=== PATIENT | female | born 1970 | race Caucasian/White ===

== ENCOUNTER 2021-07-11 14:25 | Inpatient (IN) | payer MEDICAID, SELFPAY ==
[2021-07-11 14:36] VITALS: BP 157/72; PULSE 68; RESP 17; TEMP 37.1; O2SAT 98
[2021-07-11 14:42] VITALS: BMI 41.1
[2021-07-11] MEDS: pantoprazole DR 40 mg Tablet PO (18:18)
[2021-07-11] MEDS: pregabalin 75 mg Capsule PO (18:18)
[2021-07-11 20:06] VITALS: BP 142/90; PULSE 70; RESP 18; O2SAT 99
[2021-07-12 06:00] VITALS: BP 117/70; PULSE 67; RESP 18; TEMP 36.4; O2SAT 99
[2021-07-12] MEDS: loperamide 2 mg Capsule PO (07:26)
[2021-07-12] MEDS: pantoprazole DR 40 mg Tablet PO ×2 (08:56→17:20)
[2021-07-12] MEDS: sertraline 100 mg Tablet PO (08:56)
[2021-07-12] MEDS: lisinopril 20 mg Tablet PO (08:56)
[2021-07-12] MEDS: pregabalin 75 mg Capsule PO ×2 (08:56→17:20)
[2021-07-12] MEDS: thyroid 60 mg Tablet 30 MG PO (08:59)
[2021-07-12] MEDS: acetaminophen 325 mg Tablet 650 MG PO ×2 (12:17→17:20)
[2021-07-12 14:00] VITALS: BP 117/70; PULSE 67; RESP 18; TEMP 36.4; O2SAT 99
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
[2021-07-12 14:22] VITALS: BP 113/73; PULSE 66; RESP 16; TEMP 36.4; O2SAT 100
[2021-07-12 19:55] VITALS: BP 97/64; PULSE 60; RESP 15; O2SAT 99
[2021-07-12] MEDS: amitriptyline 25 mg Tablet PO (20:59)
[2021-07-13 06:00] VITALS: BP 104/60; PULSE 55; RESP 14; O2SAT 97
[2021-07-13] MEDS: lisinopril 20 mg Tablet PO (08:52)
[2021-07-13] MEDS: sertraline 100 mg Tablet PO (08:52)
[2021-07-13] MEDS: pantoprazole DR 40 mg Tablet PO ×2 (08:52→17:52)
[2021-07-13] MEDS: pregabalin 75 mg Capsule PO ×2 (08:52→17:52)
[2021-07-13] MEDS: thyroid 60 mg Tablet 30 MG PO (08:52)
--- NOTE | 2021-07-13 12:58 | NPU.GN ---
[facility] Group Topic: Coping Bingo General Mood of Group: Patient did come to group on time, appropriately dressed. Good Hygiene. The patient did participate in oping Bingo. The patient did communicated when needed. The patient was not disruptive in group.
[2021-07-13] MEDS: acetaminophen 325 mg Tablet 650 MG PO ×2 (13:24→20:38)
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
[2021-07-13 13:56] VITALS: BP 106/74; PULSE 61; RESP 16; TEMP 36.9; O2SAT 93
[2021-07-13] MEDS: amitriptyline 25 mg Tablet 50 MG PO (20:38)
[2021-07-13 21:29] VITALS: BP 113/64; PULSE 59; RESP 18; TEMP 36.7; O2SAT 97
[2021-07-14 06:00] VITALS: BP 113/69; PULSE 72; RESP 17; TEMP 36.4; O2SAT 98
[2021-07-14] MEDS: thyroid 60 mg Tablet 30 MG PO (09:43)
[2021-07-14] MEDS: sertraline 100 mg Tablet PO (09:44)
[2021-07-14] MEDS: lisinopril 20 mg Tablet PO (09:44)
[2021-07-14] MEDS: pantoprazole DR 40 mg Tablet PO ×2 (09:44→17:10)
[2021-07-14] MEDS: pregabalin 75 mg Capsule PO ×2 (09:44→17:10)
[2021-07-14 14:00] VITALS: BP 96/64; PULSE 68; RESP 15; TEMP 36.8; O2SAT 100
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
[2021-07-14] MEDS: acetaminophen 325 mg Tablet 650 MG PO (15:57)
[2021-07-14 20:39] VITALS: BP 103/62; PULSE 65; RESP 18; TEMP 36.8; O2SAT 97
[2021-07-14] MEDS: amitriptyline 25 mg Tablet 50 MG PO (21:00)
[2021-07-15 06:00] VITALS: RESP 17; BMI 41.1
[2021-07-15] MEDS: pantoprazole DR 40 mg Tablet PO ×2 (08:28→17:25)
[2021-07-15] MEDS: lisinopril 20 mg Tablet PO (08:28)
[2021-07-15] MEDS: pregabalin 75 mg Capsule PO ×2 (08:28→17:25)
[2021-07-15] MEDS: sertraline 100 mg Tablet PO (08:28)
[2021-07-15] MEDS: thyroid 60 mg Tablet 30 MG PO (08:29)
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
[2021-07-15 14:00] VITALS: BP 105/73; PULSE 66; RESP 18; TEMP 36.8; O2SAT 99
[2021-07-15] MEDS: acetaminophen 325 mg Tablet 650 MG PO (16:31)
[2021-07-15] MEDS: amitriptyline 25 mg Tablet 50 MG PO (20:29)
[2021-07-15 21:00] VITALS: BP 109/68; PULSE 65; RESP 17; O2SAT 99
[2021-07-16 06:00] VITALS: BP 141/97; PULSE 91; RESP 20; O2SAT 100
--- NOTE | 2021-07-16 06:23 | PC.NURSE ---
Pt up to nurses desk, c/o rt lower abdominal pain described as sharp and radiating to her back. Dr Andrews notified. Order for Hospitalist consult received. Consult order placed, Dr Rai notified. Vital signs obtained, t-07.5, p-91, r-20, bp-141/97, spo2 of 100% on room air. Order received for HCG level, order noted and placed. Dr will see pt KASSY.
--- NOTE | 2021-07-16 07:58 | CT_ITS ---
WS: [id number] CT ABDOMEN AND PELVIS WITH CONTRAST HISTORY: RLQ pain TECHNIQUE: Imaging performed of the abdomen and pelvis with IV contrast. Single phase imaging of the abdomen. Coronal and sagittal reformats are submitted. All CT scans at [facility] use at [address] one of these dose optimization techniques: automated exposure control; mA and/or kV adjustment per patient size (includes targeted exams where dose is matched to clinical indication); or iterative re construction. IV CONTRAST: Omnipaque 300; 95 mL IV. Oral contrast: No DLP: 2123.22 mGy.cm COMPARISON: None available. Lower thorax: Lung bases are clear. Heart is normal size. Small hiatal hernia. Liver/biliary system: Normal size with no intrahepatic dilatation. Gallbladder: Status post cholecystectomy. Pancreas: Normal size pancreas and pancreatic duct. No adjacent inflammation. Spleen: Top normal size at 13.2 cm. Adrenal glands: Normal. Right kidney: 4 mm calcification in the distal RIGHT ureter. There is very minimal dilatation of the RIGHT renal pelvis and ureter. No edema additional calcifications are identified. Left kidney: Low-attenuation 18 mm nodule upper pole no calcifications or obstruction. Aorta: Normal. Lymphadenopathy: None. Free fluid: None. GI tract: Normal appendix. There is mild diffuse constipation with no obstruction. No bowel wall thic kening. Abdominal wall: Fat containing umbilical hernia. Pelvis: No free fluid or adenopathy within the pelvis. Bones: Mild disc space narrowing at L4-5 and L5-S1. CT/CT abdomen pelvis w con* [id number] IMPRESSION: 1. 4 mm distal RIGHT ureteral calcification causing a very minimal hydroureter onephrosis. 2. Normal appendix. 3. No free air or adenopathy. 4. Prior cholecystectomy.
--- NOTE | 2021-07-16 08:00 | P.CONIM_ITS ---
Providers/Reason For Consult Consulting Physician/Specialty*: Israel Olivas MD, hospitalist Reason for Consult*: Abdominal pain Attending Physician: Jerson Dang MD History of Present Illness History of Present Illness Mee Wolfe is a 50 year old female who reports she has had acute onset of abdominal pain this morning, around 4 AM or so. She states it is in the right side, more on the lower side. She denies having discomfort like this in the past. She has had kidney stone issues but it is felt different. She reports some nausea but no vomiting. She has had no blood in her stools or black or tarry stools. Last bowel movement was yesterday, and was not loose or hard. Nursing has not recorded any fevers. She was hospitalized initially for suicide attempt on July 12. Previous to this hospital stay she has been in several facilities and had work-up of right upper quadrant abdominal pain. From previous work-up in outside hospital around 2 weeks ago she received an EGD which demonstrated gastritis. CT abdomen and pelvis with contrast demonstrated a 3 mm right kidney stone, with no evidence of obstruction or hydroureter. Laboratory at that time demonstrated some anemia, consistent with iron deficiency anemia. Patient reports she has not had a period and 5 to 6 years and is postmenopausal. Urine test both serum and urine done around July 05 and July 06 were both negative. Review of Systems General: Reports: 10 or more systems reviewed and unremarkable except in HPI and below Const: Denies: fever(s) or chills Eyes: Denies: change in vision ENMT: Denies: throat pain Card: Denies: chest pain Resp: Denies: dyspnea GI: Reports: abdominal pain and nausea; Denies: vomiting, diarrhea, constipation, hematochezia or melena : Denies: difficulty voiding, dysuria or urinary urgency Musc: Reports: back pain; Denies: neck pain Skin/Breast: Denies: rash Neuro: Denies: headache(s) Psych: Reports: depression Endo: Denies: polyuria Alberto/Lymph: Denies: easy bruising All/Imm: Denies: urticaria Meds/Allergies Home Medications and Allergies Home Medications Medication Instructions Recorded Confirmed Last Taken Type Damar Thyroid 30 mg PO DAILY 07/11/21 07/11/21 Unknown History hydroxyzine pamoate 25 mg PO QID PRN 07/11/21 07/11/21 Unknown History lisinopril 20 mg PO DAILY 07/11/21 07/11/21 Unknown History ondansetron 4 mg BUCCAL TID PRN 07/11/21 07/11/21 Unknown History pantoprazole 40 mg PO BID 07/11/21 07/11/21 Unknown History pregabalin 75 mg PO BID 07/11/21 07/11/21 Unknown History promethazine 25 mg PO QID PRN 07/11/21 07/11/21 Unknown History sertraline 100 mg PO DAILY 07/11/21 07/11/21 Unknown History Allergies Allergy/AdvReac Type Severity Reaction Status Date / Time cumin Allergy Mild ADR-Itching Verified 07/11/21 17:52 tomato Allergy ALGY-Rash Verified 07/11/21 17:52 Current Medications Current Medications Generic Name Dose Route Start Last Admin Trade Name Freq PRN Reason Stop Dose Admin Acetaminophen 650 mg 07/11/21 14:36 07/15/21 16:31 Acetaminophen 325 Mg Tablet PO 650 mg Q4H PRN Administration MILD PAIN Amitriptyline HCl 50 mg 07/13/21 21:00 07/15/21 20:29 Amitriptyline 25 Mg Tablet PO 50 mg BEDTIME ALESSANDRA Administration Lisinopril 20 mg 07/12/21 09:00 07/15/21 08:28 Lisinopril 20 Mg Tablet PO 20 mg DAILY ALESSANDRA Administration Loperamide HCl 2 mg 07/11/21 14:36 07/12/21 07:26 Loperamide 2 Mg Capsule PO 2 mg Q6H PRN Administration DIARRHEA Pantoprazole Sodium 40 mg 07/11/21 18:00 07/15/21 17:[address] 40 Mg Tablet PO 40 mg BID ALESSANDRA Administration Pregabalin 75 mg 07/11/21 18:00 07/15/21 17:25 Pregabalin 75 Mg Capsule PO 75 mg BID ALESSANDRA Administration Sertraline HCl 100 mg 07/12/21 09:00 07/15/21 08:28 Sertraline 100 Mg Tablet PO 100 mg DAILY ALESSANDRA Administration Thyroid 30 mg 07/12/21 09:00 07/15/21 08:29 Thyroid 60 Mg Tablet PO 30 mg DAILY ALESSANDRA Administration PFSH Acute PFSH: Medical History (Updated 07/16/21 @ 08:11 by Israel Olivas MD) Asthma Chronic back pain Depression, major, severe recurrence Fibromyalgia Gastritis GERD (gastroesophageal reflux disease) Hypertension Hypothyroidism Surgical History (Updated 07/16/21 @ 08:05 by Israel Olivas MD) History of History of cholecystectomy History of surgery on arm Family History (Updated 07/16/21 @ 08:06 by Israel Olivas MD) Other Cancer Social History (Updated 07/16/21 @ 08:06 by Israel Olivas MD) Smoking and tobacco status: former smoker Alcohol intake: never Vitals/I&O/Wt Last Vital Signs Temp 98.2 F 07/15/21 14:00 Pulse 91 07/16/21 06:00 Resp 20 H 07/16/21 06:00 BP 141/97 07/16/21 06:00 Pulse Ox 100 07/16/21 06:00 Weight last 48 hrs Weight 108.862 kg Physical Exam Narrative: EXAM NARRATIVE: General exam demonstrates a white female, co mplaining of right lower quadrant pain, holding pressure on the area HEENT: Pupils equally round. Oropharynx clear. Neck is supple no lymphadenopathy or thyromegaly Cardiovascular regular rate and rhythm, no murmur Lungs clear Abdomen is soft. Positive bowel sounds. Tenderness right lower quadrant. No obvious organomegaly. exam is deferred Extremities no cyanosis clubbing or edema, cap refill brisk. Skin no rash Neuro no obvious focal deficits Data Other Data: Other data: Laboratory from July 05 demonstrated a sodium 139, potassium 4.8, chloride 105, bicarb 26, BUN 25, creatinine 1.4, glucose 93 LFTs were normal. Lipase was normal. CT abdomen and pelvis with contrast demonstrated splenomegaly, 3 mm calculus right kidney Urine test on July 06 was negative. UA demonstrated trace protein and trace blood and was leukocyte Estrace negative. UDS was positive for opiates Covid PCR negative B12 level normal. Iron saturation low. TSH normal. Written historical report references an EGD done 2 to 4 weeks ago that showed gastritis, done for right-sided, upper quadrant pain. EKG demonstrated normal sinus rhythm, normal axis To my knowledge she has had no other imaging tests or lab work since around July 06. A&P Assessment and plan (1) Abdominal pain: Etiology unclear. She was complaining more of right upper quadrant discomfort during her last hospital stay at an outside hospital. As the location has changed we will have to reevaluate. Obtain serum test, CBC, CMP, lipase, urinalysis stat. CT abdomen and pelvis with contrast urgent. N.p.o. for now. Has medication for nausea. If work-up completely negative and pain persists consider pelvic ultrasound. Differential diagnosis could be ureterolithiasis, appendicitis, gynecologic in nature, functional. Status: Acute Additional A&P Information Suicide attempt, severe depression. Under care of psychiatry. Hypothyroidism, TSH recently normal Anemia, iron deficient. Recent diagnosis of gastritis on EGD several weeks ago. Consider oral iron as an outpatient, and reevaluation with a CBC as outpatient. Fibromyalgia Chronic back pain GERD/gastritis. 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
[2021-07-16] MEDS: sertraline 100 mg Tablet PO (08:30)
[2021-07-16] MEDS: lisinopril 20 mg Tablet PO (08:30)
[2021-07-16] MEDS: thyroid 60 mg Tablet 30 MG PO (08:30)
[2021-07-16] MEDS: pregabalin 75 mg Capsule PO ×2 (08:30→18:06)
[2021-07-16] MEDS: pantoprazole DR 40 mg Tablet PO ×2 (08:31→18:06)
[2021-07-16 11:36] LABS: Basophils % 0.8 %; Eosinophils # 0.1 10^3/uL (0.0-0.8); Hematocrit 33.5 % (37.0-47.0); Hemoglobin 10.5 g/dL (11.5-15.3); Lymphocytes # 1.3 10^3/uL (0.8-4.8); Lymphocytes % 26.4 %; Mean Corpuscular HGB Conc 31.3 g/dL (30.0-36.0); Mean Corpuscular Hemoglobin 27.3 pg (28.0-34.0); Mean Corpuscular Volume 87.2 fl (81-99); Mean Platelet Volume 10.4 fL (7.4-10.4); Monocytes # 0.2 10^3/uL (0.2-0.9); Neutrophils # 3.22 10^3/uL (1.8-7.7); Neutrophils % 67.6 %; Nucleated Red Blood Cells % 0 %; Platelet Count 228 10^3/cmm (130-400); Red Blood Count 3.84 10^6/uL (4.1-5.3); Red Cell Distribution Width 15.2 % (12.1-15.1); White Blood Count 4.8 10^3/uL (4.0-10.0)
[2021-07-16] MEDS: iohexol 300 mg/mL 100 mL Btl IV (12:05)
[2021-07-16 12:22] LABS: HCG, Serum Qual Negative (Negative)
[2021-07-16 12:28] LABS: Alanine Aminotransferase 11 U/L (0-33); Albumin Level 3.6 g/dL (3.5-5.2); Alkaline Phosphatase 74 IU/L (35-105); Chloride 106 mmol/L (98-107); Potassium 4.6 mmol/L (3.5-5.1); Sodium 140 mmol/L (136-145)
--- NOTE | 2021-07-16 12:37 | PC.NURSE ---
PT OFF UNIT TO CT VIA WHEELCHAIR WITH NURSING STAFF X1 FROM 1150 TO 1230.
[2021-07-16 13:10] LABS: Anion Gap 14.6 (5-19); Aspartate Amino Transferase 16 U/L (0-32); Blood Urea Nitrogen 19 mg/dL (6-20); Calcium 8.7 mg/dL (8.5-10.5); Carbon Dioxide 24 mmol/L (22-29); Globulin 2.3 g/dL (1.3-4.6); Glomerular Filtration Rate 43.2 mL/min (90-130); Glucose 75 mg/dL (65-115); Lipase 42 U/L (13-60); Osmolality Calculated 291 mOsm/kg (285-295); Total Bilirubin 0.3 mg/dL (0.15-1.2); Total Protein 5.9 g/dL (6.6-8.7)
--- NOTE | 2021-07-16 13:21 | NPU.GN ---
[facility] Topic:Psychiatric Education General Mood of Group: Mee did not attend or participate in group today.
[2021-07-16 13:56] VITALS: BP 125/69; PULSE 85; RESP 16; TEMP 36.3; O2SAT 98
[2021-07-16] MEDS: ondansetron 4 MG Tablet PO ×2 (14:23→21:35)
[2021-07-16] MEDS: HYDROcodone-acetaminophen 5-325 mg Tablet 1 TAB PO ×3 (14:23→22:33)
[2021-07-16] MEDS: amitriptyline 25 mg Tablet 50 MG PO (20:11)
[2021-07-16 22:00] VITALS: BP 104/56; PULSE 68; RESP 15; O2SAT 94
[2021-07-17] MEDS: HYDROcodone-acetaminophen 5-325 mg Tablet 1 TAB PO ×2 (02:14→07:28)
[2021-07-17 06:00] VITALS: BP 130/74; PULSE 70; RESP 16; O2SAT 98
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
[2021-07-17] MEDS: thyroid 60 mg Tablet 30 MG PO (09:57)
[2021-07-17] MEDS: sertraline 100 mg Tablet PO (09:57)
[2021-07-17] MEDS: pregabalin 75 mg Capsule PO (09:57)
[2021-07-17] MEDS: pantoprazole DR 40 mg Tablet PO (09:59)
[2021-07-17] MEDS: lisinopril 20 mg Tablet PO (09:59)
[2021-07-17] MEDS: hyDROXYzine 25 mg Capsule 50 MG PO (10:18)
--- NOTE | 2021-07-17 11:22 | PM.PN ---
Subjective Subjective: Interval history: Mee reports she feels quite a bit better. Much less pain. Has not yet gotten the urinalysis. Medications: Reviewed: Yes Vitals/I&O/Wt Last Vital Signs Temp 97.3 F L 07/16/21 13:56 Pulse 70 07/17/21 06:00 Resp 16 07/17/21 06:00 BP 130/74 07/17/21 06:00 Pulse Ox 98 07/17/21 06:00 Physical Exam Narrative: EXAM NARRATIVE: General exam no apparent distress Neck is supple no lymphadenopathy or thyromegaly Cardiovascular regular rate and rhythm, no murmur Lungs clear Abdomen is soft. Positive bowel sounds. No significant tenderness Extremities no cyanosis clubbing or edema, cap refill brisk. Data : 07/16/21 11:17 07/16/21 11:17 A&P Assessment and plan (1) Abdominal pain: Consistent with right distal ureteral stone. Awaiting urinalysis. She will need outpatient follow-up with urology. Her discomfort is greatly improved. Status: Acute Additional A&P Information Suicide attempt, severe depression. Under care of psychiatry. Hypothyroidism, TSH recently normal Anemia, iron deficient. Recent diagnosis of gastritis on EGD several weeks ago. Consider oral iron as an outpatient, and reevaluation with a CBC as outpatient. Fibromyalgia Chronic back pain GERD/gastritis. Currently on Protonix Multiple other medical problems as outlined in past medical history Attestations Medical Necessity Statement*: As per psychiatry Coding Level of Care Code Acute Resistor Inspector for [facility] Fwd Diagnoses Abdominal pain R10.9
[2021-07-17 11:59] LABS: Bilirubin Urine Neg (Negative); Blood Urine Neg (Negative); Glucose Urine UA Norm (Normal); Ketones Urine Negative (Negative); Leukocyte Esterase Urine Negative (Negative); Nitrate Urine Negative (Negative); Protein Urine Neg (Negative); Urine Appearance Clear (CLEAR); Urine Color Yellow (Yellow); Urobilinogen Urine Norm (Negative); pH Urine 5 (5-7)
[2021-07-17 12:00] LABS: Add Urine Culture? No; RBC Urine 0-4 /hpf (0-2); Squamous Epithelial Cell Urine 0-4 /hpf (0-5); WBC Urine 0-4 /hpf (0-5)
--- NOTE | 2021-07-17 12:28 | NPU.GN ---
[facility] Group Topic:roup Topic: What are we Thankful For General Mood of Group: Mee did not attend group today she wanted to sleep. and participated .
[2021-07-17 13:11] VITALS: BP 130/74; PULSE 70; RESP 16; O2SAT 98
== END 2021-07-17 13:35 | disposition home or self-care (01) | DRG 885 ==
PROVIDERS: Internal Medicine; Student in an Organized Health Care Education/Training Program; Admitting Provider Psychiatry & Neurology Psychiatry; Visit Provider Psychiatry & Neurology Psychiatry
DX: F33.2 Major depressive disorder, recurrent severe without psychotic features (principal); R45.851 Suicidal ideations; Z91.14 Patient's other noncompliance with medication regimen; Z59.02 Unsheltered homelessness; M79.7 Fibromyalgia; Z62.810 Personal history of physical and sexual abuse in childhood; Z91.410 Personal history of adult physical and sexual abuse; K29.70 Gastritis, unspecified, without bleeding; N20.0 Calculus of kidney; D50.9 Iron deficiency anemia, unspecified; Z78.0 Asymptomatic menopausal state; Z91.51 Personal history of suicidal behavior; Z87.891 Personal history of nicotine dependence; E03.9 Hypothyroidism, unspecified; I10 Essential (primary) hypertension; G89.29 Other chronic pain; M54.9 Dorsalgia, unspecified
CPT/HCPCS: 36415; 74177; 80053; 81001; 81025; 83690; 84703; 85025; 90935; 97150; 97165; Q0162; Q9967

== ENCOUNTER 2021-08-08 10:30 | Emergency (ER) | payer SELFPAY ==
[2021-08-08 10:41] VITALS: BP 148/104; PULSE 85; RESP 24; TEMP 37.1; O2SAT 98; BMI 41.1
== END 2021-08-08 12:33 | disposition left against medical advice (07) ==
PROVIDERS: Emergency Provider Family Medicine
DX: Z53.21 Procedure and treatment not carried out due to patient leaving prior to being seen by health care provider (principal)
CPT/HCPCS: 87635; 99282

== ENCOUNTER 2021-08-10 11:20 | Emergency (ER) | payer MEDICAID, SELFPAY ==
[2021-08-10 11:34] VITALS: BP 125/80; PULSE 102; RESP 20; TEMP 38.7; O2SAT 96
--- NOTE | 2021-08-10 11:58 | ECG_ITS ---
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 Measurements Intervals [place] Rate: 96 P: 39 PA: 153 QRS: -43 QRSD: 100 T: 35 QT: 326 QTc: 412 Interpretive Statements SINUS RHYTHM LEFT AXIS DEVIATION [QRS AXIS < -30] MINIMAL VOLTAGE CRITERIA FOR LVH, CONSIDER NORMAL VARIANT [MEETS CRITERIA IN ONE OF: R(aVL), S(V1), R(V5), R(V5/V6)+S(V1)] POSSIBLE ANTEROLATERAL MYOCARDIAL INFARCTION , OF INDETERMINATE AGE [30 ms Q WAVE IN I/aVL/V3-V6] No previous ECG available for comparison Electronically Signed On 08-11-2021 7:33:25 BOOM STICK WORKER by Mimi May M.D. [email or web address]
--- NOTE | 2021-08-10 11:58 | XR_ITS ---
WS: [id number] XR chest 1V portable [id number] REASON FOR EXAM: sob FINDINGS: Suboptimal inspiratory effort. Heart is at the upper limits of normal in size. No definite active pulmonary parenchymal or pleural disease. No significant abnormality of the bony thorax. XR/XR chest 1V portable [id number] IMPRESSION: No acute abnormality.
--- NOTE | 2021-08-10 12:18 | W.ED.COVID ---
Documented by User: BETO Humphreys 08/11/21 11:29 HPI - COVID General: Chief Complaint: COVID symptoms Stated Complaint: COVID +/SOB,FATIGUE Time Seen by Provider: 08/10/21 11:58 Triage information: Has fever, cough or shortness of breath. Exposure to COVID + person last 14 days History of Present Illness: HPI Narrative: Patient is a 50-year-old female that comes to the ED with shortness of breath and upper respiratory symptoms. Patient tested positive for COVID-19 a couple days ago on August 08. She says her symptoms started approximately 4 days ago and she has had a dry cough, fever, body aches, shortness of breath, nasal drainage and congestion and a sore throat. She says the shortness of breath seems to have progressed and she has an albuterol inhaler she uses at home and it has not helped. She is also developing a little bit of mild chest pain that centrally located that started within the last 24 hours. COVID 19 common symptoms: positive fever(s), non-productive cough, dyspnea, fatigue, body aches, throat pain, nasal congestion and diarrhea; negative chills, productive cough, headache(s), nausea or vomiting COVID 19 other sytmptoms: positive chest pain COVID Results: SARS-CoV-2 RNA (RT-PCR) Detected (NOT DETECTED) A 08/08/21 11:43 08/08/21 Review of Systems Const: Reports: fever(s), body aches and fatigue; Denies: chills Eyes: Denies: change in vision or eye discomfort ENMT: Reports: throat pain and nasal congestion; Denies: odynophagia or nasal discharge Card: Reports: chest pain; Denies: palpitations, edema, swelling of feet/ankles, dyspnea on exertion or orthopnea Resp: Reports: dyspnea and non-productive cough; Denies: productive cough GI: Reports: diarrhea; Denies: abdominal pain, nausea, vomiting, constipation or hematochezia : Denies: flank pain, dysuria or hematuria Musc: Denies: neck pain, back pain or extremity swelling Skin/Breast: Denies: rash or new lesions Neuro: Denies: headache(s), numbness in extremities or weakness in extremities PFS ED PFSH: Medical History Asthma Chronic back pain COVID-19 Positive COVID test 08/08/2021. Depression, major, severe recurrence Fibromyalgia Gastritis GERD (gastroesophageal reflux disease) Hypertension Hypothyroidism Surgical History History of History of cholecystectomy History of surgery on arm Family History Other Cancer Social History Smoking and tobacco status: former smoker Alcohol intake: never Physical Exam Const: COMMON NORMALS: no acute distress, patient oriented x3 and alert GENERAL APPEARANCE: cooperative and comfortable HENMT: COMMON NORMALS: normocephalic HEAD & SCALP: normocephalic MOUTH: Normal oral and palatal mucosa present THROAT: posterior oropharynx normal and uvula midline Neck/C-Spine: COMMON NORMALS: supple GENERAL: Yes normal visual inspection Resp: COMMON NORMALS: normal respiratory effort, No retractions, No use of accessory muscles and clear to auscultation bilaterally EFFORT & INSPECTION: Yes tachypneic (20 respirations per minute) AUSCULTATION: clear to auscultation bilaterally Cardio: COMMON NORMALS: regular rate, regular rhythm, S1 normal heart sound present, S2 normal heart sound present, No gallops present (Cardio), No clicks present (Cardio), No murmurs present (Cardio) and Peripheral pulses 2+ throughout RATE: regular rate RHYTHM: regular rhythm HEART SOUNDS: S1 normal heart sound present and S2 normal heart sound present PERIPHERAL PULSES: Peripheral pulses 2+ throughout GI: COMMON NORMALS: Normal to inspection, nondistended, normoactive bowel sounds present, Soft to palpation, non-tender and no masses PALPATION: Yes Soft to palpation : COMMON NORMALS: Yes no CVA tenderness BLADDER/KIDNEY EXAM: Yes no CVA tenderness Back/Pelvis: COMMON NORMALS: no CVA tenderness Extremity: COMMON NORMALS: normal to inspection Neuro: COMMON NORMALS: patient oriented x3 and moves all extremities SENSORIUM/ORIENTATION: Yes alert Skin: GENERAL SKIN EXAM: dry skin Course Vital Signs: Vital signs: Vital Signs Temperature 101.7 F H 08/10/21 11:34 Pulse Rate 80 08/10/21 16:36 Respiratory Rate 18 08/10/21 16:36 Blood Pressure 125/80 12/17/21 11:34 Pulse Oximetry 96 08/10/21 16:36 MDM - COVID MDM Narrative: Medical decision making narrative: Patient is a 50-year-old female comes to the ED with Covid symptoms. She has been having symptoms of fever, body aches, dry cough, shortness of breath, nasal drainage and congestion and sore throat. She tested positive for COVID-19 on August 08. Patient's temperature was 101.7 upon arrival in the ED and her respirations were slightly elevated at 20/min O2 98% on room air. Rest of her vitals were stable. CBC was unremarkable. Patient's sodium was 131 her rest of CMP was unremarkable. Troponin negative. Lactic was normal 0.7. EKG showed normal sinus rhythm with no ST segment elevation or depression noted. Blood cultures pending. D-dimer was elevated at 1.12. I went and talked with Dr. Mcdonald about patient case and my thoughts on patient should get a CTA of chest with the D-dimer level. Dr. Mcdonald did not think patient needs to have a CTA of chest with her D-dimer level. Chest x-ray showed no acute findings. Patient was given 1 L of IV fluids to help with the sodium level and some Tylenol, Decadron and a DuoNeb breathing treatment while here in the ED. I placed an order with case management for patient to be set up for monoclonal antibody infusions. Patient signed consent form for MCA infusion. Patient diagnosed with COVID-19 and discharged home with a prescription for Decadron and Z-Brandan. Return to ED precautions given. Patient stood agree with plan. Lab Data: Attestation: I reviewed the patient's lab results. Labs: Lab Results 08/10/21 08/10/21 08/10/21 04:25 12:25 12:25 WBC 4.8 10^3/uL 10^3/ uL (4.0-10.0) RBC 3.99 10^6/uL L 10 ^6/uL (4.1-5.3) Hgb 10.8 g/dL L g/dL (11.5-15.3) Hct 33.8 % L % (37.0-47.0) MCV 84.7 fl fl (81-99) MCH 27.1 pg L pg (28.0-34.0) MCHC 32.0 g/dL g/dL (30.0-36.0) RDW 15.6 % H % (12.1-15.1) Plt Count 165 10^3/cmm 10^3 /cmm (130-400) MPV 10.6 fL H fL (7.4-10.4) Neut % (Auto) 82.9 % % Lymph % (Auto) 8.4 % % [place] % (Auto) 6.7 % % Eos % (Auto) 0.8 % % Baso % (Auto) 0.8 % % Neut # (Auto) 3.96 10^3/uL 10^3 /uL (1.8-7.7) Lymph # (Auto) 0.4 10^3/uL L 10^ 3/uL (0.8-4.8) [place] # (Auto) 0.3 10^3/uL 10^3/ uL (0.2-0.9) Eos # (Auto) 0.0 10^3/uL 10^3/ uL (0.0-0.8) Baso # (Auto) 0.0 10^3/uL 10^3/ uL (0.0-0.1) Nucleated RBC % (a uto) 0 % % Nucleated RBCs # 0.0 /100WBC /100W BC D-Dimer 1.12 ug/mIFEU H u g/mIFEU (0-0.59) Sodium Potassium Chloride Carbon Dioxide Anion Gap BUN Creatinine GFR Calculation Glucose Calculated Osmolal ity Lactic Acid Calcium Total Bilirubin AST ALT Alkaline Phosphata se Troponin T Baselin e Troponin T 120 Min [place] 8.81 ng/L ng/L (0-10) Delta Troponin T -0.19 ABS# L ABS# (0-10) Total Protein Albumin Globulin 08/10/21 08/10/21 08/10/21 12:25 12:25 12:25 WBC RBC Hgb Hct MCV MCH MCHC RDW Plt Count MPV Neut % (Auto) Lymph % (Auto) [place] % (Auto) Eos % (Auto) Baso % (Auto) Neut # (Auto) Lymph # (Auto) [place] # (Auto) Eos # (Auto) Baso # (Auto) Nucleated RBC % (a uto) Nucleated RBCs # D-Dimer Sodium 131 mmol/L L mmol /L (136-145) Potassium 4.5 mmol/L mmol/L (3.5-5.1) Chloride 99 mmol/L mmol/L (98-107) Carbon Dioxide 17 mmol/L L mmol/ L (22-29) Anion Gap 19.5 H (5-19) BUN 11 mg/dL mg/dL (6-20) Creatinine 0.9 mg/dL mg/dL (0.5-0.9) GFR Calculation 66.0 mL/min L mL/ min (90-130) Glucose 84 mg/dL mg/dL (65-115) Calculated Osmolal ity 271 mOsm/kg L mOs m/kg (285-295) Lactic Acid 0.7 mmol/L mmol/L (0.5-2.2) Calcium 8.2 mg/dL L mg/dL (8.5-10.5) Total Bilirubin 0.3 mg/dL mg/dL (0.15-1.2) AST 17 U/L U/L (0-32) ALT 11 U/L U/L (0-33) Alkaline Phosphata se 102 IU/L IU/L (35-105) Troponin T Baselin e 9 ng/L ng/L (0-10) Troponin T 120 Min [place] Delta Troponin T Total Protein 6.5 g/dL L g/dL (6.6-8.7) Albumin 3.8 g/dL g/dL (3.5-5.2) Globulin 2.7 g/dL g/dL (1.3-4.6) Imaging Data: CXR: Attestation: I personally reviewed and interpreted this imaging study as follows: Radiologist's impression: [address] [address] XRay Report Signed Patient: Mee Wolfe Unit #: [id number] : 1970 Age/Sex: 50 / F ADM Date: 08/10/21 Loc: ER Room/Bed: Attending Dr: Ordering Provider/Ordering MD: Enrique Kimble Date of Service: 08/10/21 Procedure(s): XR chest 1V portable [id number] Accession Number(s): [id number] Report Number: [id number] WS: [id number] XR chest 1V portable [id number] REASON FOR EXAM: sob FINDINGS: Suboptimal inspiratory effort. Heart is at the upper limits of normal in size. No definite active pulmonary parenchymal or pleural disease. No significant abnormality of the bony thorax. XR/XR chest 1V portable [id number] IMPRESSION: No acute abnormality. Dictated By: Fahad Yañez Jr, MD Signed By: Fahad Yañez Jr, MD Signed Date/Time: 08/10/21 1214 DD/ 1208 EKG Data: EKG 1: Attestation: I personally reviewed and interpreted this EKG as follows: EKG interpretation date: 08/10/21 Interpretation: Sinus rhythm, 96 bpm, no ST segment elevation or depression seen. COVID Results: SARS-CoV-2 RNA (RT-PCR) Detected (NOT DETECTED) A 08/08/21 11:43 08/08/21 Discharge Plan Discharge Patient Disposition: Home Clinical Impression: COVID-19 Condition: Stable Prescriptions: New Decadron 6 mg tablet 6 mg PO DAILY 7 Days Qty: 7 RF: 0 azithromycin 250 mg tablet See Rx Instructions .ROUTE .COMPLEX Qty: 6 RF: 0 No Action albuterol sulfate [ProAir HFA] 90 mcg/actuation HFA aerosol inhaler 2 puff inhalation Q6H PRN (Reason: shortness of breath or wheezing) Qty: 8.5 RF: 3 ondansetron HCl [Zofran] 4 mg Tablet 4 mg PO Q8H PRN (Reason: Nausea) Qty: 0 RF: 0 hydroxyzine pamoate 25 mg 25 mg PO QID PRN (Reason: Anxiety) RF: 0 lisinopril 20 mg Tablet 20 mg PO DAILY 30 Days Qty: 30 RF: 0 sertraline 100 mg Tablet 100 mg PO DAILY 30 Days Qty: 30 RF: 1 amitriptyline 25 mg Tablet 50 mg PO BEDTIME 30 Days Qty: 30 RF: 1 pantoprazole 40 mg Tablet,Delayed Release (Dr/Ec) 40 mg PO BID MDD see pharmacy comment Qty: 0 RF: 0 promethazine 25 mg Tablet 25 mg PO QID PRN (Reason: nausea) Qty: 0 RF: 0 pregabalin 75 mg Capsule 75 mg PO BID 30 Days Qty: 60 RF: 0 [employer] Thyroid 30 mg 30 mg PO DAILY 30 Days Qty: 30 RF: 1 Discharge Orders: Discharge ED (Routine); Ordered 08/10/21 Ordered By: Enrique Kimble Discharge Diet: Regular Discharge Activity: Increase activity as tolerated Patient Instructions: Viral Syndrome (ED), COVID-19 (Coronavirus Disease 2019) (ED) Activity Restrictions/Additional Instructions: Follow-up with medical provider as directed. Case management should be contacting you in the next several days set up an appointment for monoclonal antibody infusions. You can also call the [facility] Covid hotline [phone] to schedule your infusions as well. Take medications as prescribed. Return to the ER or your medical provider if condition worsens. Please read and understand discharge instructions. Thank you for choosing [facility] for your healthcare needs today. Please realize this is an emergency room and that we are providing you with a medical screening exam and this may not be complete and all inclusive of all the testing and or work up that you may need to determine your ailment or severity of your illness. It is very important that you follow up as instructed or that you return to the Emergency Department should you have concerns or if your condition changes or worsens in any way. Coding Level of Care Code ED Visual Basic .Net Developer for Chg Fwd Exam Comprehensive Documented by User: Nasir Mcdonald DO 08/13/21 06:44 HPI - COVID General: Chief Complaint: COVID symptoms Stated Complaint: COVID +/SOB,FATIGUE Time Seen by Provider: 08/10/21 11:58 COVID Results: SARS-CoV-2 RNA (RT-PCR) Detected (NOT DETECTED) A 08/08/21 11:43 08/08/21 [facility] ED PFSH: Medical History Asthma Chronic back pain COVID-19 Positive COVID test 08/08/2021. Depression, major, severe recurrence Fibromyalgia Gastritis GERD (gastroesophageal reflux disease) Hypertension Hypothyroidism Surgical History History of History of cholecystectomy History of surgery on arm Family History Other Cancer Social History Smoking and tobacco status: former smoker Alcohol intake: never Course Vital Signs: Vital signs: Vital Signs Temperature 101.7 F H 08/10/21 11:34 Pulse Rate 80 08/10/21 16:36 Respiratory Rate 18 08/10/21 16:36 Blood Pressure 125/80 08/10/21 11:34 Pulse Oximetry 96 08/10/21 16:36 MDM - COVID MDM Narrative: Medical decision making narrative: Chart reviewed and patient discussed with midlevel. Agree with assessment and plan. Lab Data: Labs: Lab Results 08/10/21 08/10/21 08/10/21 04:25 12:25 12:25 WBC 4.8 10^3/uL 10^3/ uL (4.0-10.0) RBC 3.99 10^6/uL L 10 ^6/uL (4.1-5.3) Hgb 10.8 g/dL L g/dL (11.5-15.3) Hct 33.8 % L % (37.0-47.0) MCV 84.7 fl fl (81-99) MCH 27.1 pg L pg (28.0-34.0) MCHC 32.0 g/dL g/dL (30.0-36.0) RDW 15.6 % H % (12.1-15.1) Plt Count 165 10^3/cmm 10^3 /cmm (130-400) MPV 10.6 fL H fL (7.4-10.4) Neut % (Auto) 82.9 % % Lymph % (Auto) 8.4 % % [place] % (Auto) 6.7 % % Eos % (Auto) 0.8 % % Baso % (Auto) 0.8 % % Neut # (Auto) 3.96 10^3/uL 10^3 /uL (1.8-7.7) Lymph # (Auto) 0.4 10^3/uL L 10^ 3/uL (0.8-4.8) [place] # (Auto) 0.3 10^3/uL 10^3/ uL (0.2-0.9) Eos # (Auto) 0.0 10^3/uL 10^3/ uL (0.0-0.8) Baso # (Auto) 0.0 10^3/uL 10^3/ uL (0.0-0.1) Nucleated RBC % (a uto) 0 % % Nucleated RBCs # 0.0 /100WBC /100W BC D-Dimer 1.12 ug/mIFEU H u g/mIFEU (0-0.59) Sodium Potassium Chloride Carbon Dioxide Anion Gap BUN Creatinine GFR Calculation Glucose Calculated Osmolal ity Lactic Acid Calcium Total Bilirubin AST ALT Alkaline Phosphata se Troponin T Baselin e Troponin T 120 Min [place] 8.81 ng/L ng/L (0-10) Delta Troponin T -0.19 ABS# L ABS# (0-10) Total Protein Albumin Globulin 08/10/21 08/10/21 08/10/21 12:25 12:25 12:25 WBC RBC Hgb Hct MCV MCH MCHC RDW Plt Count MPV Neut % (Auto) Lymph % (Auto) [place] % (Auto) Eos % (Auto) Baso % (Auto) Neut # (Auto) Lymph # (Auto) [place] # (Auto) Eos # (Auto) Baso # (Auto) Nucleated RBC % (a uto) Nucleated RBCs # D-Dimer Sodium 131 mmol/L L mmol /L (136-145) Potassium 4.5 mmol/L mmol/L (3.5-5.1) Chloride 99 mmol/L mmol/L (98-107) Carbon Dioxide 17 mmol/L L mmol/ L (22-29) Anion Gap 19.5 H (5-19) BUN 11 mg/dL mg/dL (6-20) Creatinine 0.9 mg/dL mg/dL (0.5-0.9) GFR Calculation 66.0 mL/min L mL/ min (90-130) Glucose 84 mg/dL mg/dL (65-115) Calculated Osmolal ity 271 mOsm/kg L mOs m/kg (285-295) Lactic Acid 0.7 mmol/L mmol/L (0.5-2.2) Calcium 8.2 mg/dL L mg/dL (8.5-10.5) Total Bilirubin 0.3 mg/dL mg/dL (0.15-1.2) AST 17 U/L U/L (0-32) ALT 11 U/L U/L (0-33) Alkaline Phosphata se 102 IU/L IU/L (35-105) Troponin T Baselin e 9 ng/L ng/L (0-10) Troponin T 120 Min [place] Delta Troponin T Total Protein 6.5 g/dL L g/dL (6.6-8.7) Albumin 3.8 g/dL g/dL (3.5-5.2) Globulin 2.7 g/dL g/dL (1.3-4.6) COVID Results: SARS-CoV-2 RNA (RT-PCR) Detected (NOT DETECTED) A 08/08/21 11:43 08/08/21 Discharge Plan Discharge Patient Disposition: Home Clinical Impression: COVID-19 Condition: Stable Prescriptions: New Decadron 6 mg tablet 6 mg PO DAILY 7 Days Qty: 7 RF: 0 azithromycin 250 mg tablet See Rx Instructions .ROUTE .COMPLEX Qty: 6 RF: 0 No Action albuterol sulfate [ProAir HFA] 90 mcg/actuation HFA aerosol inhaler 2 puff inhalation Q6H PRN (Reason: shortness of breath or wheezing) Qty: 8.5 RF: 3 ondansetron HCl [Zofran] 4 mg Tablet 4 mg PO Q8H PRN (Reason: Nausea) Qty: 0 RF: 0 hydroxyzine pamoate 25 mg 25 mg PO QID PRN (Reason: Anxiety) RF: 0 lisinopril 20 mg Tablet 20 mg PO DAILY 30 Days Qty: 30 RF: 0 sertraline 100 mg Tablet 100 mg PO DAILY 30 Days Qty: 30 RF: 1 amitriptyline 25 mg Tablet 50 mg PO BEDTIME 30 Days Qty: 30 RF: 1 pantoprazole 40 mg Tablet,Delayed Release (Dr/Ec) 40 mg PO BID MDD see pharmacy comment Qty: 0 RF: 0 promethazine 25 mg Tablet 25 mg PO QID PRN (Reason: nausea) Qty: 0 RF: 0 pregabalin 75 mg Capsule 75 mg PO BID 30 Days Qty: 60 RF: 0 [employer] Thyroid 30 mg 30 mg PO DAILY 30 Days Qty: 30 RF: 1 Discharge Orders: Discharge ED (Routine); Ordered 08/10/21 Ordered By: Enrique Kimble Discharge Diet: Regular Discharge Activity: Increase activity as tolerated Patient Instructions: Viral Syndrome (ED), COVID-19 (Coronavirus Disease 2019) (ED) Activity Restrictions/Additional Instructions: Follow-up with medical provider as directed. Case management should be contacting you in the next several days set up an appointment for monoclonal antibody infusions. You can also call the [facility] Covid hotline [phone] to schedule your infusions as well. Take medications as prescribed. Return to the ER or your medical provider if condition worsens. Please read and understand discharge instructions. Thank you for choosing [facility] for your healthcare needs today. Please realize this is an emergency room and that we are providing you with a medical screening exam and this may not be complete and all inclusive of all the testing and or work up that you may need to determine your ailment or severity of your illness. It is very important that you follow up as instructed or that you return to the Emergency Department should you have concerns or if your condition changes or worsens in any way. Coding Level of Care Code ED Visual Basic .Net Developer for Urvashi Collins Exam Comprehensive
[2021-08-10 12:38] LABS: Basophils % 0.8 %; Eosinophils % 0.8 %; Hematocrit 33.8 % (37.0-47.0); Hemoglobin 10.8 g/dL (11.5-15.3); Lymphocytes # 0.4 10^3/uL (0.8-4.8); Lymphocytes % 8.4 %; Mean Corpuscular Hemoglobin 27.1 pg (28.0-34.0); Mean Corpuscular Volume 84.7 fl (81-99); Mean Platelet Volume 10.6 fL (7.4-10.4); Monocytes # 0.3 10^3/uL (0.2-0.9); Monocytes % 6.7 %; Neutrophils # 3.96 10^3/uL (1.8-7.7); Neutrophils % 82.9 %; Nucleated Red Blood Cells % 0 %; Platelet Count 165 10^3/cmm (130-400); Red Blood Count 3.99 10^6/uL (4.1-5.3); Red Cell Distribution Width 15.6 % (12.1-15.1); White Blood Count 4.8 10^3/uL (4.0-10.0)
[2021-08-10] MEDS: acetaminophen 500 mg Tablet 1000 MG PO (12:53)
[2021-08-10 12:57] LABS: D Dimer 1.12 ug/mIFEU (0-0.59)
[2021-08-10 13:01] LABS: Alanine Aminotransferase 11 U/L (0-33); Albumin Level 3.8 g/dL (3.5-5.2); Alkaline Phosphatase 102 IU/L (35-105); Anion Gap 19.5 (5-19); Aspartate Amino Transferase 17 U/L (0-32); Blood Urea Nitrogen 11 mg/dL (6-20); Calcium 8.2 mg/dL (8.5-10.5); Carbon Dioxide 17 mmol/L (22-29); Chloride 99 mmol/L (98-107); Globulin 2.7 g/dL (1.3-4.6); Glucose 84 mg/dL (65-115); Lactic Sepsis W/Reflex 0.7 mmol/L (0.5-2.2); Osmolality Calculated 271 mOsm/kg (285-295); Potassium 4.5 mmol/L (3.5-5.1); Sodium 131 mmol/L (136-145); Total Bilirubin 0.3 mg/dL (0.15-1.2); Total Protein 6.5 g/dL (6.6-8.7)
[2021-08-10 13:03] LABS: Troponin(5th) Baseline 9 ng/L (0-10)
[2021-08-10 14:16] VITALS: PULSE 79; RESP 14; O2SAT 97
[2021-08-10 14:24] VITALS: O2SAT 97
[2021-08-10] MEDS: dexamethasone 4 mg/mL INJ 8 MG IVP (14:48)
[2021-08-10] MEDS: sodium chloride 0.9% 1,000 ML 999 ML IV (14:49)
[2021-08-10 15:12] LABS: Troponin 5 2HR 8.81 ng/L (0-10)
[2021-08-10 15:14] LABS: Troponin 5 2HR Delta -0.19 ABS# (0-10)
[2021-08-10] MEDS: ipratropium-albuterol 3 mL Neb 6 ML INHALATION (16:01)
[2021-08-10 16:04] VITALS: PULSE 79; RESP 20; O2SAT 99
[2021-08-10 16:13] VITALS: PULSE 79; RESP 20; O2SAT 99
[2021-08-10 16:36] VITALS: PULSE 80; RESP 18; O2SAT 96
--- NOTE | 2021-08-11 13:14 | DCPLANNER ---
manager agricultural was asked to fax order for the MCA infusion to centralized scheduling. manager agricultural faxed order to scheduling, who will call patient with appointment information.
== END 2021-08-10 16:37 | disposition home or self-care (01) ==
PROVIDERS: Emergency Provider Physician Assistant
DX: U07.1 COVID-19 (principal); R79.1 Abnormal coagulation profile; Z87.891 Personal history of nicotine dependence; I10 Essential (primary) hypertension; K21.9 Gastro-esophageal reflux disease without esophagitis
CPT/HCPCS: 36415; 71045; 80053; 83605; 84484; 85025; 85378; 93005; 94640; 96361; 96374; 99284; J1100; J7030

== ENCOUNTER 2021-08-13 10:32 | Outpatient (CLI) | payer MEDICAID, SELFPAY ==
[2021-08-13 10:47] VITALS: BP 126/91; PULSE 76; RESP 19; TEMP 36.7; O2SAT 99; BMI 41.1
[2021-08-13 13:27] VITALS: BP 144/91; PULSE 59; RESP 19; TEMP 36.7; O2SAT 97
[2021-08-13 14:23] VITALS: BP 134/86; PULSE 63; RESP 19; TEMP 36.4; O2SAT 99
== END 2021-08-13 10:33 | disposition home or self-care (01) ==
LOC: OPS 10:33
PROVIDERS: Visit Provider Physician Assistant
DX: U07.1 COVID-19 (principal)
CPT/HCPCS: 96372

== ENCOUNTER 2021-10-31 08:47 | Emergency (ER) | payer MEDICAID, SELFPAY ==
[2021-10-31 08:57] VITALS: BP 110/68; PULSE 95; RESP 16; TEMP 36.3; O2SAT 98; BMI 43.4
--- NOTE | 2021-10-31 09:18 | W.ED.FALL ---
HPI - Fall General: Chief Complaint: Fall Stated Complaint: Fell, left side down to hip in alot of pain Time Seen by Provider: 10/31/21 08:49 Source: patient Mode of arrival: ambulatory Limitations: no limitations History of Present Illness: 51-year-old female who tripped and fell yesterday she was walking outside of her apartment building and stumbled in a hole. She fell on her left side, left hip pain left rib pain it progressively worsened throughout the day it is much worse this morning she has been weightbearing without difficulty she is able to breathe without difficulty but with deep inhalation has some discomfort she not strike her head there is no loss conscious no other injuries. MD complaint: fall Onset (ago): day(s) (1) Fall from: standing Fall witnessed: no Place fall occurred: home Loss of consciousness: None Prolonged down time: minute(s) (3) Symptoms prior to fall: none Context: tripped/slipped (Tripped in a hole outside at the apartment complex she is losing) Location of injury: chest Location of injury - extremities: Left: thigh (Hip) Severity: moderate Quality: sharp Associated symptoms-after fall: Reports difficulty walking (Able to bear weight); Denies abdominal pain, chest pain, confusion, headache(s), hematuria, lightheadedness, neck pain, numbness, short of breath, vertigo or weakness Review of Systems Const: Denies: fever(s), chills, body aches, change in appetite, fatigue or malaise ENMT: Denies: throat pain, ear or mastoid pain, nasal discharge or nasal congestion Card: Denies: chest pain or lightheadedness Resp: Denies: dyspnea, productive cough or non-productive cough GI: Denies: abdominal pain : Denies: hematuria Musc: Denies: neck pain Skin/Breast: Denies: rash or pruritus Neuro: Reports: difficulty walking (Able to bear weight); Denies: headache(s), vertigo or confusion PFSH ED PFSH: Medical History Asthma Chronic back pain COVID-19 Positive COVID test 08/08/2021. Depression, major, severe recurrence Fibromyalgia Gastritis GERD (gastroesophageal reflux disease) Hypertension Hypothyroidism Surgical History History of History of cholecystectomy History of surgery on arm Family History Other Cancer Social History Smoking and tobacco status: former smoker Alcohol intake: never Physical Exam Const: COMMON NORMALS: no acute distress GENERAL APPEARANCE: cooperative and comfortable ORIENTATION/CONSCIOUSNESS: Yes awake, Yes oriented to person, Yes oriented to place and Yes oriented to time HENMT: COMMON NORMALS: normocephalic, atraumatic and hearing grossly normal bilaterally HEAD & SCALP: normocephalic and atraumatic Eye: COMMON NORMALS: Equal, round and reactive pupils present, EOMs intact bilaterally, conjunctivae normal and no scleral icterus CONJUNCTIVA: Yes conjunctivae normal PUPIL: Yes Equal, round and reactive pupils present Neck/C-Spine: COMMON NORMALS: full ROM, no lymphadenopathy, supple and no JVD Resp: COMMON NORMALS: normal respiratory effort, No retractions, No use of accessory muscles and clear to auscultation bilaterally AUSCULTATION: clear to auscultation bilaterally Cardio: COMMON NORMALS: no JVD, regular rate, regular rhythm and No murmurs present (Cardio) RATE: regular rate RHYTHM: regular rhythm GI: COMMON NORMALS: Soft to palpation and No hepatosplenomegaly present AUSCULTATION: Yes normoactive bowel sounds PALPATION: Yes Soft to palpation, No Tenderness to palpation present (GI), No Guarding due to palpation present (GI) and Yes No hepatosplenomegaly present Extremity: COMMON NORMALS: normal to inspection, capillary refill normal, no clubbing, cyanosis or edema, no calf tenderness and no pedal edema Neuro: SENSORIUM/ORIENTATION: Yes oriented to person, Yes oriented to place and Yes oriented to time Skin: COMMON NORMALS: no rashes or lesions noted GENERAL SKIN EXAM: no rashes or lesions noted Course Vital Signs: Vital signs: Vital Signs Temperature 97.4 F L 10/31/21 08:57 Pulse Rate 90 10/31/21 09:19 Respiratory Rate 16 10/31/21 09:19 Blood Pressure 110/68 10/31/21 09:19 Pulse Oximetry 98 10/31/21 09:19 MDM - Fall Medical Decision Making Labs and imaging reviewed. Patient encouraged to drink more fluids no evidence of any fractures. Diclofenac as needed follow-up as needed Medical Records I reviewed the patient's medical records. Lab Data I reviewed the patient's lab results. : 10/31/21 10:07 10/31/21 10:07 Radiology Impressions Hip/Pelvis X-Ray 10/31/21 09:23 Impression: Negative left hip. Tonnis classification: grade 0: normal radiographs Ribs X-Ray 10/31/21 09:23 Impression: Negative chest with left rib detail. Laboratory Results WBC 5.2 10^3/uL (4.0-10.0) 10/31/21 10:07 RBC 4.37 10^6/uL (4.1-5.3) 10/31/21 10:07 Hgb 11.4 g/dL (11.5-15.3) L 10/31/21 10:07 Hct 37.3 % (37.0-47.0) 10/31/21 10:07 MCV 85.4 fl (81-99) 10/31/21 10:07 MCH 26.1 pg (28.0-34.0) L 10/31/21 10:07 MCHC 30.6 g/dL (30.0-36.0) 10/31/21 10:07 RDW 15.8 % (12.1-15.1) H 10/31/21 10:07 Plt Count 213 10^3/cmm (130-400) 10/31/21 10:07 MPV 10.0 fL (7.4-10.4) 10/31/21 10:07 Neut % (Auto) 74.3 % 10/31/21 10:07 Lymph % (Auto) 18.9 % 10/31/21 10:07 [place] % (Auto) 5.6 % 10/31/21 10:07 Eos % (Auto) 0.0 % 10/31/21 10:07 Baso % (Auto) 1.0 % 10/31/21 10:07 Neut # (Auto) 3.86 10^3/uL (1.8-7.7) 10/31/21 10:07 Lymph # (Auto) 1.0 10^3/uL (0.8-4.8) 10/31/21 10:07 [place] # (Auto) 0.3 10^3/uL (0.2-0.9) 10/31/21 10:07 Eos # (Auto) 0.0 10^3/uL (0.0-0.8) 10/31/21 10:07 Baso # (Auto) 0.1 10^3/uL (0.0-0.1) 10/31/21 10:07 Nucleated RBC % (auto) 0 % 10/31/21 10:07 Nucleated RBCs # 0.0 /100WBC 10/31/21 10:07 Sodium 137 mmol/L (136-145) 10/31/21 10:07 Potassium 3.6 mmol/L (3.5-5.1) 10/31/21 10:07 Chloride 107 mmol/L (98-107) 10/31/21 10:07 Carbon Dioxide 20 mmol/L (22-29) L 10/31/21 10:07 Anion Gap 13.6 (5-19) 10/31/21 10:07 BUN 28 mg/dL (6-20) H 10/31/21 10:07 Creatinine 1.4 mg/dL (0.5-0.9) H 10/31/21 10:07 GFR Calculation 39.5 mL/min (90-130) L 10/31/21 10:07 Glucose 88 mg/dL (65-115) 10/31/21 10:07 Calculated Osmolality 289 mOsm/kg (285-295) 10/31/21 10:07 Calcium 8.1 mg/dL (8.5-10.5) L 10/31/21 10:07 Total Bilirubin 0.2 mg/dL (0.15-1.2) 10/31/21 10:07 AST 8 U/L (0-32) 10/31/21 10:07 ALT < 5 U/L (0-33) 10/31/21 10:07 Alkaline Phosphatase 68 IU/L (35-105) 10/31/21 10:07 Total Protein 6.1 g/dL (6.6-8.7) L 10/31/21 10:07 Albumin 3.8 g/dL (3.5-5.2) 10/31/21 10:07 Globulin 2.3 g/dL (1.3-4.6) 10/31/21 10:07 Urine Color Yellow (Yellow) 10/31/21 09:40 Urine Appearance Clear (CLEAR) 10/31/21 09:40 Urine pH 5 (5-7) 10/31/21 09:40 Ur Specific [place] 1.025 (1.005-1.030) 10/31/21 09:40 Urine Protein 1+ (Negative) H 10/31/21 09:40 Urine Glucose (UA) Norm (Normal) 10/31/21 09:40 Urine Ketones Negative (Negative) 10/31/21 09:40 Urine Blood Neg (Negative) 10/31/21 09:40 Urine Nitrate Negative (Negative) 10/31/21 09:40 Urine Bilirubin 1+ (Negative) H 10/31/21 09:40 Urine Urobilinogen Norm mg/dL (Negative) 10/31/21 09:40 Ur Leukocyte Esterase Negative (Negative) 10/31/21 09:40 Urine RBC None /hpf (0-2) 10/31/21 09:40 Urine WBC 0-4 /hpf (0-5) H 10/31/21 09:40 Ur Squamous Epith Cells 25-40 /hpf (0-5) H 10/31/21 09:40 Amorphous Sediment Not Reportable 10/31/21 09:40 Urine Bacteria Trace /hpf (NONE) 10/31/21 09:40 Hyaline Casts 15-25 /lpf H 10/31/21 09:40 Urine Mucus Trace /hpf 10/31/21 09:40 Discharge Plan Discharge Patient Disposition: Home Clinical Impression: Fall Condition: Stable Prescriptions: New diclofenac sodium 75 mg tablet,delayed release (DR/EC) 75 mg PO Q12H PRN (Reason: pain) Qty: 20 0RF No Action albuterol sulfate [ProAir HFA] 90 mcg/actuation HFA aerosol inhaler 2 puff inhalation Q6H PRN (Reason: shortness of breath or wheezing) Qty: 8.5 3RF levofloxacin 750 mg tablet 750 mg PO Q24H 7 Days Qty: 7 0RF Flovent HFA 110 mcg/actuation HFA aerosol inhaler 1 puff inhalation Q12H 10 Days Qty: 12 0RF amoxicillin 875 mg tablet 875 mg PO BID 7 Days Qty: 14 0RF lisinopril 20 mg tablet 20 mg PO DAILY Qty: 30 0RF [place] Thyroid 30 mg 30 mg PO DAILY Qty: 30 1RF thyroid (pork) [[place] Thyroid] 30 mg tablet 30 mg PO DAILY Qty: 30 0RF ondansetron HCl [Zofran] 4 mg Tablet 4 mg PO Q8H PRN (Reason: Nausea) Qty: 0 0RF hydroxyzine pamoate 25 mg 25 mg PO QID PRN (Reason: Anxiety) 0RF sertraline 100 mg Tablet 100 mg PO DAILY 30 Days Qty: 30 1RF amitriptyline 25 mg Tablet 50 mg PO BEDTIME 30 Days Qty: 30 1RF pantoprazole 40 mg Tablet,Delayed Release (Dr/Ec) 40 mg PO BID MDD see pharmacy comment Qty: 0 0RF promethazine 25 mg Tablet 25 mg PO QID PRN (Reason: nausea) Qty: 0 0RF Discharge Orders: Discharge ED (Routine); Ordered 10/31/21 Ordered By: Nasir Mcdonald Discharge Diet: Usual diet Discharge Activity: Increase activity as tolerated Patient Instructions: Opioid Safety Coding Level of Care Code ED Retail Coordinator for Urvashi Fwd Exam Comprehensive
[2021-10-31 09:19] VITALS: BP 110/68; PULSE 90; RESP 16; O2SAT 98
--- NOTE | 2021-10-31 09:23 | XR_ITS ---
WS: [id number] Chest with left rib detail, 3 views, 10/31/2021 Clinical Data: pain Comparison: Portable chest, 08/10/2021. Findings: The lungs show no nodules, masses, or effusions. The heart is normal. No pneumonia or pneumothorax is seen. The ribs are intact. No rib fractures seen. No subcutaneous emphysema is present. There is an orthopedic plate in the left mid humerus. There are clips in the right upper quadrant fro m a cholecystectomy. XR/XR ribs LT mn 3V w CXR1V [id number] Impression: Negative chest with left rib detail.
--- NOTE | 2021-10-31 09:23 | XR_ITS ---
WS: [id number] Left hip, AP and frog-leg views, 10/31/2021 Clinical Data: pain Comparison: None. Findings: No fractures or dislocations are seen. The hip joint is intact. The soft tissues are not remarkable. The adjacent pelvis is normal. XR/XR hip LT 2-3V wo/w pel* [id number] Impression: Negative left hip. Tonnis classification: grade 0: normal radiographs
[2021-10-31 10:14] LABS: Basophils # 0.1 10^3/uL (0.0-0.1); Hematocrit 37.3 % (37.0-47.0); Hemoglobin 11.4 g/dL (11.5-15.3); Lymphocytes % 18.9 %; Mean Corpuscular HGB Conc 30.6 g/dL (30.0-36.0); Mean Corpuscular Hemoglobin 26.1 pg (28.0-34.0); Mean Corpuscular Volume 85.4 fl (81-99); Monocytes # 0.3 10^3/uL (0.2-0.9); Monocytes % 5.6 %; Neutrophils # 3.86 10^3/uL (1.8-7.7); Neutrophils % 74.3 %; Nucleated Red Blood Cells % 0 %; Platelet Count 213 10^3/cmm (130-400); Red Blood Count 4.37 10^6/uL (4.1-5.3); Red Cell Distribution Width 15.8 % (12.1-15.1); White Blood Count 5.2 10^3/uL (4.0-10.0)
[2021-10-31 10:18] LABS: Add Urine Microscopic? YES; Bilirubin Urine 1+ (Negative); Blood Urine Neg (Negative); Glucose Urine UA Norm (Normal); Ketones Urine Negative (Negative); Leukocyte Esterase Urine Negative (Negative); Nitrate Urine Negative (Negative); Protein Urine 1+ (Negative); Specific Gravity, Urine 1.025 (1.005-1.030); Urine Appearance Clear (CLEAR); Urine Color Yellow (Yellow); Urobilinogen Urine Norm (Negative); pH Urine 5 (5-7)
[2021-10-31 10:23] LABS: Add Urine Culture? No; Bacteria Urine TRACE /hpf; Hyaline Casts Urine 15-25 /lpf; Mucus Urine TRACE /hpf; Squamous Epithelial Cell Urine 25-40 /hpf (0-5); WBC Urine 0-4 /hpf (0-5)
[2021-10-31 10:39] LABS: Alanine Aminotransferase < 5 U/L (0-33); Albumin Level 3.8 g/dL (3.5-5.2); Alkaline Phosphatase 68 IU/L (35-105); Anion Gap 13.6 (5-19); Aspartate Amino Transferase 8 U/L (0-32); Blood Urea Nitrogen 28 mg/dL (6-20); Calcium 8.1 mg/dL (8.5-10.5); Carbon Dioxide 20 mmol/L (22-29); Chloride 107 mmol/L (98-107); Globulin 2.3 g/dL (1.3-4.6); Glomerular Filtration Rate 39.5 mL/min (90-130); Glucose 88 mg/dL (65-115); Osmolality Calculated 289 mOsm/kg (285-295); Potassium 3.6 mmol/L (3.5-5.1); Sodium 137 mmol/L (136-145); Total Bilirubin 0.2 mg/dL (0.15-1.2); Total Protein 6.1 g/dL (6.6-8.7)
[2021-10-31 10:48] VITALS: PULSE 88; RESP 16; O2SAT 98
== END 2021-10-31 10:40 | disposition home or self-care (01) ==
PROVIDERS: Emergency Provider Family Medicine
DX: M25.552 Pain in left hip (principal); R07.81 Pleurodynia; W01.0XXA Fall on same level from slipping, tripping and stumbling without subsequent striking against object, initial encounter; I10 Essential (primary) hypertension; Z87.891 Personal history of nicotine dependence
CPT/HCPCS: 71101; 73502; 80053; 81001; 85025; 99283

== ENCOUNTER 2021-11-30 14:08 | Emergency (ER) | payer MEDICAID, SELFPAY ==
[2021-11-30 14:33] VITALS: BP 154/99; PULSE 85; RESP 22; TEMP 36.9; O2SAT 98; BMI 39.4
--- NOTE | 2021-11-30 14:46 | XR_ITS ---
WS: [id number] XR lumbar spine 2-3V* [id number] REASON FOR EXAM: back pain with radiation FINDINGS: No significant compression deformity or focal lesion of the vertebral body. Mild narrowing of the L3-L4 disc space with moderate narrowing of the L4-L5 disc space. No spondylolysis or significant spondylolisthesis. Lumbar spine is unchanged compared to sagittal spinal reconstructions of the CT examination of the ab domen and pelvis 07/16/2021. XR/XR lumbar spine 2-3V* [id number] IMPRESSION: Stable lumbar spine with mild changes of degenerative spondylosis as above.
--- NOTE | 2021-11-30 15:16 | ED_ITS ---
HPI - Back Pain/Injury General: Chief Complaint: Back Pain/Injury Stated Complaint: BACK PAIN Time Seen by Provider: 11/30/21 15:02 Source: patient Mode of arrival: ambulatory Limitations: no limitations History of Present Illness: 51-year-old female presents to the ER today for worsening low back pain. Patient reports this has been going on for several days now however it is continuing to worsen. Patient reports last night she did something about 9 PM and since then the pain has been severe. Patient reports that is radiating down the left leg to the knee. Patient reports she was unable to sleep last night due to the pain and being unable to find a comfortable position. Patient is taking [id number] medications with no improvement. She has not had recent imaging done. She denies any loss of bowel or bladder control. Denies any numbness or tingling. Patient reports she has a history of sciatica but this does feel slightly different and worse. Patient has no known injury to cause this to worsen. Review of Systems General: Reports: 10 or more systems reviewed and unremarkable except in HPI and below PFSH ED PFSH: Medical History Asthma Chronic back pain COVID-19 Positive COVID test 08/08/2021. Depression, major, severe recurrence Fibromyalgia Gastritis GERD (gastroesophageal reflux disease) Hypertension Hypothyroidism Surgical History History of History of cholecystectomy History of surgery on arm Family History Other Cancer Social History Smoking and tobacco status: former smoker Alcohol intake: never Physical Exam Const: COMMON NORMALS: patient oriented x3, no limitations, healthy appearing and alert; apparent distress and negative for average body habitus (obese) Neck/C-Spine: COMMON NORMALS: full ROM Resp: COMMON NORMALS: normal respiratory effort and clear to auscultation bilaterally EFFORT & INSPECTION: Yes able to speak in complete sentences AUSCULTATION: clear to auscultation bilaterally Cardio: COMMON NORMALS: regular rate, regular rhythm and No murmurs present (Cardio) RATE: regular rate RHYTHM: regular rhythm GI: COMMON NORMALS: Normal to inspection, nondistended, normoactive bowel sounds present, Soft to palpation and non-tender PALPATION: Yes Soft to palpation Back/Pelvis: OTHER: Patient has tenderness over the lower L-spine and left SI joint. This does cause radiating pain down her left leg when palpated. No numbness or tingling noted. Extremity: COMMON NORMALS: normal to inspection and full ROM Neuro: COMMON NORMALS: patient oriented x3, moves all extremities and no senso ry deficits noted SENSORIUM/ORIENTATION: Yes alert Psych: COMMON NORMALS: mental status grossly normal, Normal thought process present, cooperative and normal affect THOUGHT PROCESS: Normal thought process present Skin: COMMON NORMALS: no rashes or lesions noted GENERAL SKIN EXAM: no rashes or lesions noted Course ED course: Patient presents to the ER today for acute low back pain. She has a history of chronic back pain however this is worsening over the last several days. Patient reports that it radiates on her left leg. Is mostly located on the left side. She denies any loss of bowel or bladder control. Denies any numbness or tingling. We will go ahead and get imaging as she has not had any recently. Vital Signs: Vital signs: Vital Signs Temperature 98.5 F 11/30/21 14:33 Pulse Rate 85 11/30/21 14:33 Respiratory Rate 22 H 11/30/21 14:33 Blood Pressure 154/99 11/30/21 14:33 Pulse Oximetry 98 11/30/21 14:33 MDM - Back Pain/Injury Medical Decision Making 51 yr old female patient presents to the ER today for acute low back pain. She has a history of chronic back pain however this is worsening over the last several days. Patient reports that it radiates on her left leg. Is mostly located on the left side. She denies any loss of bowel or bladder control. Denies any numbness or tingling. There is no known recent injury. X-ray was performed which shows some arthritic components however nothing acute noted. I discussed with patient these findings and that this is not the best exam for nerve impingements. We discussed that I can give her medication to help take the edge off the pain and hopefully lessen the sciatic flareup. If the pain continues beyond medication and that is not helping, she should follow-up with her PCP discuss MRI and further imaging. Patient has no neuro symptoms at this time so I do not feel an emergent MRI is necessary. We will treat with Medrol Dosepak, Robaxin, and ketorolac. Recommended warm moist heat pain with ice. Topical muscle rubs is recommended but do not use with heat or ice. Follow-up with PCP in 10 days if no improvement. Return to the ER if new or worsening symptoms. Patient verbalized understanding and is in agreement with treatment plan. Labs Radiology Impressions Lumbar Spine X-Ray 11/30/21 14:46 IMPRESSION: Stable lumbar spine with mild changes of degenerative spondylosis as above. Critical Care Time Critical Care Time: Critical Care Time: No Discharge Plan Discharge Patient Disposition: Home Clinical Impression: Acute left-sided low back pain with sciatica Qualifiers: Sciatica laterality: sciatica of left side Qualified Code(s): M54.42 - Lumbago with sciatica, left side Condition: Stable Prescriptions: New ketorolac 10 mg tablet 10 mg PO Q8H PRN (Reason: pain) 3 Days Qty: 12 0RF methocarbamol 750 mg tablet 750 mg PO Q8H Qty: 21 0RF Medrol ([place]) 4 mg tablets,dose pack See Rx Instructions .ROUTE .COMPLEX Qty: 21 0RF Rx Instructions: orally per package directions No Action albuterol sulfate [ProAir HFA] 90 mcg/actuation HFA aerosol inhaler 2 puff inhalation Q6H PRN (Reason: shortness of breath or wheezing) Qty: 8.5 3RF Flovent HFA 110 mcg/actuation HFA aerosol inhaler 1 puff inhalation Q12H 10 Days Qty: 12 0RF amitriptyline 50 mg tablet 50 mg PO DAILY Qty: 90 3RF lisinopril 20 mg tablet 20 mg PO DAILY Qty: 90 3RF pregabalin [Lyrica] 75 mg capsule 75 mg PO BID Qty: 60 5RF sertraline 100 mg tablet 100 mg PO DAILY 90 Days Qty: 90 3RF levothyroxine [Synthroid] 50 mcg tablet 50 mcg PO DAILY Qty: 90 3RF ondansetron HCl [Zofran] 4 mg Tablet 4 mg PO Q8H PRN (Reason: Nausea) Qty: 0 0RF hydroxyzine pamoate 25 mg 25 mg PO QID PRN (Reason: Anxiety) 0RF pantoprazole 40 mg Tablet,Delayed Release (Dr/Ec) 40 mg PO BID MDD see pharmacy comment Qty: 0 0RF promethazine 25 mg Tablet 25 mg PO QID PRN (Reason: nausea) Qty: 0 0RF diclofenac sodium 75 mg tablet,delayed release (DR/EC) 75 mg PO Q12H PRN (Reason: pain) Qty: 20 0RF Discharge Orders: Discharge ED (Routine); Ordered 11/30/21 Ordered By: Nicole Bird Referrals: Osvaldo Velasquez MD [Primary Care Provider] - Discharge Diet: Usual diet Discharge Activity: Increase activity as tolerated Patient Instructions: Sciatica (ED), Opioid Safety Activity Restrictions/Additional Instructions: Take Medrol Dosepak, Robaxin, and ketorolac as prescribed. Warm moist heat recommended. Topical muscle rub recommended but do not use with heat or ice. Stretching exercises recommended. Follow-up with PCP and in days if no improvement. Return to the ER with new or worsening symptoms. Coding Level of Care Code ED Collar Padder Blindstitch for Urvashi Collins
[2021-11-30] MEDS: ketorolac 60 mg/2 mL INJ IM (15:45)
[2021-11-30] MEDS: orphenadrine 30 mg/mL Inj 2 mL 60 MG IM (15:45)
[2021-11-30 16:16] VITALS: BP 141/84; PULSE 82; RESP 15; TEMP 37; O2SAT 98
== END 2021-11-30 16:10 | disposition home or self-care (01) ==
PROVIDERS: Emergency Provider Physician Assistant; PCP Internal Medicine
DX: M54.42 Lumbago with sciatica, left side (principal); I10 Essential (primary) hypertension; E03.9 Hypothyroidism, unspecified; Z87.891 Personal history of nicotine dependence
CPT/HCPCS: 72100; 96372; 99283; J1885; J2360

== ENCOUNTER 2021-12-10 15:26 | Emergency (ER) | payer MEDICAID, SELFPAY ==
[2021-12-10 15:28] VITALS: BP 89/62; PULSE 84; RESP 18; TEMP 36.3; O2SAT 99; BMI 42.9
--- NOTE | 2021-12-10 15:44 | ECG_ITS ---
[facility] Test Date: 2021-12-10 Pat Name: Mee Wolfe Department: Room: Gender: Female Flow Coordinator: : 1970 Requested By: Dylan Dunn Order Number: [id number] MD: Mimi May M.D. Measurements Intervals [place] Rate: 71 P: 58 [place]: 176 QRS: -53 QRSD: 115 T: 40 QT: 401 QTc: 437 Interpretive Statements SINUS RHYTHM LOW QRS VOLTAGE IN PRECORDIAL LEADS [QRS DEFLECTION < 1.0 mV IN CHEST LEADS] LEFT ANTERIOR FASCICULAR BLOCK [QRS AXIS <= -45, QR IN I, RS IN II] PROBABLE ANTEROLATERAL MYOCARDIAL INFARCTION , OF INDETERMINATE AGE [35 ms Q WAVE IN I/aVL/V3-V6] Compared to ECG 08/10/2021 12:26:07 Low QRS voltage now present Left anterior fascicular block now present Left-axis deviation no longer present Myocardial infarct finding still present Electronically Signed On 12-11-2021 7:26:24 CDT by Mimi May M.D. [email or web address]
[2021-12-10 15:54] LABS: Basophils # 0.1 10^3/uL (0.0-0.1); Hematocrit 38.1 % (37.0-47.0); Hemoglobin 11.5 g/dL (11.5-15.3); Lymphocytes # 2.1 10^3/uL (0.8-4.8); Lymphocytes % 25.6 %; Mean Corpuscular HGB Conc 30.2 g/dL (30.0-36.0); Mean Corpuscular Hemoglobin 25.7 pg (28.0-34.0); Mean Platelet Volume 9.6 fL (7.4-10.4); Monocytes # 0.4 10^3/uL (0.2-0.9); Monocytes % 5.1 %; Neutrophils # 5.49 10^3/uL (1.8-7.7); Neutrophils % 67.8 %; Nucleated Red Blood Cells % 0 %; Platelet Count 360 10^3/cmm (130-400); Red Blood Count 4.48 10^6/uL (4.1-5.3); Red Cell Distribution Width 16.1 % (12.1-15.1); White Blood Count 8.1 10^3/uL (4.0-10.0)
[2021-12-10 15:57] LABS: Glucose Point of Care 116 mg/dL (70-110)
[2021-12-10] MEDS: sodium chloride 0.9% 1,000 ML 999 ML IV ×2 (16:00→17:31)
--- NOTE | 2021-12-10 16:09 | ED_ITS ---
HPI - Dizziness General: Chief Complaint: Dizziness Stated Complaint: low BP Time Seen by Provider: 12/10/21 15:43 PFSH ED PFSH: Medical History Asthma Chronic back pain COVID-19 Positive COVID test 08/08/2021. Depression, major, severe recurrence Fibromyalgia Gastritis GERD (gastroesophageal reflux disease) Hypertension Hypothyroidism Surgical History History of History of cholecystectomy History of surgery on arm Family History Other Cancer Social History Smoking and tobacco status: former smoker Alcohol intake: never Course Vital Signs: Vital signs: Vital Signs Temperature 97.4 F L 12/10/21 15:28 Pulse Rate 84 12/10/21 15:28 Respiratory Rate 18 12/10/21 15:28 Blood Pressure 89/62 12/10/21 15:28 Pulse Oximetry 99 12/10/21 15:28 MDM - Dizziness Lab Data : 12/10/21 15:37 12/10/21 15:37 Laboratory Results WBC 8.1 10^3/uL (4.0-10.0) 12/10/21 15:37 RBC 4.48 10^6/uL (4.1-5.3) 12/10/21 15:37 Hgb 11.5 g/dL (11.5-15.3) 12/10/21 15:37 Hct 38.1 % (37.0-47.0) 12/10/21 15:37 MCV 85.0 fl (81-99) 12/10/21 15:37 MCH 25.7 pg (28.0-34.0) L 12/10/21 15:37 MCHC 30.2 g/dL (30.0-36.0) 12/10/21 15:37 RDW 16.1 % (12.1-15.1) H 12/10/21 15:37 Plt Count 360 10^3/cmm (130-400) 12/10/21 15:37 MPV 9.6 fL (7.4-10.4) 12/10/21 15:37 Neut % (Auto) 67.8 % 12/10/21 15:37 Lymph % (Auto) 25.6 % 12/10/21 15:37 [place] % (Auto) 5.1 % 12/10/21 15:37 Eos % (Auto) 0.0 % 12/10/21 15:37 Baso % (Auto) 1.0 % 12/10/21 15:37 Neut # (Auto) 5.49 10^3/uL (1.8-7.7) 12/10/21 15:37 Lymph # (Auto) 2.1 10^3/uL (0.8-4.8) 12/10/21 15:37 [place] # (Auto) 0.4 10^3/uL (0.2-0.9) 12/10/21 15:37 Eos # (Auto) 0.0 10^3/uL (0.0-0.8) 12/10/21 15:37 Baso # (Auto) 0.1 10^3/uL (0.0-0.1) 12/10/21 15:37 Nucleated RBC % (auto) 0 % 12/10/21 15:37 Nucleated RBCs # 0.0 /100WBC 12/10/21 15:37 POC Glucose 116 mg/dL (70-110) H 12/10/21 15:53 Discharge Plan Discharge Condition: Stable Prescriptions: No Action albuterol sulfate [ProAir HFA] 90 mcg/actuation HFA aerosol inhaler 2 puff inhalation Q6H PRN (Reason: shortness of breath or wheezing) Qty: 8.5 3RF Flovent HFA 110 mcg/actuation HFA aerosol inhaler 1 puff inhalation Q12H 10 Days Qty: 12 0RF methocarbamol 750 mg tablet 750 mg PO Q8H 0RF amitriptyline 50 mg tablet 50 mg PO DAILY Qty: 90 3RF lisinopril 20 mg tablet 20 mg PO DAILY Qty: 90 3RF pregabalin [Lyrica] 75 mg capsule 75 mg PO BID Qty: 60 5RF sertraline 100 mg tablet 100 mg PO DAILY 90 Days Qty: 90 3RF levothyroxine [Synthroid] 50 mcg tablet 50 mcg PO DAILY Qty: 90 3RF pantoprazole 40 mg tablet,delayed release (DR/EC) 40 mg PO BID MDD see pharmacy comment Qty: 90 3RF ondansetron HCl [Zofran] 4 mg Tablet 4 mg PO Q8H PRN (Reason: Nausea) Qty: 0 0RF hydroxyzine pamoate 25 mg 25 mg PO QID PRN (Reason: Anxiety) 0RF promethazine 25 mg Tablet 25 mg PO QID PRN (Reason: nausea) Qty: 0 0RF diclofenac sodium 75 mg tablet,delayed release (DR/EC) 75 mg PO Q12H PRN (Reason: pain) Qty: 20 0RF methocarbamol 750 mg tablet 750 mg PO Q8H Qty: 21 0RF Referrals: Osvaldo Velasquez MD [Primary Care Provider] - Coding Level of Care Code ED Mail Handlers Supervisor for Urvashi Collins
--- NOTE | 2021-12-10 16:10 | ED_ITS ---
HPI - General Adult General: Chief complaint: Dizziness Stated complaint: low BP Time Seen by Provider: 12/10/21 15:43 History of Present Illness: Patient is a 51-year-old female who presented to the emergency room for concerns of altered mental status and low blood pressure after receiving hip injection from Dr. Velasquez. Patient was seen earlier today in clinic underwent injection of steroid and bupivacaine into the left hip shortly after procedure, patient became altered and had low blood pressure. Patient was then brought to the emergency room for assessment. I discussed case with the clinically tells me the patient received 80 mg of bupivacaine and steroid injection into the left hip. Patient on arrival, is AAOx3, mildly sleeping but easily awakable to voice, blood pressure of 95/50 without any focal complaints at this time. Onset: 2:30pm Duration:ongoing Location:hospital Severity:moderate Associated symptoms: Reports malaise; Deny chest pain, dyspnea, nausea, rash, palpitations or vomiting Review of Systems Const: Reports: body aches, malaise and other (+generalized weakness); Denies: fever(s) or chills Eyes: Denies: change in vision ENMT: Denies: mouth pain Card: Denies: chest pain or palpitations Resp: Denies: dyspnea or non-productive cough GI: Denies: abdominal pain, nausea, vomiting or diarrhea : Denies: dysuria Musc: Denies: extremity pain Skin/Breast: Denies: rash or new lesions Neuro: Reports: other (+sleeping); Denies: weakness in extremities Psych: Reports: other (Normal mood) Alberto/Lymph: Denies: easy bruising PFSH ED PFSH: Medical History Asthma Chronic back pain COVID-19 Positive COVID test 08/08/2021. Depression, major, severe recurrence Fibromyalgia Gastritis GERD (gastroesophageal reflux disease) Hypertension Hypothyroidism Surgical History History of History of cholecystectomy History of surgery on arm Family History Other Cancer Social History Smoking and tobacco status: former smoker Alcohol intake: never Physical Exam Const: COMMON NORMALS: alert HENMT: COMMON NORMALS: atraumatic HEAD & SCALP: atraumatic MOUTH: moist mucous membranes not abnormal Eye: COMMON NORMALS: EOMs intact bilaterally and conjunctivae normal CONJUNCTIVA: Yes conjunctivae normal Neck/C-Spine: COMMON NORMALS: full ROM and supple Resp: COMMON NORMALS: normal respiratory effort and clear to auscultation bilaterally AUSCULTATION: clear to auscultation bilaterally Cardio: COMMON NORMALS: regular rate RATE: regular rate GI: COMMON NORMALS: Soft to palpation and non-tender PALPATION: Yes Soft to palpation Extremity: COMMON NORMALS: full ROM Neuro: SENSORIUM/ORIENTATION: Yes alert MOTOR EXAM: No Abnormal motor strength present and Other motor observations present (no focal motor deficits) OTHER: GCS 15, mildly somnolent at baseline, easily arousable to voice, no gross strength weakness, cranial nerves II through XII grossly intact Psych: COMMON NORMALS: speech normal SPEECH: Yes normal speech MOOD & AFFECT: Yes euthymic mood Course Vital Signs: Vital signs: Vital Signs Temperature 97.9 F 12/10/21 19:42 Pulse Rate 72 12/10/21 19:42 Respiratory Rate 16 12/10/21 19:42 Blood Pressure 156/93 12/10/21 19:42 Pulse Oximetry 99 12/10/21 19:42 MDM - General Adult Medical Decision Making 51-year-old female with history of asthma, chronic COVID, fibromyalgia hypothyroidism presenting to the emergency room for concerns of altered mental status and low blood pressure after receiving a hip injection from clinic. On arrival, patient noted to have blood pressure 95/50. Patient is mildly somnolent but easily wakeful to voice. GCS 15 currently. Creatinine 1.3 similar to baseline. Rest of lab within normal limit. Patient received 2L fluid is now AAOx3 awake and answering question. Patient able to tolerate p.o. and ambulate without difficulty. Patient reports earlier she has had some headache from with vertigo-like sensation shortly after getting the injection. CTA head and neck negative for any large vessel occlusion or basilar dissection or infarction. CT brain negative for any acute finding. At the present time, do not suspect any pathology. I believe the patient may have had vasovagal syncope earlier today shortly after the injection. Troponin x2 with delta less than 5. EKG is nonischemic. No suspicion for ACS currently. Patient had no shortness of breath, tachycardia, hypoxemia, pleuritic chest pain, leg swelling -I do not suspect the source of syncope is related to pulmonary embolism. Do not suspect aortic pathologies either including dissec tion and aortic aneurysm. Disposition: Discharge. Patient counseled regarding diagnostic impression, treatment plan. Patient given ED strict return precautions to return for continuation, worsening, or development of new symptoms. Instructed to f/u w/ PCP regarding symptoms today. Patient verbalized understanding. Lab Data : 12/10/21 15:37 12/10/21 15:[address] 12/10/21 17:55 IMPRESSION: No acute intracranial abnormality. Head/Neck CTA 12/10/21 17:55 IMPRESSION: 1. No large artery occlusion or stenosis. IMPRESSION: 1. No large artery occlusion, stenosis, or dissection. REFERENCES: NASCET CRITERIA. The degree of internal carotid artery stenosis is based on NASCET criteria. Normal is no stenosis. Mild is less than 50% stenosis. Moderate is 50-69% stenosis. Severe is 70% to 99% stenosis. Total occlusion is no detectable patent lumen. Laboratory Results WBC 8.1 10^3/uL (4.0-10.0) 12/10/21 15:37 RBC 4.48 10^6/uL (4.1-5.3) 12/10/21 15:37 Hgb 11.5 g/dL (11.5-15.3) 12/10/21 15:37 Hct 38.1 % (37.0-47.0) 12/10/21 15:37 MCV 85.0 fl (81-99) 12/10/21 15:37 MCH 25.7 pg (28.0-34.0) L 12/10/21 15:37 MCHC 30.2 g/dL (30.0-36.0) 12/10/21 15:37 RDW 16.1 % (12.1-15.1) H 12/10/21 15:37 Plt Count 360 10^3/cmm (130-400) 12/10/21 15:37 MPV 9.6 fL (7.4-10.4) 12/10/21 15:37 Neut % (Auto) 67.8 % 12/10/21 15:37 Lymph % (Auto) 25.6 % 12/10/21 15:37 Curry % (Auto) 5.1 % 12/10/21 15:37 Eos % (Auto) 0.0 % 12/10/21 15:37 Baso % (Auto) 1.0 % 12/10/21 15:37 Neut # (Auto) 5.49 10^3/uL (1.8-7.7) 12/10/21 15:37 Lymph # (Auto) 2.1 10^3/uL (0.8-4.8) 12/10/21 15:37 Curry # (Auto) 0.4 10^3/uL (0.2-0.9) 12/10/21 15:37 Eos # (Auto) 0.0 10^3/uL (0.0-0.8) 12/10/21 15:37 Baso # (Auto) 0.1 10^3/uL (0.0-0.1) 12/10/21 15:37 Nucleated RBC % (auto) 0 % 12/10/21 15:37 Nucleated RBCs # 0.0 /100WBC 12/10/21 15:37 Sodium 138 mmol/L (136-145) 12/10/21 15:37 Potassium 4.7 mmol/L (3.5-5.1) 12/10/21 15:37 Chloride 100 mmol/L (98-107) 12/10/21 15:37 Carbon Dioxide 25 mmol/L (22-29) 12/10/21 15:37 Anion Gap 17.7 (5-19) 12/10/21 15:37 BUN 23 mg/dL (6-20) H 12/10/21 15:37 Creatinine 1.3 mg/dL (0.5-0.9) H 12/10/21 15:37 GFR Calculation 43.0 mL/min (90-130) L 12/10/21 15:37 Glucose 86 mg/dL (65-115) 12/10/21 15:37 POC Glucose 116 mg/dL (70-110) H 12/10/21 15:53 Calculated Osmolality 289 mOsm/kg (285-295) 12/10/21 15:37 Calcium 8.6 mg/dL (8.5-10.5) 12/10/21 15:37 Total Bilirubin 0.2 mg/dL (0.15-1.2) 12/10/21 15:37 AST 22 U/L (0-32) 12/10/21 15:37 ALT 9 U/L (0-33) 12/10/21 15:37 Alkaline Phosphatase 126 IU/L (35-105) H 12/10/21 15:37 Troponin T Baseline 11 ng/L (0-10) H 12/10/21 15:37 Troponin T 120 Minute 6.34 ng/L (0-10) 12/10/21 18:30 Delta Troponin T -4.66 ABS# (0-10) L 12/10/21 18:30 Total Protein 7.0 g/dL (6.6-8.7) 12/10/21 15:37 Albumin 4.2 g/dL (3.5-5.2) 12/10/21 15:37 Globulin 2.8 g/dL (1.3-4.6) 12/10/21 15:37 Lipase 61 U/L (13-60) H 12/10/21 15:37 Imaging Data Other Imaging: Radiologist's impression: [address] [place] [address] CT Scan Report Signed Patient: Mee Wolfe Unit #: [id number] : 1970 Age/Sex: 51 / F ADM Date: 12/10/21 Loc: ER Room/Bed: Attending Dr: Ordering Provider/Ordering MD: Dylan Dunn MD Date of Service: 12/10/21 Procedure(s): CT angio headneck* [id number] Accession Number(s): [id number] Report Number: [id number] PROCEDURE INFORMATION: Exam: CT Angiography Head With Contrast, Arteriography Exam date and time: 12/10/2021 6:14 PM Age: 51 years old Clinical indication: Other: Hypotension; Additional info: Eval for dissection or basilar issues TECHNIQUE: Imaging protocol: Computed tomography angiography of the head with contrast. Exam focused on the arteries. 3D rendering (Not supervised by radiologist): MIP and/or 3D reconstructed images were created by the technologist. Radiation optimization: All CT scans at this facility use at least one of these dose optimization techniques: automated exposure control; mA and/or kV adjustment per patient size (includes targeted exams where dose is matched to clinical indication); or iterative reconstruction. Contrast material: VISI; Contrast volume: 75 ml; Contrast route: INTRAVENOUS (IV);? COMPARISON: 1. CT head wo con* [id number] 12/10/2021 6:11 PM 2. CR XR ribs LT mn 3V w CXR1V [id number] 10/31/2021 9:47 AM RADIATION DOSE METRICS: Total DLP (mGy-cm): 2363.99 FINDINGS: ANTERIOR CIRCULATION: Right internal carotid artery: Mild calcified plaque in the cavernous right internal carotid artery without stenosis. Right middle cerebral artery: Unremarkable. No occlusion or significant stenosis. No aneurysm.? Right anterior cerebral artery: Unremarkable. No occlusion or significant stenosis. No aneurysm.? Left internal carotid artery: Mild calcified plaque in the cavernous left internal carotid artery without stenosis. Left middle cerebral artery: Unremarkable. No occlusion or significant stenosis. No aneurysm.? Left anterior cerebral artery: Unremarkable. No occlusion or significant stenosis. No aneurysm.? POSTERIOR CIRCULATION: Right vertebral artery: Unremarkable. No occlusion or significant stenosis. No aneurysm.? Left vertebral artery: Unremarkable. No occlusion or significant stenosis. No aneurysm.? Basilar artery: Unremarkable. No occlusion or significant stenosis. No aneurysm. Right posterior cerebral artery: Unremarkable. No occlusion or significant stenosis. No aneurysm.? Left posterior cerebral artery: The left posterior cerebral artery is widely patent without stenosis. Small left posterior communicating artery branch. Brain: The anterior portion of the brain and calvarium is excluded from the images. The visualized portions of the brain are unremarkable. No abnormal attenuation or enhancement. Cerebral ventricles: No ventriculomegaly. Bones/joints: Unremarkable. No acute fracture. Soft tissues: Unremarkable. PROCEDURE INFORMATION: Exam: CT Angiography Neck With Contrast Exam date and time: 12/10/2021 6:14 PM Age: 51 years old Clinical indication: Other: Hypotension; Additional info: Eval for dissection or basilar issues TECHNIQUE: Imaging protocol: Computed tomography angiography of the neck with contrast. 3D rendering (Not supervised by radiologist): MIP and/or 3D reconstructed images were created by the technologist. Radiation optimization: All CT scans at this facility use at least one of these dose optimization techniques: automated exposure control; mA and/or kV adjustment per patient size (includes targeted exams where dose is matched to clinical indication); or iterative reconstruction. Contrast material: VISI; Contrast volume: 75 ml; Contrast route: INTRAVENOUS (IV);? COMPARISON: 1. CT head wo con* [id number] 12/10/2021 6:11 PM 2. CR XR ribs LT mn 3V w CXR1V [id number] 10/31/2021 9:47 AM RADIATION DOSE METRICS: Total DLP (mGy-cm): 2363.99 FINDINGS: Right common carotid artery: No stenosis. No dissection or occlusion. Right internal carotid artery: No stenosis of the extracranial segment. No dissection or occlusion. Right external carotid artery: No occlusion or stenosis of the origin.? Left common carotid artery: The left common carotid artery and innominate artery share a common trunk. No stenosis. Left internal carotid artery: No stenosis of the extracranial segment. No dissection or occlusion. Left external carotid artery: No occlusion or stenosis of the origin.? Right vertebral artery: No stenosis. No dissection or occlusion. Left vertebral artery: No stenosis. No dissection or occlusion. Soft tissues: Normal. No significant soft tissue swelling. Bones/joints: No acute fracture. CT/CT angio headneck* [id number] IMPRESSION: 1. No large artery occlusion or stenosis. ? IMPRESSION: 1. No large artery occlusion, stenosis, or dissection. ? REFERENCES: NASCET CRITERIA. The degree of internal carotid artery stenosis is based on NASCET criteria. Normal is no stenosis. Mild is less than 50% stenosis. Moderate is 50-69% stenosis. Severe is 70% to 99% stenosis. Total occlusion is no detectable patent lumen. ? Dictated By: Aftab Engel Signed By: Aftab Engel Signed Date/Time: 12/10/21 1850 DD/ [address] [address] [address] Scan Report Signed Patient: Mee Wolfe Unit #: [id number] : 1970 Age/Sex: 51 / F ADM Date: 12/10/21 Loc: ER Room/Bed: Attending Dr: Ordering Provider/Ordering MD: Dylan Dunn MD Date of Service: 12/10/21 Procedure(s): CT head wo con* [id number] Accession Number(s): [id number] Report Number: [id number] PROCEDURE INFORMATION: Exam: CT Head Without Contrast Exam date and time: 12/10/2021 6:11 PM Age: 51 years old Clinical indication: Altered mental status/memory loss; Additional info: AMS TECHNIQUE: Imaging protocol: Computed tomography of the head without contrast. Radiation optimization: All CT scans at this facility use at least one of these dose optimization techniques: automated exposure control; mA and/or kV adjustment per patient size (includes targeted exams where dose is matched to clinical indication); or iterative reconstruction. COMPARISON: No relevant prior studies available. RADIATION DOSE METRICS: Total DLP (mGy-cm): 870.62 FINDINGS: Brain: Normal. No hemorrhage. Unremarkable white matter. No mass effect. Cerebral ventricles: No ventriculomegaly. Paranasal sinuses: Visualized sinuses are unremarkable. No fluid levels. Mastoid air cells: Visualized mastoid air cells are well aerated. Bones/joints: Unremarkable. No acute fracture. Soft tissues: Unremarkable. CT/CT head wo con* [id number] IMPRESSION: No acute intracranial abnormality. ? Dictated By: Ambar Barrios Signed By: Ambar Barrios Signed Date/Time: 12/10/211842 DD/ 10 Discharge Plan Discharge Patient Disposition: Home Clinical Impression: Hypotension, Light headedness Condition: Stable Prescriptions: No Action albuterol sulfate [ProAir HFA] 90 mcg/actuation HFA aerosol inhaler 2 puff inhalation Q6H PRN (Reason: shortness of breath or wheezing) Qty: 8.5 3RF Flovent HFA 110 mcg/actuation HFA aerosol inhaler 1 puff inhalation Q12H 10 Days Qty: 12 0RF pregabalin [Lyrica] 75 mg capsule 75 mg PO BID Qty: 60 5RF pantoprazole 40 mg tablet,delayed release (DR/EC) 40 mg PO BID Qty: 90 3RF promethazine 25 mg Tablet 25 mg PO QID PRN (Reason: nausea) Qty: 0 0RF methocarbamol 750 mg tablet 750 mg PO Q8H Qty: 21 0RF ondansetron HCl 4 mg tablet 4 mg PO Q8H PRN (Reason: Nausea And Vomiting) 0RF Vitamin D3 25 mcg (1,000 unit) Capsule 25 mcg PO DAILY 0RF Abwfke-Qtply-EPB (with antiox) 500-500-66.7 mg Tablet 1 tab PO BID 0RF amitriptyline 50 mg tablet 50 mg PO BEDTIME 0RF Synthroid 50 mcg tablet 50 mcg PO QAM 0RF lisinopril 20 mg tablet 20 mg PO BEDTIME 0RF sertraline 100 mg tablet 100 mg PO BEDTIME 0RF Discharge Orders: Discharge ED (Routine); Ordered 12/10/21 Ordered By: Dylan Dunn Referrals: Osvaldo Velasquez MD [Primary Care Provider] - Discharge Diet: Advance as tolerated Discharge Activity: Increase activity as tolerated Patient Instructions: Hypotension (ED), Lightheadedness (ED) Activity Restrictions/Additional Instructions: Please come back to the emergency room for any more breakthrough episodes of p assing out or feeling light-headed. Come back if any weakness in her arms, drooling, difficulty speaking, any neurological symptoms, chest pain/shortness of breath/palpitation or any new or concerning issues. Please do not swim, bathe, operate heavy machinery or drive a vehicle unattended. 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
[2021-12-10 16:21] LABS: Alanine Aminotransferase 9 U/L (0-33); Albumin Level 4.2 g/dL (3.5-5.2); Alkaline Phosphatase 126 IU/L (35-105); Aspartate Amino Transferase 22 U/L (0-32); Carbon Dioxide 25 mmol/L (22-29); Chloride 100 mmol/L (98-107); Globulin 2.8 g/dL (1.3-4.6); Glucose 86 mg/dL (65-115); Lipase 61 U/L (13-60); Sodium 138 mmol/L (136-145); Total Bilirubin 0.2 mg/dL (0.15-1.2)
[2021-12-10 16:37] VITALS: BP 104/58; PULSE 69; RESP 13; O2SAT 100
[2021-12-10 16:41] LABS: Blood Urea Nitrogen 23 mg/dL (6-20); Calcium 8.6 mg/dL (8.5-10.5); Osmolality Calculated 289 mOsm/kg (285-295)
[2021-12-10 16:44] LABS: Anion Gap 17.7 (5-19); Potassium 4.7 mmol/L (3.5-5.1)
--- NOTE | 2021-12-10 16:50 | ECG_ITS ---
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 Measurements Intervals Salley Rate: 64 P: 65 VT: 194 QRS: -47 QRSD: 115 T: 44 QT: 419 QTc: 434 Interpretive Statements SINUS RHYTHM LOW QRS VOLTAGE IN PRECORDIAL LEADS [QRS DEFLECTION < 1.0 mV IN CHEST LEADS] LEFT ANTERIOR FASCICULAR BLOCK [QRS AXIS <= -45, QR IN I, RS IN II] PROBABLE ANTEROLATERAL MYOCARDIAL INFARCTION , OF INDETERMINATE AGE [35 ms Q WAVE IN I/aVL/V3-V6] Compared to ECG 12/10/2021 15:52:34 No significant changes Electronically Signed On 12-11-2021 7:24:13 CDT by Mimi May M.D. [id number]
[2021-12-10 17:37] LABS: Troponin(5th) Baseline 11 ng/L (0-10)
--- NOTE | 2021-12-10 17:55 | CTR_ITS ---
PROCEDURE INFORMATION: Exam: CT Head Without Contrast Exam date and time: 12/10/2021 6:11 PM Age: 51 years old Clinical indication: Altered mental status/memory loss; Additional info: AMS TECHNIQUE: Imaging protocol: Computed tomography of the head without contrast. Radiation optimization: All CT scans at this facility use at least one of these dose optimization techniques: automated exposure control; mA and/or kV adjustment per patient size (includes targeted exams where dose is matched to clinical indication); or iterative reconstruction. COMPARISON: No relevant prior studies available. RADIATION DOSE METRICS: Total DLP (mGy-cm): 870.62 FINDINGS: Brain: Normal. No hemorrhage. Unremarkable white matter. No mass effect. Cerebral ventricles: No ventriculomegaly. Paranasal sinuses: Visualized sinuses are unremarkable. No fluid levels. Mastoid air cells: Visualized mastoid air cells are well aerated. Bones/joints: Unremarkable. No acute fracture. Soft tissues: Unremarkable. CT/CT head wo con* [id number] IMPRESSION: No acute intracranial abnormality.
--- NOTE | 2021-12-10 17:55 | CTR_ITS ---
PROCEDURE INFORMATION: Exam: CT Angiography Head With Contrast, Arteriography Exam date and time: 12/10/2021 6:14 PM Age: 51 years old Clinical indication: Other: Hypotension; Additional info: Eval for dissection or basilar issues TECHNIQUE: Imaging protocol: Computed tomography angiography of the head with contrast. Exam focused on the arteries. 3D rendering (Not supervised by radiologist): MIP and/or 3D reconstructed images were created by the technologist. Radiation optimization: All CT scans at this facility use at least one of these dose optimization techniques: automated exposure control; mA and/or kV adjustment per patient size (includes targeted exams where dose is matched to clinical indication); or iterative reconstruction. Contrast material: VISI; Contrast volume: 75 ml; Contrast route: INTRAVENOUS (IV); COMPARISON: 1. CT head wo con* [id number] 12/10/2021 6:11 PM 2. CR XR ribs LT mn 3V w CXR1V [id number] 10/31/2021 9:47 AM RADIATION DOSE METRICS: Total DLP (mGy-cm): 2363.99 FINDINGS: ANTERIOR CIRCULATION: Right internal carotid artery: Mild calcified plaque in the cavernous right internal carotid artery without stenosis. Right middle cerebral artery: Unremarkable. No occlusion or significant stenosis. No aneurysm. Right anterior cerebral artery: Unremarkable. No occlusion or significant stenosis. No aneurysm. Left internal carotid artery: Mild calcified plaque in the cavernous left internal carotid artery without stenosis. Left middle cerebral artery: Unremarkable. No occlusion or significant stenosis. No aneurysm. Left anterior cerebral artery: Unremarkable. No occlusion or significant stenosis. No aneurysm. POSTERIOR CIRCULATION: Right vertebral artery: Unremarkable. No occlusion or significant stenosis. No aneurysm. Left vertebral artery: Unremarkable. No occlusion or significant stenosis. No aneurysm. Basilar artery: Unremarkable. No occlusion or significant stenosis. No aneurysm. Right posterior cerebral artery: Unremarkable. No occlusion or significant stenosis. No aneurysm. Left posterior cerebral artery: The left posterior cerebral artery is widely patent without stenosis. Small left posterior communicating artery branch. Brain: The anterior portion of the brain and calvarium is excluded from the images. The visualized portions of the brain are unremarkable. No abnormal attenuation or enhancement. Cerebral ventricles: No ventriculomegaly. Bones/joints: Unremarkable. No acute fracture. Soft tissues: Unremarkable. PROCEDURE INFORMATION: Exam: CT Angiography Neck With Contrast Exam date and time: 12/10/2021 6:14 PM Age: 51 years old Clinical indication: Other: Hypotension; Additional info: Eval for dissection or basilar issues TECHNIQUE: Imaging protocol: Computed tomography angiography of the neck with contrast. 3D rendering (Not supervised by radiologist): MIP and/or 3D reconstructed images were created by the technologist. Radiation optimization: All CT scans at this facility use at least one of these dose optimization techniques: automated exposure control; mA and/or kV adjustment per patient size (includes targeted exams where dose is matched to clinical indication); or iterative reconstruction. Contrast material: VISI; Contrast volume: 75 ml; Contrast route: INTRAVENOUS (IV); COMPARISON: 1. CT head wo con* [id number] 12/10/2021 6:11 PM 2. CR XR ribs LT mn 3V w CXR1V [id number] 10/31/2021 9:47 AM RADIATION DOSE METRICS: Total DLP (mGy-cm): 2363.99 FINDINGS: Right common carotid artery: No stenosis. No dissection or occlusion. Right internal carotid artery: No stenosis of the extracranial segment. No dissection or occlusion. Right external carotid artery: No occlusion or stenosis of the origin. Left common carotid artery: The left common carotid artery and innominate artery share a common trunk. No stenosis. Left internal carotid artery: No stenosis of the extracranial segment. No dissection or occlusion. Left external carotid artery: No occlusion or stenosis of the origin. Right vertebral artery: No stenosis. No dissection or occlusion. Left vertebral artery: No stenosis. No dissection or occlusion. Soft tissues: Normal. No significant soft tissue swelling. Bones/joints: No acute fracture. CT/CT angio headneck* [id number] IMPRESSION: 1. No large artery occlusion or stenosis. IMPRESSION: 1. No large artery occlusion, stenosis, or dissection. REFERENCES: NASCET CRITERIA. The degree of internal carotid artery stenosis is based on NASCET criteria. Normal is no stenosis. Mild is less than 50% stenosis. Moderate is 50-69% stenosis. Severe is 70% to 99% stenosis. Total occlusion is no detectable patent lumen.
[2021-12-10] MEDS: iodixanol 320 mg/mL 100mL Btl IV (18:21)
--- NOTE | 2021-12-10 18:50 | ECG_ITS ---
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 Measurements Intervals Harper Rate: 70 P: 60 WA: 188 QRS: -42 QRSD: 118 T: 46 QT: 415 QTc: 450 Interpretive Statements SINUS RHYTHM LEFT AXIS DEVIATION [QRS AXIS < -30] LOW QRS VOLTAGE IN PRECORDIAL LEADS [QRS DEFLECTION < 1.0 mV IN CHEST LEADS] ANTEROLATERAL MYOCARDIAL INFARCTION , OF INDETERMINATE AGE Compared to ECG 12/10/2021 17:32:10 Left-axis deviation now present Left anterior fascicular block no longer present Myocardial infarct finding still present Electronically Signed On 12-11-2021 7:31:39 CDT by Mimi May M.D. [id number]
[2021-12-10 18:53] VITALS: BP 147/95; PULSE 71; RESP 14; TEMP 36.7; O2SAT 100
[2021-12-10 19:15] LABS: Troponin 5 2HR 6.34 ng/L (0-10)
[2021-12-10 19:40] VITALS: BP 156/93; PULSE 72; RESP 16; TEMP 36.6; O2SAT 99
[2021-12-10 19:42] VITALS: BP 156/93; PULSE 72; RESP 16; TEMP 36.6; O2SAT 99
[2021-12-10 19:52] LABS: Troponin 5 2HR Delta -4.66 ABS# (0-10)
== END 2021-12-10 19:40 | disposition home or self-care (01) ==
PROVIDERS: Emergency Provider Emergency Medicine; PCP Internal Medicine
DX: I95.9 Hypotension, unspecified (principal); R42 Dizziness and giddiness
CPT/HCPCS: 36416; 70450; 70496; 70498; 80053; 82962; 83690; 84484; 85025; 93005; 96360; 96361; 99284; J7030; Q9967

== ENCOUNTER → 2022-01-17 11:01 | Outpatient (BNVA) | payer MEDICAID, SELFPAY | PROVIDERS: PCP Internal Medicine; Visit Provider Internal Medicine | DX: E03.9 Hypothyroidism, unspecified (principal); M25.562 Pain in left knee; R22.0 Localized swelling, mass and lump, head; M79.7 Fibromyalgia | CPT/HCPCS: 84443 ==

== ENCOUNTER 2022-01-29 15:13 | Outpatient (CLI) | payer MEDICAID, SELFPAY ==
--- NOTE | 2022-01-29 15:30 | CT_ITS ---
WS: [id number] CT NECK TECHNIQUE: Contrast-enhanced CT of the neck with coronal and sagittal reformatted images. CLINICAL INFORMATION: painful mass under her jaw. COMPARISON: None. DLP: 274.[address] scans at [facility] use at least one of these dose optimization techniques: automated e xposure control; mA and/or kV adjustment per patient size (includes targeted exams where dose is matc hed to clinical indication); or iterative reconstruction. FINDINGS: Parotid glands are normal. Normal submandibular glands. Palpable marker overlying the LEFT inferior p arotid gland. Normal normal underlying subcutaneous soft tissues. Normal underlying platysma. A few s lightly prominent LEFT submandibular and level 2 lymph nodes although not pathologically enlarged. La rgest measures 7 mm in short axis dimension. Normal underlying platysma and sternocleidomastoid. Mastoid air cells are well aerated. Paranasal sinuses are well aerated. Tongue base appears normal. N ormal parapharyngeal fat. Normal posterior nasopharynx. No evidence of supraglottic or glottic mass. Normal subglottic airway. Normal thyroid gland. Lung apices are well aerated. Straightening of the normal cervical lordosis. CT/CT neck w con* [id number] IMPRESSION: 1. No evidence of supraglottic or glottic mass. Posterior nasopharynx appears normal. 2. Normal salivary glands. 3. A few prominent LEFT level 2 and submandibular lymph nodes not pathological ly enlarged. Largest measures 6 mm. No evidence of subcutaneous mass or lesion in the area of palpable concern LEFT neck. 4. No other significant findings.
[2022-01-29] MEDS: iohexol 300 mg/mL 100 mL Btl IV (15:56)
== END 2022-01-29 15:14 | disposition home or self-care (01) ==
LOC: RAD 15:17
PROVIDERS: PCP Internal Medicine; Visit Provider Internal Medicine
DX: R22.0 Localized swelling, mass and lump, head (principal); R59.0 Localized enlarged lymph nodes
CPT/HCPCS: 70491

== ENCOUNTER → 2022-02-07 13:02 | Outpatient (BNVA) | payer MEDICAID, SELFPAY | PROVIDERS: PCP Internal Medicine; Referring Provider Internal Medicine; Visit Provider Specialist | DX: M25.561 Pain in right knee (principal); E66.01 Morbid (severe) obesity due to excess calories; M25.562 Pain in left knee | CPT/HCPCS: 73560; 73565; 99204 ==

== ENCOUNTER → 2022-02-19 10:46 | Outpatient (BNVA) | payer MEDICAID, SELFPAY | PROVIDERS: PCP Internal Medicine; Visit Provider Anesthesiology Pain Medicine | DX: M51.36 Other intervertebral disc degeneration, lumbar region (principal); M47.816 Spondylosis without myelopathy or radiculopathy, lumbar region; Z87.891 Personal history of nicotine dependence | CPT/HCPCS: 99205 ==

== ENCOUNTER → 2022-03-21 09:35 | Outpatient (BNVA) | payer MEDICAID, SELFPAY | PROVIDERS: PCP Internal Medicine; Visit Provider Anesthesiology Pain Medicine | DX: Z87.891 Personal history of nicotine dependence (principal); Z79.891 Long term (current) use of opiate analgesic; M51.36 Other intervertebral disc degeneration, lumbar region; M47.816 Spondylosis without myelopathy or radiculopathy, lumbar region | CPT/HCPCS: 99214 ==

== ENCOUNTER 2022-04-10 10:13 | Day surgery (SDC) | payer MEDICAID, SELFPAY ==
[2022-04-10 10:45] VITALS: BP 155/102; PULSE 81; RESP 18; TEMP 36.1; O2SAT 97; BMI 45.4
[2022-04-10] MEDS: sodium chloride 0.9% 1,000 ML 30 ML IV (10:52)
[2022-04-10 11:25] VITALS: PULSE 89; RESP 16; O2SAT 94
[2022-04-10 11:32] VITALS: PULSE 79
--- NOTE | 2022-04-10 12:02 | P.ANESASSM_ITS ---
Pre-Anesthetic Assessment Height/Weight: Height 1.63 m Weight 120.202 kg Temp Pulse Resp BP Pulse Ox O2 Del Method 96.9 F L 79 16 155/102 94 04/10/22 10:45 04/10/22 11:32 04/10/22 11:25 04/10/22 10:45 04/10/22 11:25 04/10/22 11:25 Preop Diagnosis: dysphagia Operation Date: 04/10/22 11:45 Proposed Procedures p EGD(Not Applicable) - Osvaldo Velasquez MD Familial anesthetic complications: None Was Beta Gregorio taken within 24 hours: N/A Was Clonidine taken within 24 hours: N/A Last intake: Intake Last Liquid Date 04/09/22 Last Liquid Time 21:00 Last Solid Date 04/09/22 Last Solid Time 16:30 Social No alcohol and No tobacco Exam alert, oriented x 3 and regular rate & rhythm Airway Submandibular: within normal limits Cervical ROM: within normal limits Mallampati: Class II Dentition: chipped Pulmonary Asthma CV/HEM Hypertension Metabolic Morbid Obesity and Thyroid Disease [facility] [place] Fibromyalgia Neuropsych Depression and Neuropathy Chronic pain Anesthetic Plan ASA status: 3 Anesthesia: MAC Medications/Allergies Home Medications Medication Instructions Recorded Confirmed Last Taken Type albuterol sulfate 90 mcg/actuation 2 puff inhalation Q6H PRN 08/08/21 04/10/22 04/09/22 Rx aerosol inhaler (ProAir HFA) shortness of breath or wheezing #8.5 grams fluticasone propionate 110 1 puff inhalation Q12H 10 days #12 08/26/21 04/10/22 04/09/22 Rx mcg/actuation HFA aerosol inhaler grams (Flovent HFA) pregabalin 75 mg capsule (Lyrica) 75 mg PO BID #60 caps 11/05/21 04/10/22 04/09/22 Rx methocarbamol 750 mg tablet 750 mg PO Q8H #21 tabs 11/30/21 04/10/22 04/09/22 Rx amitriptyline 50 mg tablet 50 mg PO BEDTIME 12/10/21 04/10/22 04/09/22 History cholecalciferol (vitamin D3) 25 25 mcg PO DAILY 12/10/21 04/10/22 04/09/22 History mcg (1,000 unit) capsule (Vitamin D3) vrmnxbtkoxl-cuu-msuwqeqzr-hrb 1 tab PO BID 12/10/21 04/10/22 04/09/22 History 149-hyalur 500 mg-500 mg-66.7 mg tablet (Qdvwggliemp-Wtvqblbloxe-QUD (with antiox)) levothyroxine 50 mcg tablet 50 mcg PO QAM 12/10/21 04/10/22 04/09/22 History (Synthroid) lisinopril 20 mg tablet 20 mg PO BEDTIME 12/10/21 04/10/22 04/09/22 History sertraline 100 mg tablet 100 mg PO BEDTIME 12/10/21 04/10/22 04/09/22 History dexlansoprazole 60 mg 60 mg PO DAILY #60 caps 02/18/22 04/10/22 04/09/22 Rx capsule,biphase delayed release (Dexilant) hydrocodone 5 mg-acetaminophen 325 1 tab PO TID PRN pain 7 days #21 03/21/22 04/10/22 04/09/22 Rx mg tablet tabs tizanidine 2 mg tablet 2 mg PO BID PRN muscle spasticity 03/21/22 04/10/22 04/09/22 Rx #60 tabs fluconazole 150 mg tablet 150 mg PO DAILY 3 days #3 tabs 04/09/22 04/10/22 04/09/22 Rx (Diflucan) nystatin 100,000 unit/mL oral 4 ml PO QID 7 days #112 mL 04/09/22 04/10/22 04/09/22 Rx suspension Allergies Allergy/AdvReac Type Severity Reaction Status Date / Time cumin Allergy Mild ADR-Itching Verified 04/10/22 10:42 tomato Allergy ALGY-Rash Verified 04/10/22 10:42 zolpidem [From Ambien] Allergy ADR-Halluci Verified 04/10/22 10:42 nating Current Medications Generic Name Dose Route Start Last Admin Trade Name Freq PRN Reason Stop Dose Admin Sodium Chloride 1,000 mls @ 30 mls/hr 04/10/22 10:45 04/10/22 10:52 Sodium Chloride 0.9% IV 30 mls/hr .Q24H ALESSANDRA Administration PFSH Anesthesia Medical History Asthma Chronic back pain COVID-19 Positive COVID test 08/08/2021. Depression, major, severe recurrence Fibromyalgia Gastritis GERD (gastroesophageal reflux disease) Hypertension Hypothyroidism Surgical History History of History of cholecystectomy History of surgery on arm Family History Other Cancer Social History Smoking and tobacco status: former smoker Alcohol intake: never Data Anesthesia Cardiac Studies: No Data to Display
[2022-04-10 12:19] VITALS: BP 136/78; PULSE 99; RESP 18; TEMP 36.2; O2SAT 100
[2022-04-10 12:31] VITALS: BP 155/71; PULSE 100; RESP 18; TEMP 36.2; O2SAT 97
--- NOTE | 2022-04-10 12:41 | ANE.PACU2 ---
Inpatient post-anesthesia follow up: Airway intact: Yes Vital signs: Temperature 97.1 F Pulse Rate 100 Respiratory Rate 18 Blood Pressure 155/71 Pulse Oximetry 97 Oxygen Delivery Me thod Room Air Oxygen Flow Rate Fraction of Inspir ed Oxygen Hydration adequate: Yes Nausea and vomiting: No Pain level: 2 Mental status: Baseline
[2022-04-10 12:53] LABS: SARS Covid-2 Antigen Negative (Negative)
[2022-04-15 07:51] LABS: H. Pylori / CLO Test Negative
--- NOTE | 2022-04-24 11:54 | W.PM.OPSFHP ---
Same Day Surgery H&P Indication for Procedure/HPI DATE OF PROCEDURE: April 24, 2022 CHIEF COMPLAINT/INDICATIONFOR SURGICAL PROCEDURE: Dysphagia PREOP DIAGNOSIS: dysphagia PLANNED PROCEDURE: Operation Date: 04/10/22 11:45 Proposed Procedures p EGD(Not Applicable) - Osvaldo Velasquez MD Medications/Allergies* Home Medications Medication Instructions Recorded Confirmed Type amitriptyline 50 mg tablet 50 mg PO BEDTIME 12/10/21 04/22/22 History cholecalciferol (vitamin D3) 25 25 mcg PO DAILY 12/10/21 04/22/22 History mcg (1,000 unit) capsule (Vitamin D3) abeihmvpimk-wze-lmxvvment-hrb 1 tab PO BID 12/10/21 04/22/22 History 149-hyalur 500 mg-500 mg-66.7 mg tablet (Uybstteyutg-Fvbovvvoglk-ZSP (with antiox)) levothyroxine 50 mcg tablet 50 mcg PO QAM 12/10/21 04/22/22 History (Synthroid) lisinopril 20 mg tablet 20 mg PO BEDTIME 12/10/21 04/22/22 History sertraline 100 mg tablet 100 mg PO BEDTIME 12/10/21 04/22/22 History Allergies/Adverse Reactions Allergy/AdvReac Type Severity Reaction Status Date / Time cumin Allergy Mild ADR-Itching Verified 04/22/22 09:52 tomato Allergy ALGY-Rash Verified 04/22/22 09:52 zolpidem [From Ambien] Allergy ADR-Halluci Verified 04/22/22 09:52 nating Pertinent History/Comorbid Conditions* Medical History (Updated 04/10/22 @ 09:39 by Osvaldo Velasquez MD) Asthma Chronic back pain COVID-19 Positive COVID test 08/08/2021. Depression, major, severe recurrence Fibromyalgia Gastritis GERD (gastroesophageal reflux disease) Hypertension Hypothyroidism Surgical History (Updated 07/16/21 @ 08:05 by Israel Olivas MD) History of History of cholecystectomy History of surgery on arm Family History (Updated 07/16/21 @ 08:06 by Israel Olivas MD) Cancer Social History Smoking and tobacco status: former smoker Alcohol intake: never Pertinent Exam Findings alert, oriented x 3, clear to auscultation bilaterally, regular rate & rhythm, operative site marked and procedure specific exam findings Recommendations Surgery/Procedure today Coding Level of Care Code Acute Interior Design Principal for Chg Fwotoniel
== END 2022-04-10 13:23 | disposition home or self-care (01) ==
PROVIDERS: PCP Internal Medicine; Visit Provider Internal Medicine
PROC: 0DJ08ZZ Inspection of Upper Intestinal Tract, Via Natural or Artificial Opening Endoscopic (ICD-10-PCS; CPT 43235; principal; 2022-04-10 11:45)
DX: R13.10 Dysphagia, unspecified (principal); K44.9 Diaphragmatic hernia without obstruction or gangrene; K21.00 Gastro-esophageal reflux disease with esophagitis, without bleeding; J45.909 Unspecified asthma, uncomplicated; I10 Essential (primary) hypertension; E66.01 Morbid (severe) obesity due to excess calories; Z68.42 Body mass index [BMI] 45.0-49.9, adult; M79.7 Fibromyalgia; Z87.891 Personal history of nicotine dependence
CPT/HCPCS: 43239; 87077; 87426; 94640; J2704; J3490; J7030; J7611

== ENCOUNTER 2022-04-18 09:26 | Outpatient (CLI) | payer MEDICAID, SELFPAY ==
--- NOTE | 2022-04-18 09:30 | MR_ITS ---
WS: [id number] MRI LUMBAR SPINE NONCONTRAST HISTORY: Herniated disc, chronic low back pain and LEFT thigh numbness. COMPARISON: None available. TECHNIQUE: Sagittal and axial multisequence imaging is submitted. Normal posterior lumbar alignment. Fatty replacement of the marrow in the adjacent endplates of L4 an d L5. No fracture or acute marrow edema. Moderate disc space narrowing at L4-5. Conus terminates normally at L1-2 disc level. L1-L2: Normal. L2-L3: Small amount of fluid in the facet joints. No stenosis. L3-L4: Central disc protrusion. Additional very small LEFT foraminal disc protrusion does not appear to be contacting the nerve roots. Mild facet and ligamentum flavum hypertrophy. No stenosis. Minimal facet joint effusion. L4-L5: Mild disc bulging. Small amount of fluid in the facet joints. No stenosis. L5-S1: Small amount of fluid in the facet joints. No stenosis or disc protrusion. MR/MR lumbar spine wo con* [id number] IMPRESSION: 1. No significant central or foraminal stenosis. 2. Moderate degenerative disc disease and desiccation at L4-5. 3. Small amount of fluid in the facet joints from L2-3 to L5-S1. 4. Very small central and LEFT foraminal disc protrusions at L3-4. No contact on the nerve roots.
== END 2022-04-18 09:27 | disposition home or self-care (01) ==
LOC: RAD 09:28
PROVIDERS: PCP Internal Medicine; Visit Provider Anesthesiology Pain Medicine
DX: M51.36 Other intervertebral disc degeneration, lumbar region (principal); M47.816 Spondylosis without myelopathy or radiculopathy, lumbar region; M51.26 Other intervertebral disc displacement, lumbar region
CPT/HCPCS: 72148

== ENCOUNTER → 2022-04-22 09:45 | Outpatient (BNVA) | payer MEDICAID, SELFPAY | PROVIDERS: PCP Internal Medicine; Visit Provider Anesthesiology Pain Medicine | DX: Z79.891 Long term (current) use of opiate analgesic (principal); Z87.891 Personal history of nicotine dependence; M51.36 Other intervertebral disc degeneration, lumbar region; M47.816 Spondylosis without myelopathy or radiculopathy, lumbar region | CPT/HCPCS: 99214 ==

== ENCOUNTER 2022-09-09 13:28 | Emergency (ER) | payer MEDICARE, MEDICAID, SELFPAY ==
[2022-09-09 13:29] VITALS: BP 130/84; PULSE 97; RESP 18; TEMP 36.1; O2SAT 97
--- NOTE | 2022-09-09 14:09 | ED_ITS ---
HPI - General Adult General: Chief complaint: Extremity Injury, Lower Stated complaint: hands and legs going numb Time Seen by Provider: 09/09/22 13:47 Source: patient Mode of arrival: ambulatory Limitations: no limitations History of Present Illness: Patient is a 52-year-old female presents to ED today with a few separate complaints. Patient states she has chronic back pain and when she sees pain management for her. She states over the past few weeks she has began noticing pain from the left side of her back radiating down into the lateral aspect of her left thigh. Patient is not having saddle anesthesia. She does not complain of any bowel or bladder dysfunction. Patient also states she has been having issues with her hands and feet going numb . She states this is happened intermittently over the past several years. She states at one point she had upper extremity nerve conduction studies performed which showed I had a bad neck . She states she is not having any paresthesias to the arm and this sensation only affects her hands. She does have a history of bilateral carpal tunnel syndrome but states her symptoms feel different. She feels it more in her right hand when she is using her cell phone. 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 She reports her feet also have intermittent paresthesias. The legs (apart from the left lateral thigh that sounds more like lumbar radiculopathy) not seem to be affecting. Her gait is normal. Onset (ago): week(s) Location: back, upper extremity and lower extremity Relieving factors: none Exacerbating factors: none Associated symptoms: Reports no associated symptoms; Deny chest pain, dyspnea, headache(s), malaise or rash Treatments prior to arrival: none Review of Systems Const: Denies: fever(s), chills, body aches, fatigue or malaise Card: Denies: chest pain Resp: Denies: dyspnea GI: Denies: abdominal pain : Denies: flank pain Musc: Reports: back pain (chronic); Denies: neck pain, extremity pain, extremity swelling, joint pain or joint swelling Skin/Breast: Denies: rash Neuro: Reports: numbness in extremities and sensory changes; Denies: headache(s), weakness in extremities, lack of coordination, difficulty walking, behavioral changes, Slurred speech present, difficulty communicating thoughts, seizure-like activity or restless legs PFSH ED PFSH: Medical History Asthma Chronic back pain COVID-19 Positive COVID test 08/08/2021. Depression, major, severe recurrence Fibromyalgia Gastritis GERD (gastroesophageal reflux disease) Hypertension Hypothyroidism Surgical History History of History of cholecystectomy History of surgery on arm Family History Other Cancer Social History Smoking and tobacco status: former smoker Second hand smoke exposure: No Alcohol intake: never History of recent travel: No Physical Exam Const: COMMON NORMALS: no acute distress, patient oriented x3, no limitations and alert GENERAL APPEARANCE: cooperative NUTRITIONAL APPEARANCE: obese ORIENTATION/CONSCIOUSNESS: Yes awake, Yes oriented to person, Yes oriented to place and Yes oriented to time HENMT: COMMON NORMALS: normocephalic and atraumatic HEAD & SCALP: normal to inspection, normocephalic and atraumatic Neck/C-Spine: COMMON NORMALS: full ROM, no lymphadenopathy and no meningeal signs GENERAL: Yes normal visual inspection CERVICAL SPINE: Yes cervical ROM normal Back/Pelvis: THORACIC SPINE/UPPER BACK: Yes normal to inspection, Yes thoracic ROM normal, No thoracic spinal tenderness, No paraspinal muscle tenderness and No paraspinal muscle spasm LUMBAR SPINE/LOWER BACK: Yes lumbar spinal tenderness, Yes paraspinal muscle tenderness Lumbar paraspinal muscle t enderness: left and Yes straight leg raise positive left PELVIS: Yes buttocks normal SACROILIAC JOINTS: Yes SI joint(s) abnormal (left) SI joint details: tender to palpation SACRUM: no tenderness COCCYX: no tenderness Extremity: COMMON NORMALS: normal to inspection, full ROM and capillary refill normal GENERAL: Yes normal exam except as noted Neuro: DAMASO COMA SCALE: document GCS findings Damaso coma scale eye opening: Spontaneous [place] coma scale verbal response: Orientated Damaso coma scale motor response: Obey commands [place] coma scale total score: 15 COMMON NORMALS: patient oriented x3, moves all extremities, no focal motor deficits, no sensory deficits noted and gait normal SENSORIUM/ORIENTATION: Yes alert, Yes oriented to person, Yes oriented to place and Yes oriented to time MENINGEAL SIGNS: Yes no meningeal signs CRANIAL NERVES: Yes CN normal except as noted SPEECH: speech normal GAIT: Yes Normal gait present SENSORY EXAM: Yes other (sensory appears grossly intact ) MOTOR EXAM: 5/5 motor strength present throughout and Tremors during motor activity present (R hand only) DEEP TENDON REFLEXES: Right patellar reflex intensity grade: 2+ and Left patellar reflex intensity grade: 2+ Skin: COMMON NORMALS: no rashes or lesions noted GENERAL SKIN EXAM: no rashes or lesions noted Course Vital Signs: Vital signs: Vital Signs Temperature 97.0 F L 09/09/22 13:29 Pulse Rate 84 09/09/22 14:48 Respiratory Rate 18 09/09/22 14:48 Blood Pressure 127/82 09/09/22 14:48 Pulse Oximetry 98 09/09/22 14:48 Oxygen Delivery Me thod 09/09/22 13:29 MDM - General Adult Medical Decision Making I think patient can speak to her primary care and/or pain management provider in regards to her left lumbar radiculopathy. She complains of some vague intermittent upper and lower extremity paresthesias. I think these can be further evaluated by neurology. I do not see any emergent need for advanced imaging or other work up from today's visit. Return to ED precautions given. Discharge Plan Discharge Patient Disposition: Home Clinical Impression: Left lumbar radiculopathy, Intermittent paresthesia of hand and foot Condition: Stable Prescriptions: No Action albuterol sulfate [ProAir HFA] 90 mcg/actuation HFA aerosol inhaler 2 puff inhalation Q6H PRN (Reason: shortness of breath or wheezing) Qty: 8.5 3RF Flovent HFA 110 mcg/actuation HFA aerosol inhaler 1 puff inhalation Q12H 10 Days Qty: 12 0RF tizanidine 2 mg tablet 2 mg PO BID PRN (Reason: muscle spasticity) Qty: 60 0RF pregabalin 150 mg capsule 150 mg PO BID Qty: 60 5RF Shingrix (PF) 50 mcg/0.5 mL suspension for reconstitution 0.5 ml IM ONCE Qty: 1 0RF hydrocodone-acetaminophen 5-325 mg tablet 1 tab PO DAILY PRN (Reason: pain) 30 Days Qty: 20 0RF dexlansoprazole [Dexilant] 60 mg capsule,biphase delayed releas 60 mg PO DAILY Qty: 60 4RF fluconazole [Diflucan] 150 mg tablet 150 mg PO DAILY 3 Days Qty: 3 0RF nystatin 100,000 unit/mL suspension 4 ml PO QID 7 Days Qty: 112 0RF Rx Instructions: administer 1/2 of dose in each side of the mouth methocarbamol 750 mg tablet 750 mg PO Q8H Qty: 21 0RF cholecalciferol (vitamin D3) [Vitamin D3] 25 mcg (1,000 unit) Capsule 25 mcg PO DAILY [id number] [Wyvjys-Yosbg-YVJ (with antiox)] 500-500-66.7 mg Tablet 1 tab PO BID amitriptyline 50 mg tablet 50 mg PO BEDTIME levothyroxine [Synthroid] 50 mcg tablet 50 mcg PO QAM lisinopril 20 mg tablet 20 mg PO BEDTIME sertraline 100 mg tablet 100 mg PO BEDTIME Discharge Orders: Discharge ED (Routine); Ordered 09/09/22 Ordered By: Aneta Medina Referrals: Osvaldo Velasquez MD [Primary Care Provider] - Coding Level of Care Code ED Leather Cleaner for Chrisg Fwd Exam Detailed
[2022-09-09 14:48] VITALS: BP 127/82; PULSE 84; RESP 18; O2SAT 98
--- NOTE | 2022-09-10 13:39 | DCPLANNER ---
Addendum entered by Selam Cavazos 11/11/22 07:48: Patient had a follow up appointment scheduled with neurology - patient did attend appointment Addendum entered by Selam Cavazos 09/13/22 12:47: Patient has a follow up appointment scheduled for Tuesday, November 01, 2022 at 10:[address] Ye at neurology. Clinic will call patient with appointment information. Original Note: web manager had message to schedule a follow up appointment for patient with neurology. web manager sent patients information to the front office staff at neurology. Patients information will be printed and reviewed. Clinic will call patient with appointment information.
== END 2022-09-09 14:49 | disposition home or self-care (01) ==
PROVIDERS: Emergency Provider Physician Assistant; PCP Internal Medicine
DX: M54.16 Radiculopathy, lumbar region (principal); R20.2 Paresthesia of skin; I10 Essential (primary) hypertension; Z87.891 Personal history of nicotine dependence
CPT/HCPCS: 99282

== ENCOUNTER → 2022-09-12 10:21 | Outpatient (BNVA) | payer MEDICARE, MEDICAID, SELFPAY | PROVIDERS: PCP Internal Medicine; Visit Provider Anesthesiology Pain Medicine | DX: M51.36 Other intervertebral disc degeneration, lumbar region (principal); M47.816 Spondylosis without myelopathy or radiculopathy, lumbar region; M25.561 Pain in right knee; M25.562 Pain in left knee | CPT/HCPCS: 99214 ==

== ENCOUNTER → 2022-10-03 11:36 | Outpatient (BNVA) | payer MEDICARE, MEDICAID, SELFPAY | PROVIDERS: PCP Family Medicine; Visit Provider Family Medicine | DX: F33.2 Major depressive disorder, recurrent severe without psychotic features (principal); I10 Essential (primary) hypertension; E03.9 Hypothyroidism, unspecified; M51.36 Other intervertebral disc degeneration, lumbar region | CPT/HCPCS: 80053; 80061; 84443; 85025 ==

== ENCOUNTER → 2022-10-23 08:43 | Outpatient (BNVA) | payer MEDICARE, MEDICAID, SELFPAY | PROVIDERS: PCP Family Medicine; Visit Provider Anesthesiology Pain Medicine | DX: M25.511 Pain in right shoulder (principal); M51.36 Other intervertebral disc degeneration, lumbar region; M47.816 Spondylosis without myelopathy or radiculopathy, lumbar region | CPT/HCPCS: 99214 ==

== ENCOUNTER → 2022-10-31 10:50 | Outpatient (BNVA) | payer MEDICARE, MEDICAID, SELFPAY | PROVIDERS: PCP Family Medicine; Visit Provider Family Medicine | DX: R79.89 Other specified abnormal findings of blood chemistry (principal) | CPT/HCPCS: 80048 ==

== ENCOUNTER → 2022-11-01 09:47 | Outpatient (BNVA) | payer MEDICARE, MEDICAID, SELFPAY | PROVIDERS: PCP Family Medicine; Referring Provider Physician Assistant; Visit Provider Specialist | DX: G57.12 Meralgia paresthetica, left lower limb (principal); N18.9 Chronic kidney disease, unspecified; G62.89 Other specified polyneuropathies | CPT/HCPCS: 64447; 64450; 99204; J1030; J3490 ==

== ENCOUNTER → 2022-12-25 12:34 | Outpatient (BNVA) | payer MEDICARE, SELFPAY | PROVIDERS: PCP Family Medicine; Visit Provider Family Medicine | DX: F33.2 Major depressive disorder, recurrent severe without psychotic features (principal) | CPT/HCPCS: 84443 ==

== ENCOUNTER → 2023-01-02 14:43 | Outpatient (BNVA) | payer MEDICARE, SELFPAY | PROVIDERS: PCP Family Medicine; Visit Provider Anesthesiology Pain Medicine | DX: M47.816 Spondylosis without myelopathy or radiculopathy, lumbar region (principal) | CPT/HCPCS: 64493; 64494; 64495; J3490 ==

== ENCOUNTER 2023-01-10 08:45 | Emergency (ER) | payer MEDICARE, MEDICAID, SELFPAY ==
[2023-01-10 08:58] VITALS: BP 136/77; PULSE 75; RESP 18; TEMP 36.9; O2SAT 96
--- NOTE | 2023-01-10 09:01 | ED_ITS ---
Documented by User: BETO Bowman 01/10/23 12:41 HPI - Nausea/Vomiting/Diarrhea General: Chief complaint: Nausea/Vomiting/Diarrhea Stated complaint: nausea/vomiting Time Seen by Provider: 01/10/23 08:50 Source: patient Mode of arrival: ambulatory Limitations: no limitations History of Present Illness: Patient is a 52-year-old female who presents to ED today with a complaint of nausea and vomiting. She states about 3 days ago she started with watery diarrhea. She states she had about 2-3 episodes total during the day. She has not had any further episodes of diarrhea over the past 48 hours. She states she has been having about 2-3 episodes of emesis a day that she mainly describes as dry heaving. She has not noticed any blood in her stool or vomitus. She has not run fevers. She does have some intermittent abdominal cramping that seems to improve after defecation and vomiting. No sick contacts. No poor food exposures. No new medications. MD elicited complaint: nausea, vomiting and abdominal pain Onset (ago): day(s) Associated nausea: Yes Associated abdominal pain: Yes Location of pain: Diffuse Radiation: diffuse Pain consistency: intermittent Severity: mild Quality: cramping Relieving factors: none Associated symtoms: Reports nausea; Denies change in vision, chest pain, dizziness, dysuria, fatigue, headache(s), malaise, palpitations or syncope Review of Systems Const: Denies: fever(s), chills, body aches, fatigue or malaise Eyes: Denies: change in vision, blurry vision, photophobia, floaters or seeing flashes Card: Denies: chest pain, palpitations, irregular heart rhythm, lightheadedness, syncope or dyspnea on exertion Resp: Denies: dyspnea, productive cough or pain on inspiration GI: Reports: abdominal pain, nausea, vomiting, diarrhea and GI cramping; Denies: hematemesis, heartburn, pain on defecation, rectal pain, rectal swelli ng, hematochezia or melena : Denies: flank pain, difficulty voiding, dysuria, urinary frequency or urinary urgency Musc: Denies: neck pain, back pain, extremity pain, extremity swelling or joint pain Skin/Breast: Denies: rash Neuro: Denies: headache(s), numbness in extremities, weakness in extremities, sensory changes or dizziness [facility] ED PFSH: Medical History Asthma Chronic back pain COVID-19 Positive COVID test 08/08/2021. Depression, major, severe recurrence Fibromyalgia Gastritis GERD (gastroesophageal reflux disease) EGD 2021 - normal, polyps in the past. Hypertension Hypothyroidism Surgical History History of History of cholecystectomy History of surgery on arm Family History Other Cancer Social History Smoking and tobacco status: former smoker Second hand smoke exposure: No Alcohol intake: never Substance/Drug Use: never Additional social history: Goes by Leeann Physical Exam Const: COMMON NORMALS: no acute distress, patient oriented x3, no limitations and alert GENERAL APPEARANCE: cooperative NUTRITIONAL APPEARANCE: obese morbidly obese ORIENTATION/CONSCIOUSNESS: Yes awake, Yes oriented to person, Yes oriented to place and Yes oriented to time HENMT: COMMON NORMALS: normocephalic and atraumatic HEAD & SCALP: normal to inspection, normocephalic and atraumatic Neck/C-Spine: COMMON NORMALS: full ROM, no lymphadenopathy, supple and no meningeal signs Resp: COMMON NORMALS: normal respiratory effort and clear to auscultation bilaterally AUSCULTATION: clear to auscultation bilaterally Cardio: COMMON NORMALS: regular rate and regular rhythm RATE: regular rate RHYTHM: regular rhythm GI: COMMON NORMALS: Normal to inspection, nondistended, normoactive bowel sounds present, Soft to palpation and no masses INSPECTION: Yes normal to inspection AUSCULTATION: Yes normoactive bowel sounds PALPATION: Yes Soft to palpation, Yes Tenderness to palpation present (GI) (RUQ and throughout lower abdomen), No Guarding due to palpation present (GI) and No Rigid due to palpation : COMMON NORMALS: Yes no CVA tenderness BLADDER/KIDNEY EXAM: Yes no CVA tenderness Back/Pelvis: COMMON NORMALS: no CVA tenderness, thoracic and lumbar spine normal to inspection, no thoracic nor lumbar tenderness and thoraco-lumbar ROM normal Extremity: COMMON NORMALS: normal to inspection GENERAL: Yes normal exam except as noted Neuro: DAMASO COMA SCALE: document GCS findings [place] coma scale eye opening: Spontaneous [place] coma scale verbal response: Orientated [place] coma scale motor response: Obey commands [place] coma scale total score: 15 COMMON NORMALS: patient oriented x3 SENSORIUM/ORIENTATION: Yes alert, Yes oriented to person, Yes oriented to place and Yes oriented to time MENINGEAL SIGNS: Yes no meningeal signs Skin: COMMON NORMALS: no rashes or lesions noted GENERAL SKIN EXAM: no rashes or lesions noted Course Vital Signs: Vital signs: Vital Signs Temperature 98.4 F 01/10/23 08:58 Pulse Rate 80 01/10/23 12:42 Respiratory Rate 16 01/10/23 12:42 Blood Pressure 157/101 01/10/23 12:42 Pulse Oximetry 96 01/10/23 12:42 Oxygen Delivery Me thod Room Air 01/10/23 09:28 MDM - Nausea/Vomiting/Diarrhea Medical Decision Making Patient has not complained of any abdominal pain during her stay. She did have some mild tenderness with palpation on physical examination but abdomen is nonsurgical. I do not feel CT imaging is needed or indicated. Her vital signs are normal. Blood work is nonactionable. She was given a liter of fluids as well as multiple antiemetics. She was able to hold down some liquid and crackers. She states she would like to go home and rest at home. She will be sent home with a prescription for Reglan. Recommend clear/bland liquid diet over the next 24 to 48 hours and advance as tolerated. Recommend follow-up with primary care early next week. Return ED precautions given. Lab Data 01/10/23 09:28 01/10/23 09:28 Laboratory Results WBC 5.7 10^3/uL (4.0-10.0) 01/10/23 09:28 RBC 4.69 10^6/uL (4.1-5.3) 01/10/23 09:28 Hgb 10.9 g/dL (11.5-15.3) L 01/10/23 09:28 Hct 36.0 % (37.0-47.0) L 01/10/23 09:28 MCV 76.8 fl (81-99) L 01/10/23 09:28 MCH 23.2 pg (28.0-34.0) L 01/10/23 09:28 MCHC 30.3 g/dL (30.0-36.0) 01/10/23 09: RDW 16.5 % (12.1-15.1) H 01/10/23 09: Plt Count 268 10^3/cmm (130-400) 01/10/23 09: MPV 10.1 fL (7.4-10.4) 01/10/23 09: Neut % (Auto) 77.7 % 01/10/23 09: Lymph % (Auto) 15.6 % 01/10/23 09: Cass % (Auto) 4.2 % 01/10/23: Eos % (Auto) 0.9 % 01/10/23: Baso % (Auto) 0.9 % 01/10/23: Neut # (Auto) 4.44 10^3/uL (1.8-7.7) 01/10/23 09: Lymph # (Auto) 0.9 10^3/uL (0.8-4.8) 01/10/23: Cass # (Auto) 0.2 10^3/uL (0.2-0.9) 01/10/23 09: Eos # (Auto) 0.1 10^3/uL (0.0-0.8) 01/10/23: Baso # (Auto) 0.1 10^3/uL (0.0-0.1) 01/10/23: Nucleated RBC % (auto) 0 % 01/10/23: Nucleated RBCs # 0.0 /100WBC 01/10/23: Sodium 136 mmol/L (136-145) 01/10/23 09: Potassium 4.2 mmol/L (3.5-5.1) 01/10/23: Chloride 102 mmol/L (98-107) 01/10/23: Carbon Dioxide 20 mmol/L (22-29) L 01/10/23: Anion Gap 18.2 (5-19) 01/10/23: BUN 12 mg/dL (6-20) 01/10/23 09: Creatinine 1.1 mg/dL (0.5-0.9) H 01/10/23 09:28 GFR Calculation 52.0 mL/min (90-130) L 01/10/23 09:28 Glucose 97 mg/dL (65-115) 01/10/23 09:28 Calculated Osmolality 282 mOsm/kg (285-295) L 01/10/23 09:28 Calcium 9.4 mg/dL (8.5-10.5) 01/10/23 09:28 Total Bilirubin 0.3 mg/dL (0.15-1.2) 01/10/23 09:28 AST 16 U/L (0-32) 01/10/23 09:28 ALT 9 U/L (0-33) 01/10/23 09:28 Alkaline Phosphatase 106 U/L (35-105) H 01/10/23 09:28 Total Protein 7.2 g/dL (6.6-8.7) 01/10/23 09:28 Albumin 3.8 g/dL (3.5-5.2) 01/10/23 09:28 Globulin 3.4 g/dL (1.3-4.6) 01/10/23 09:28 Lipase 23 U/L (13-60) 01/10/23 09:28 Urine Color Yellow (Yellow) 01/10/23 10:55 Urine Appearance Clear (CLEAR) 01/10/23 10:55 Urine pH 8 (5-7) H 01/10/23 10:55 Ur Specific [place] 1.010 (1.005-1.030) 01/10/23 10:55 Urine Protein Neg (Negative) 01/10/23 10:55 Urine Glucose (UA) Norm (Normal) 01/10/23 10:55 Urine Ketones 2+ (Negative) H 01/10/23 10:55 Urine Blood Neg (Negative) 01/10/23 10:55 Urine Nitrate Negative (Negative) 01/10/23 10:55 Urine Bilirubin Neg (Negative) 01/10/23 10:55 Prot Sulfosalicylic Acd Negative (Negative) 01/10/23 10:55 Urine Urobilinogen Neg mg/dL (Negative) 01/10/23 10:55 Ur Leukocyte Esterase Negative (Negative) 01/10/23 10:55 Discharge Plan Discharge Patient Disposition: Home Clinical Impression: Nausea and vomiting Qualifiers: Vomiting type: unspecified Qualified Code(s): R11.2 - Nausea with vomiting, unspecified Condition: Stable Prescriptions: New metoclopramide HCl 10 mg tablet 10 mg PO Q6H PRN (Reason: nausea and vomiting) Qty: 14 0RF No Action albuterol sulfate [ProAir HFA] 90 mcg/actuation HFA aerosol inhaler 2 puff inhalation Q6H PRN (Reason: shortness of breath or wheezing) Qty: 8.5 3RF Flovent HFA 110 mcg/actuation HFA aerosol inhaler 1 puff inhalation Q12H 10 Days Qty: 12 0RF tizanidine 2 mg tablet 2 mg PO BID PRN (Reason: muscle spasticity) Qty: 60 0RF esomeprazole magnesium [Nexium] 40 mg capsule,delayed release(DR/EC) 40 mg PO DAILY Qty: 90 3RF amitriptyline 50 mg tablet 50 mg PO BEDTIME Qty: 90 3RF levothyroxine 75 mcg capsule 75 mcg PO DAILY Qty: 90 3RF lisinopril 20 mg tablet 20 mg PO BEDTIME Qty: 90 3RF sertraline 100 mg tablet 100 mg PO BEDTIME Qty: 90 3RF pregabalin 150 mg capsule 150 mg PO TID Qty: 90 5RF montelukast [Singulair] 10 mg tablet 10 mg PO DAILY Qty: 30 11RF hydrocodone-acetaminophen 5-325 mg tablet 1 tab PO DAILY PRN (Reason: pain) 30 Days Qty: 20 0RF methocarbamol 750 mg tablet 750 mg PO Q8H Qty: 21 0RF cholecalciferol (vitamin D3) [Vitamin D3] 25 mcg (1,000 unit) Capsule 25 mcg PO DAILY [id number] [[id number] (with antiox)] 500-500-66.7 mg Tablet 1 tab PO BID Discharge Orders: Discharge ED (Routine); Ordered 01/10/23 Ordered By: Aneta Medina Referrals: Aidan Garcia MD [Primary Care Provider] - Patient Instructions: Acute Nausea and Vomiting (DC) Activity Restrictions/Additional Instructions: As we discussed I want you to do a bland liquid diet over the next 24 to 48 hours and slowly advance as tolerated. Please follow-up with your primary care provider early next week for reevaluation if symptoms persist. You may return to the emergency department for severe abdominal pain, fevers, repetitive episodes of nausea or vomiting, or any other concerns you may have. Coding Level of Care Code ED [employer] for [employer] Documented by User: Nasir Mcdonald DO 01/10/23 16:24 HPI - Nausea/Vomiting/Diarrhea General: Chief complaint: Nausea/Vomiting/Diarrhea Stated complaint: nausea/vomiting Time Seen by Provider: 01/10/23 08:50 PFSH ED PFSH: Medical History Asthma Chronic back pain COVID-19 Positive COVID test 08/08/2021. Depression, major, severe recurrence Fibromyalgia Gastritis GERD (gastroesophageal reflux disease) EGD 2021 - normal, polyps in the past. Hypertension Hypothyroidism Surgical History History of History of cholecystectomy History of surgery on arm Family History Other Cancer Social History Smoking and tobacco status: former smoker Second hand smoke exposure: No Alcohol intake: never Substance/Drug Use: never Additional social history: Goes by Leeann Physical Exam Neuro: DAMASO COMA SCALE: document GCS findings [place] coma scale total score: 15 Course Vital Signs: Vital signs: Vital Signs Temperature 98.4 F 01/10/23 08:58 Pulse Rate 80 01/10/23 12:42 Respiratory Rate 16 01/10/23 12:42 Blood Pressure 157/101 01/10/23 12:42 Pulse Oximetry 96 01/10/23 12:42 Oxygen Delivery Me thod Room Air 01/10/23 09:28 MDM - Nausea/Vomiting/Diarrhea Medical Decision Making Patient has not complained of any abdominal pain during her stay. She did have some mild tenderness with palpation on physical examination but abdomen is nonsurgical. I do not feel CT imaging is needed or indicated. Her vital signs are normal. Blood work is nonactionable. She was given a liter of fluids as well as multiple antiemetics. She was able to hold down some liquid and crackers. She states she would like to go home and rest at home. She will be sent home with a prescription for Reglan. Recommend clear/bland liquid diet ov er the next 24 to 48 hours and advance as tolerated. Recommend follow-up with primary care early next week. Return ED precautions given. Chart reviewed and patient discussed with midlevel. Agree with assessment and plan. Lab Data 01/10/23 09:28 01/10/23 09: Laboratory Results WBC 5.7 10^3/uL (4.0-10.0) 01/10/23: RBC 4.69 10^6/uL (4.1-5.3) 01/10/23 09: Hgb 10.9 g/dL (11.5-15.3) L 01/10/23: Hct 36.0 % (37.0-47.0) L 01/10/23: MCV 76.8 fl (81-99) L 01/10/23 09: MCH 23.2 pg (28.0-34.0) L 01/10/23 09: MCHC 30.3 g/dL (30.0-36.0) 01/10/23: RDW 16.5 % (12.1-15.1) H 01/10/23: Plt Count 268 10^3/cmm (130-400) 01/10/23: MPV 10.1 fL (7.4-10.4) 01/10/23 09: Neut % (Auto) 77.7 % 01/10/23: Lymph % (Auto) 15.6 % 01/10/23: Cass % (Auto) 4.2 % 01/10/23: Eos % (Auto) 0.9 % 01/10/23: Baso % (Auto) 0.9 % 01/10/23: Neut # (Auto) 4.44 10^3/uL (1.8-7.7) 01/10/23: Lymph # (Auto) 0.9 10^3/uL (0.8-4.8) 01/10/23 09:28 Cass # (Auto) 0.2 10^3/uL (0.2-0.9) 01/10/23 09:28 Eos # (Auto) 0.1 10^3/uL (0.0-0.8) 01/10/23 09:28 Baso # (Auto) 0.1 10^3/uL (0.0-0.1) 01/10/23 09:28 Nucleated RBC % (auto) 0 % 01/10/23 09:28 Nucleated RBCs # 0.0 /100WBC 01/10/23 09:28 Sodium 136 mmol/L (136-145) 01/10/23 09: Potassium 4.2 mmol/L (3.5-5.1) 01/10/23 09: Chloride 102 mmol/L (98-107) 01/10/23 09: Carbon Dioxide 20 mmol/L (22-29) L 01/10/23 09:28 Anion Gap 18.2 (5-19) 01/10/23 09:28 BUN 12 mg/dL (6-20) 01/10/23 09:28 Creatinine 1.1 mg/dL (0.5-0.9) H 01/10/23 09:28 GFR Calculation 52.0 mL/min (90-130) L 01/10/23 09:28 Glucose 97 mg/dL (65-115) 01/10/23 09:28 Calculated Osmolality 282 mOsm/kg (285-295) L 01/10/23 09:28 Calcium 9.4 mg/dL (8.5-10.5) 01/10/23 09:28 Total Bilirubin 0.3 mg/dL (0.15-1.2) 01/10/23 09:28 AST 16 U/L (0-32) 01/10/23 09:28 ALT 9 U/L (0-33) 01/10/23 09:28 Alkaline Phosphatase 106 U/L (35-105) H 01/10/23 09:28 Total Protein 7.2 g/dL (6.6-8.7) 01/10/23 09:28 Albumin 3.8 g/dL (3.5-5.2) 01/10/23 09: Globulin 3.4 g/dL (1.3-4.6) 01/10/23 09:28 Lipase 23 U/L (13-60) 01/10/23 09:28 Urine Color Yellow (Yellow) 01/10/23 10:55 Urine Appearance Clear (CLEAR) 01/10/23 10:55 Urine pH 8 (5-7) H 01/10/23 10:55 Ur Specific [place] 1.010 (1.005-1.030) 01/10/23 10:55 Urine Protein Neg (Negative) 01/10/23 10:55 Urine Glucose (UA) Norm (Normal) 01/10/23 10:55 Urine Ketones 2+ (Negative) H 01/10/23 10:55 Urine Blood Neg (Negative) 01/10/23 10:55 Urine Nitrate Negative (Negative) 01/10/23 10:55 Urine Bilirubin Neg (Negative) 01/10/23 10:55 Prot Sulfosalicylic Acd Negative (Negative) 01/10/23 10:55 Urine Urobilinogen Neg mg/dL (Negative) 01/10/23 10:55 Ur Leukocyte Esterase Negative (Negative) 01/10/23 10:55 Discharge Plan Discharge Patient Disposition: Home Clinical Impression: Nausea and vomiting Qualifiers: Vomiting type: unspecified Qualified Code(s): R11.2 - Nausea with vomiting, unspecified Condition: Stable Prescriptions: New metoclopramide HCl 10 mg tablet 10 mg PO Q6H PRN (Reason: nausea and vomiting) Qty: 14 0RF No Action albuterol sulfate [ProAir HFA] 90 mcg/actuation HFA aerosol inhaler 2 puff inhalation Q6H PRN (Reason: shortness of breath or wheezing) Qty: 8.5 3RF Flovent HFA 110 mcg/actuation HFA aerosol inhaler 1 puff inhalation Q12H 10 Days Qty: 12 0RF tizanidine 2 mg tablet 2 mg PO BID PRN (Reason: muscle spasticity) Qty: 60 0RF esomeprazole magnesium [Nexium] 40 mg capsule,delayed release(DR/EC) 40 mg PO DAILY Qty: 90 3RF amitriptyline 50 mg tablet 50 mg PO BEDTIME Qty: 90 3RF levothyroxine 75 mcg capsule 75 mcg PO DAILY Qty: 90 3RF lisinopril 20 mg tablet 20 mg PO BEDTIME Qty: 90 3RF sertraline 100 mg tablet 100 mg PO BEDTIME Qty: 90 3RF pregabalin 150 mg capsule 150 mg PO TID Qty: 90 5RF montelukast [Singulair] 10 mg tablet 10 mg PO DAILY Qty: 30 11RF hydrocodone-acetaminophen 5-325 mg tablet 1 tab PO DAILY PRN (Reason: pain) 30 Days Qty: 20 0RF methocarbamol 750 mg tablet 750 mg PO Q8H Qty: 21 0RF cholecalciferol (vitamin D3) [Vitamin D3] 25 mcg (1,000 unit) Capsule 25 mcg PO DAILY [id number] [[id number] (with antiox)] 500-500-66.7 mg Tablet 1 tab PO BID Discharge Orders: Discharge ED (Routine); Ordered 01/10/23 Ordered By: Aneta Medina Referrals: Aidan Garcia MD [Primary Care Provider] - Patient Instructions: Acute Nausea and Vomiting (DC) Activity Restrictions/Additional Instructions: As we discussed I want you to do a bland liquid diet over the next 24 to 48 hours and slowly advance as tolerated. Please follow-up with your primary care provider early next week for reevaluation if symptoms persist. You may return to the emergency department for severe abdominal pain, fevers, repetitive episodes of nausea or vomiting, or any other concerns you may have. Coding Level of Care Code ED [employer] Machine for Urv[facility] [employer]
[2023-01-10] MEDS: sodium chloride 0.9% 1,000 ML 999 ML IV (09:13)
[2023-01-10] MEDS: metoclopramide 5 mg/mL SDV 2 mL 10 MG IVP (09:13)
[2023-01-10 09:28] VITALS: BP 163/89; PULSE 75; RESP 18; O2SAT 93
[2023-01-10 09:35] LABS: Basophils # 0.1 10^3/uL (0.0-0.1); Basophils % 0.9 %; Eosinophils # 0.1 10^3/uL (0.0-0.8); Eosinophils % 0.9 %; Hemoglobin 10.9 g/dL (11.5-15.3); Lymphocytes # 0.9 10^3/uL (0.8-4.8); Lymphocytes % 15.6 %; Mean Corpuscular HGB Conc 30.3 g/dL (30.0-36.0); Mean Corpuscular Hemoglobin 23.2 pg (28.0-34.0); Mean Corpuscular Volume 76.8 fl (81-99); Mean Platelet Volume 10.1 fL (7.4-10.4); Monocytes # 0.2 10^3/uL (0.2-0.9); Monocytes % 4.2 %; Neutrophils # 4.44 10^3/uL (1.8-7.7); Neutrophils % 77.7 %; Nucleated Red Blood Cells % 0 %; Platelet Count 268 10^3/cmm (130-400); Red Blood Count 4.69 10^6/uL (4.1-5.3); Red Cell Distribution Width 16.5 % (12.1-15.1); White Blood Count 5.7 10^3/uL (4.0-10.0)
[2023-01-10 09:54] LABS: Alanine Aminotransferase 9 U/L (0-33); Albumin Level 3.8 g/dL (3.5-5.2); Alkaline Phosphatase 106 U/L (35-105); Anion Gap 18.2 (5-19); Aspartate Amino Transferase 16 U/L (0-32); Blood Urea Nitrogen 12 mg/dL (6-20); Calcium 9.4 mg/dL (8.5-10.5); Carbon Dioxide 20 mmol/L (22-29); Chloride 102 mmol/L (98-107); Globulin 3.4 g/dL (1.3-4.6); Glucose 97 mg/dL (65-115); Lipase 23 U/L (13-60); Osmolality Calculated 282 mOsm/kg (285-295); Potassium 4.2 mmol/L (3.5-5.1); Sodium 136 mmol/L (136-145); Total Bilirubin 0.3 mg/dL (0.15-1.2); Total Protein 7.2 g/dL (6.6-8.7)
[2023-01-10 10:28] VITALS: BP 131/90; PULSE 79; RESP 18; O2SAT 98
[2023-01-10 10:30] VITALS: BP 131/90; PULSE 79; RESP 16; O2SAT 98
[2023-01-10 11:01] LABS: Add Urine Microscopic? NO; Charge for UA Resulting for Rev
[2023-01-10 11:07] LABS: Urine Appearance Clear (CLEAR); Urine Color Yellow (Yellow); pH Urine 8 (5-7)
[2023-01-10 11:08] LABS: Bilirubin Urine Neg (Negative); Blood Urine Neg (Negative); Glucose Urine UA Norm (Normal); Ketones Urine 2+ (Negative); Leukocyte Esterase Urine Negative (Negative); Nitrate Urine Negative (Negative); Protein Urine Neg (Negative); Sulfosalicylic Acid Urine Negative (Negative); Urobilinogen Urine Neg (Negative)
[2023-01-10] MEDS: promethazine 25 mg/mL SDV 1 mL 50 MG IM (11:12)
--- NOTE | 2023-01-10 11:22 | PC.NURSE ---
PT ATTEMPTED TO EAT CRACKERS. PT UNABLE TO DO SO. PT GIVEN L[place]ON [place] QUINN PER PHYSICIAN VERBAL ORDER. PT ABLE TO TAKE SMALL DRINKS OF QUINN.
[2023-01-10 11:30] VITALS: BP 159/91; PULSE 82; RESP 16; O2SAT 98
[2023-01-10 12:42] VITALS: BP 157/101; PULSE 80; RESP 16; O2SAT 96
== END 2023-01-10 12:43 | disposition home or self-care (01) ==
PROVIDERS: Emergency Provider Physician Assistant; PCP Family Medicine
DX: R11.2 Nausea with vomiting, unspecified (principal); I10 Essential (primary) hypertension; Z87.891 Personal history of nicotine dependence
CPT/HCPCS: 80053; 81003; 83690; 85025; 96361; 96372; 96374; 99284; J2550; J2765; J7030

== ENCOUNTER 2023-01-11 10:37 | Emergency (ER) | payer MEDICARE, MEDICAID, SELFPAY ==
[2023-01-11 10:46] VITALS: BP 179/85; PULSE 84; RESP 20; TEMP 37.4; O2SAT 100
--- NOTE | 2023-01-11 11:25 | CTR_ITS ---
PROCEDURE INFORMATION: Exam: CT Abdomen And Pelvis With Contrast Exam date and time: 01/11/2023 11:47 AM Age: 52 years old Clinical indication: Abdominal pain; Epigastric TECHNIQUE: Imaging protocol: Computed tomography of the abdomen and pelvis with contrast. Radiation optimization: All CT scans at this facility use at least one of these dose optimization techniques: automated exposure control; mA and/or kV adjustment per patient size (includes targeted exams where dose is matched to clinical indication); or iterative reconstruction. Contrast material: OMNI 350; Contrast volume: 100 ml; Contrast route: INTRAVENOUS (IV); REPORTING DATA: Count of CT and Cardiac NM exams in prior 12 months: This patient has received [address] and 0 known cardiac nuclear medicine studies in the 12 months prior to the current study. COMPARISON: CT abdomen pelvis w con* [id number] 07/16/2021 12:18 PM RADIATION DOSE METRICS: Total DLP (mGy-cm): 1228.43 FINDINGS: Lungs: Lung bases are clear. Liver: Normal. No mass. Gallbladder and bile ducts: Gallbladder has been removed. Bile ducts are not appreciably dilated.. Pancreas: Unremarkable. Main pancreatic duct is not significantly dilated. Spleen: Spleen is mildly enlarged, unchanged. Adrenal glands: Normal. No mass. Kidneys and ureters: 2.5 cm left renal cyst likely benign otherwise kidneys are unremarkable. Stomach and bowel: Unremarkable. No obstruction. No mucosal thickening. Appendix: No evidence of appendicitis. Intraperitoneal space: Unremarkable. No free air. No significant fluid collection. Vasculature: Unremarkable. No abdominal aortic aneurysm. Lymph nodes: Unremarkable. No enlarged lymph nodes. Urinary bladder: Unremarkable as visualized. Reproductive: Unremarkable as visualized. Bones/joints: Mild degenerative changes lower lumbar spine.. No acute fracture. Soft tissues: Unremarkable. CT/CT abdomen pelvis w con* [id number] IMPRESSION: 1. No acute findings within the abdomen or pelvis. 2. Mild splenomegaly unchanged. 3. 2.5 cm benign-appearing left renal cyst, stable.
[2023-01-11] MEDS: metoclopramide 5 mg/mL SDV 2 mL 10 MG IVP (11:35)
[2023-01-11] MEDS: sodium chloride 0.9% 1,000 ML 999 ML IV (11:35)
[2023-01-11 11:38] VITALS: BP 158/107; PULSE 85; RESP 24; O2SAT 100
[2023-01-11 11:47] LABS: Basophils % 0.5 %; Hematocrit 35.7 % (37.0-47.0); Hemoglobin 10.5 g/dL (11.5-15.3); Lymphocytes # 1.1 10^3/uL (0.8-4.8); Lymphocytes % 13.9 %; Mean Corpuscular HGB Conc 29.4 g/dL (30.0-36.0); Mean Corpuscular Hemoglobin 22.7 pg (28.0-34.0); Mean Corpuscular Volume 77.1 fl (81-99); Mean Platelet Volume 9.9 fL (7.4-10.4); Monocytes # 0.3 10^3/uL (0.2-0.9); Monocytes % 3.7 %; Nucleated Red Blood Cells % 0 %; Platelet Count 284 10^3/cmm (130-400); Red Blood Count 4.63 10^6/uL (4.1-5.3); Red Cell Distribution Width 16.6 % (12.1-15.1); White Blood Count 7.5 10^3/uL (4.0-10.0)
[2023-01-11 11:53] LABS: Alanine Aminotransferase 11 U/L (0-33); Alkaline Phosphatase 102 U/L (35-105); Aspartate Amino Transferase 19 U/L (0-32); Blood Urea Nitrogen 12 mg/dL (6-20); Calcium 8.7 mg/dL (8.5-10.5); Carbon Dioxide 19 mmol/L (22-29); Chloride 104 mmol/L (98-107); Globulin 3.3 g/dL (1.3-4.6); Glucose 98 mg/dL (65-115); Lipase 29 U/L (13-60); Osmolality Calculated 288 mOsm/kg (285-295); Sodium 139 mmol/L (136-145); Total Bilirubin 0.3 mg/dL (0.15-1.2); Total Protein 7.3 g/dL (6.6-8.7)
[2023-01-11] MEDS: iohexol 350 mg/mL 500 mL Btl (per mL) IV (11:56)
[2023-01-11 11:57] LABS: Creatinine Clr Calc Pharmacy 83.4645
--- NOTE | 2023-01-11 12:15 | PC.NURSE ---
TOOK OVER CARE FROM DARLING RN AT 1212
[2023-01-11 12:52] VITALS: BP 169/103; PULSE 78; RESP 16; O2SAT 96
[2023-01-11 13:11] LABS: Urine Color Straw (Yellow)
[2023-01-11 13:12] LABS: Add Urine Culture? No; Add Urine Microscopic? YES; Bacteria Urine TRACE /hpf; Bilirubin Urine Neg (Negative); Blood Urine Neg (Negative); Glucose Urine UA Norm (Normal); Ketones Urine 2+ (Negative); Leukocyte Esterase Urine Negative (Negative); Nitrate Urine Negative (Negative); Protein Urine Neg (Negative); Sulfosalicylic Acid Urine Negative (Negative); Urine Appearance SL Hazy (CLEAR); Urobilinogen Urine Norm (Negative); WBC Urine RARE /hpf (0-5); pH Urine 9 (5-7)
--- NOTE | 2023-01-11 13:17 | W.ED.ABDPA2 ---
HPI - Abdominal Pain General: Chief Complaint: Abdominal Pain Stated Complaint: N/V Time Seen by Provider: 01/11/23 10:59 History of Present Illness: Mee is a 52-year-old female that presents to the emergency department with complaints of nausea vomiting and abdominal discomfort. She has no abdominal pain currently but has had intermittent abdominal pain that is located in the right upper and right lower quadrants. Onset of symptoms last Friday. She reports associated symptoms of headache dizziness, some diarrhea but none in the last 48 hours. Patient was evaluated in the emergency department yesterday by one of my partners. She was discharged home with Reglan but unfortunately the patient was unable to get her prescription filled PFSH ED PFSH: Medical History Asthma Chronic back pain COVID-19 Positive COVID test 08/08/2021. Depression, major, severe recurrence Fibromyalgia Gastritis GERD (gastroesophageal reflux disease) EGD 2021 - normal, polyps in the past. Hypertension Hypothyroidism Surgical History History of History of cholecystectomy History of surgery on arm Family History Other Cancer Social History Smoking and tobacco status: former smoker Second hand smoke exposure: No Alcohol intake: never Substance/Drug Use: never Additional social history: Goes by Leeann Physical Exam Const: COMMON NORMALS: no acute distress, patient oriented x3 and alert GENERAL APPEARANCE: cooperative ORIENTATION/CONSCIOUSNESS: Yes awake, Yes oriented to person, Yes oriented to place and Yes oriented to time HENMT: COMMON NORMALS: normocephalic and atraumatic HEAD & SCALP: normocephalic and atraumatic FACE & SINUS: normal facial exam MOUTH: Normal oral and palatal mucosa present THROAT: posterior oropharynx normal Eye: COMMON NORMALS: Equal, round and reactive pupils present, EOMs intact bilaterally, conjunctivae normal and no scleral icterus GENERAL EYE: appearance normal, both eyes and all related structures ALIGNMENT: Yes alignment normal PERIORBITAL: periorbital findings normal CONJUNCTIVA: Yes conjunctivae normal PUPIL: Yes Equal, round and reactive pupils present Neck/C-Spine: COMMON NORMALS: full ROM GENERAL: Yes normal visual inspection Lymph: LYMPHATIC: no lymphadenopathy noted Chest: COMMONS NORMALS: normal inspection of the chest Breast/axilla inspection: Yes no chest deformity, asymmetry, normal contours, no nodules, masses, tenderness Resp: COMMON NORMALS: normal respiratory effort, No retractions, No use of accessory muscles and clear to auscultation bilaterally EFFORT & INSPECTION: Yes able to speak in complete sentences and Yes symmetric chest movement AUSCULTATION: clear to auscultation bilaterally Cardio: COMMON NORMALS: regular rate, regular rhythm and Peripheral pulses 2+ throughout RATE: regular rate RHYTHM: regular rhythm PERIPHERAL PULSES: Peripheral pulses 2+ throughout GI: COMMON NORMALS: Normal to inspection, nondistended, normoactive bowel sounds present, Soft to palpation, non-tender (Some intermittent mild right sided abdominal tenderness. Mild) and No hepatosplenomegaly present INSPECTION: Yes normal to inspection AUSCULTATION: Yes normoactive bowel sounds PALPATION: Yes Soft to palpation and Yes No hepatosplenomegaly present RECTAL EXAM: deferred Extremity: COMMON NORMALS: normal to inspection GENERAL: Yes normal exam except as noted Neuro: COMMON NORMALS: patient oriented x3 SENSORIUM/ORIENTATION: Yes alert, Yes oriented to person, Yes oriented to place and Yes oriented to time CRANIAL NERVES: Yes CN normal except as noted Psych: COMMON NORMALS: mental status grossly normal, Normal thought process present, cooperative, activity/motor behavior normal, denies homicidal ideation and denies suicidal ideation THOUGHT PROCESS: Normal thought process present Skin: COMMON NORMALS: no rashes or lesions noted, no wounds and turgor normal GENERAL SKIN EXAM: no rashes or lesions noted and turgor normal Course Vital Signs: Vital signs: Vital Signs Temperature 99.3 F 01/11/23 10:46 Pulse Rate 79 01/11/23 13:36 Respiratory Rate 16 01/11/23 13:36 Blood Pressure 240/146 01/11/23 13:36 Pulse Oximetry 97 01/11/23 13:36 Oxygen Delivery Me thod Room Air 01/11/23 13:36 MDM - Abdominal Pain Medical Decision Making Was evaluated in the emergency department today for complaints of nausea and vomiting. Patient had reported that she had some hematemesis. While in the emergency department patient has drank multiple cups of water without any vomiting. She does appear nauseated and is belching but and spite of Reglan, Compazine, Zofran she is still nauseated. I did evaluate her with repeat labs and did a CT of her abdomen and pelvis. CT imaging reveals no abnormal findings other than a renal cyst. Patient is going to follow-up with her primary care doctor regarding this. Patient does have anemia that would benefit from further evaluation. This anemia has been stable for some time. However she will likely need further evaluation . Patient has not been able to cook pickled meat any prescriptions due to her nausea. Therefore, I am going to send her home with 2 Compazine's to hopefully get her better by tomorrow when she can go cook pickled meat her prescriptions I am advising the patient to return to the emergency department for new concerning or worsening symptoms. All questions and Lab Data 01/11/23 10:56 01/11/23 10:56 Labs/Radiology: Radiology Impressions Abdomen/Pelvis CT 01/11/23 11:25 IMPRESSION: 1. No acute findings within the abdomen or pelvis. 2. Mild splenomegaly unchanged. 3. 2.5 cm benign-appearing left renal cyst, stable. Head CT 01/11/23 13:41 IMPRESSION: Negative CT examination of the head. No acute intracranial abnormalities. Laboratory Results WBC 7.5 10^3/uL (4.0-10.0) 01/11/23 10:56 RBC 4.63 10^6/uL (4.1-5.3) 01/11/23 10:56 Hgb 10.5 g/dL (11.5-15.3) L 01/11/23 10:56 Hct 35.7 % (37.0-47.0) L 01/11/23 10:56 MCV 77.1 fl (81-99) L 01/11/23 10:56 MCH 22.7 pg (28.0-34.0) L 01/11/23 10:56 MCHC 29.4 g/dL (30.0-36.0) L 01/11/23 10:56 RDW 16.6 % (12.1-15.1) H 01/11/23 10:56 Plt Count 284 10^3/cmm (130-400) 01/11/23 10:56 MPV 9.9 fL (7.4-10.4) 01/11/23 10:56 Neut % (Auto) 81.0 % 01/11/23 10:56 Lymph % (Auto) 13.9 % 01/11/23 10:56 Union % (Auto) 3.7 % 01/11/23 10:56 Eos % (Auto) 0.0 % 01/11/23 10:56 Baso % (Auto) 0.5 % 01/11/23 10:56 Neut # (Auto) 6.10 10^3/uL (1.8-7.7) 01/11/23 10:56 Lymph # (Auto) 1.1 10^3/uL (0.8-4.8) 01/11/23 10:56 Union # (Auto) 0.3 10^3/uL (0.2-0.9) 01/11/23 10:56 Eos # (Auto) 0.0 10^3/uL (0.0-0.8) 01/11/23 10:56 Baso # (Auto) 0.0 10^3/uL (0.0-0.1) 01/11/23 10:56 Nucleated RBC % (auto) 0 % 01/11/23 10:56 Nucleated RBCs # 0.0 /100WBC 01/11/23 10:56 Sodium 139 mmol/L (136-145) 01/11/23 10:56 Potassium 4.0 mmol/L (3.5-5.1) 01/11/23 10:56 Chloride 104 mmol/L (98-107) 01/11/23 10:56 Carbon Dioxide 19 mmol/L (22-29) L 01/11/23 10:56 Anion Gap 20.0 (5-19) H 01/11/23 10:56 BUN 12 mg/dL (6-20) 01/11/23 10:56 Creatinine 1.0 mg/dL (0.5-0.9) H 01/11/23 10:56 GFR Calculation 58.0 mL/min (90-130) L 01/11/23 10:56 Glucose 98 mg/dL (65-115) 01/11/23 10:56 Calculated Osmolality 288 mOsm/kg (285-295) 01/11/23 10:56 Lactic Acid 1.0 mmol/L (0.5-2.2) 01/11/23 10:56 Calcium 8.7 mg/dL (8.5-10.5) 01/11/23 10:56 Total Bilirubin 0.3 mg/dL (0.15-1.2) 01/11/23 10:56 AST 19 U/L (0-32) 01/11/23 10:56 ALT 11 U/L (0-33) 01/11/23 10:56 Alkaline Phosphatase 102 U/L (35-105) 01/11/23 10:56 Total Protein 7.3 g/dL (6.6-8.7) 01/11/23 10:56 Albumin 4.0 g/dL (3.5-5.2) 01/11/23 10:56 Globulin 3.3 g/dL (1.3-4.6) 01/11/23 10:56 Lipase 29 U/L (13-60) 01/11/23 10:56 Urine Color Straw (Yellow) 01/11/23 12:27 Urine Appearance Sl hazy (CLEAR) A 01/11/23 12:27 Urine pH 9 (5-7) H 01/11/23 12:27 Ur Specific [place] 1.010 (1.005-1.030) 01/11/23 12:27 Urine Protein Neg (Negative) 01/11/23 12:27 Urine Glucose (UA) Norm (Normal) 01/11/23 12:27 Urine Ketones 2+ (Negative) H 01/11/23 12:27 Urine Blood Neg (Negative) 01/11/23 12:27 Urine Nitrate Negative (Negative) 01/11/23 12:27 Urine Bilirubin Neg (Negative) 01/11/23 12:27 Prot Sulfosalicylic Acd Negative (Negative) 01/11/23 12:27 Urine Urobilinogen Norm mg/dL (Negative) 01/11/23 12:27 Ur Leukocyte Esterase Negative (Negative) 01/11/23 12:27 Urine RBC None /hpf (0-2) 01/11/23 12:27 Urine WBC Rare /hpf (0-5) 01/11/23 12:27 Ur Squamous Epith Cells 5-10 /hpf (0-5) H 01/11/23 12:27 Amorphous Sediment Not Reportable 01/11/23 12:27 Urine Bacteria Trace /hpf (NONE) 01/11/23 12:27 Ethyl Alcohol < 10 mg/dL (0-10) 01/11/23 10:56 Discharge Plan Discharge Patient Disposition: Home Clinical Impression: Anemia, Nausea & vomiting Condition: Stable Prescriptions: No Action albuterol sulfate [ProAir HFA] 90 mcg/actuation HFA aerosol inhaler 2 puff inhalation Q6H PRN (Reason: shortness of breath or wheezing) Qty: 8.5 3RF Flovent HFA 110 mcg/actuation HFA aerosol inhaler 1 puff inhalation Q12H 10 Days Qty: 12 0RF tizanidine 2 mg tablet 2 mg PO BID PRN (Reason: muscle spasticity) Qty: 60 0RF esomeprazole magnesium [Nexium] 40 mg capsule,delayed release(DR/EC) 40 mg PO DAILY Qty: 90 3RF amitriptyline 50 mg tablet 50 mg PO BEDTIME Qty: 90 3RF levothyroxine 75 mcg capsule 75 mcg PO DAILY Qty: 90 3RF lisinopril 20 mg tablet 20 mg PO BEDTIME Qty: 90 3RF sertraline 100 mg tablet 100 mg PO BEDTIME Qty: 90 3RF pregabalin 150 mg capsule 150 mg PO TID Qty: 90 5RF montelukast [Singulair] 10 mg tablet 10 mg PO DAILY Qty: 30 11RF hydrocodone-acetaminophen 5-325 mg tablet 1 tab PO DAILY PRN (Reason: pain) 30 Days Qty: 20 0RF methocarbamol 750 mg tablet 750 mg PO Q8H Qty: 21 0RF metoclopramide HCl 10 mg tablet 10 mg PO Q6H PRN (Reason: nausea and vomiting) Qty: 14 0RF cholecalciferol (vitamin D3) [Vitamin D3] 25 mcg (1,000 unit) Capsule 25 mcg PO DAILY [id number] [Nzyqfu-Bktyg-WWR (with antiox)] 500-500-66.7 mg Tablet 1 tab PO BID Discharge Orders: Discharge ED (Routine); Ordered 01/11/23 Ordered By: Maryjane Domingor Referrals: Aidan Garcia MD [Primary Care Provider] - Discharge Diet: Advance as tolerated Discharge Activity: Resume usual activity Patient Instructions: Acute Nausea and Vomiting (ED), Anemia (ED), Pain Management Activity Restrictions/Additional Instructions: Please return to the emergency department for new concerning or worsening symptoms I want you to call your primary care doctor on Friday to further evaluate the anemia noticed and today's labs. Coding Level of Care Code ED Meat Stuffer for Urvashi Collins
[2023-01-11 13:36] VITALS: BP 240/146; PULSE 79; RESP 16; O2SAT 97
[2023-01-11] MEDS: labetalol 5 mg/mL SDV 20mL 20 MG IVP (13:38)
[2023-01-11] MEDS: prochlorperazine 10 mg Tablet PO (13:41)
--- NOTE | 2023-01-11 13:41 | CTR_ITS ---
PROCEDURE INFORMATION: Exam: CT Head Without Contrast Exam date and time: 01/11/2023 2:14 PM Age: 52 years old Clinical indication: Pain; Dizziness; Headache; Additional info: Dizziness and headache TECHNIQUE: Imaging protocol: Computed tomography of the head without contrast. Radiation optimization: All CT scans at this facility use at least one of these dose optimization techniques: automated exposure control; mA and/or kV adjustment per patient size (includes targeted exams where dose is matched to clinical indication); or iterative reconstruction. REPORTING DATA: Count of CT and Cardiac NM exams in prior 12 months: This patient has received [address] and 0 known cardiac nuclear medicine studies in the 12 months prior to the current study. COMPARISON: CT head wo con* [id number] 12/10/2021 6:11 PM RADIATION DOSE METRICS: Total DLP (mGy-cm): 1062.53 FINDINGS: Brain: Normal. No hemorrhage. No space-occupying masses or areas of mass effect. No edema or midline shift. Cortical sulci are unremarkable for age. Cerebral ventricles: No ventriculomegaly. Paranasal sinuses: Visualized sinuses are unremarkable. No fluid levels. Mastoid air cells: Visualized mastoid air cells are well aerated. Bones/joints: Unremarkable. Soft tissues: Unremarkable. CT/CT head wo con* [id number] IMPRESSION: Negative CT examination of the head. No acute intracranial abnormalities.
[2023-01-11] MEDS: pantoprazole 40 mg SDV IVP (13:45)
[2023-01-11 14:43] LABS: Alcohol Level < 10 mg/dL (0-10)
--- NOTE | 2023-01-11 15:42 | PC.NURSE ---
2ND LITER OF FLUIDS NOT GIVEN [facility] APPROVED DUE TO WRONG ORDER. COMPAZINE NOT GIVEN DUE TO [facility] WANTING TO SEND MEDICATIONS HOME WITH PT
== END 2023-01-11 15:58 | disposition home or self-care (01) ==
PROVIDERS: Emergency Provider Nurse Practitioner; PCP Family Medicine
DX: R11.2 Nausea with vomiting, unspecified (principal); D64.9 Anemia, unspecified
CPT/HCPCS: 70450; 74177; 80053; 80307; 81001; 83605; 83690; 85025; 96374; 96375; 99285; C9113; J2765; J3490; J7030; Q0164; Q9967

== ENCOUNTER → 2023-01-22 14:23 | Outpatient (BNVA) | payer MEDICARE, MEDICAID, SELFPAY | PROVIDERS: PCP Family Medicine; Visit Provider Anesthesiology Pain Medicine | DX: M47.816 Spondylosis without myelopathy or radiculopathy, lumbar region (principal) | CPT/HCPCS: 64493; 64494; 64495; J3490 ==

== ENCOUNTER → 2023-02-10 11:18 | Outpatient (BNVA) | payer MEDICARE, MEDICAID, SELFPAY | PROVIDERS: PCP Family Medicine; Visit Provider Anesthesiology Pain Medicine | DX: M47.816 Spondylosis without myelopathy or radiculopathy, lumbar region (principal); M51.36 Other intervertebral disc degeneration, lumbar region | CPT/HCPCS: 72072; 99214 ==

== ENCOUNTER → 2023-02-11 09:40 | Outpatient (BNVA) | payer MEDICARE, MEDICAID, SELFPAY | PROVIDERS: PCP Family Medicine; Visit Provider Specialist | DX: G62.89 Other specified polyneuropathies (principal); R79.89 Other specified abnormal findings of blood chemistry; M79.7 Fibromyalgia; N28.1 Cyst of kidney, acquired | CPT/HCPCS: 99213 ==

== ENCOUNTER → 2023-03-06 10:02 | Outpatient (BNVA) | payer MEDICARE, MEDICAID, SELFPAY | PROVIDERS: PCP Family Medicine; Visit Provider Anesthesiology Pain Medicine | DX: M47.816 Spondylosis without myelopathy or radiculopathy, lumbar region (principal); M51.36 Other intervertebral disc degeneration, lumbar region | CPT/HCPCS: 99214 ==

== ENCOUNTER → 2023-04-07 10:11 | Outpatient (BNVA) | payer MEDICARE, MEDICAID, SELFPAY | PROVIDERS: PCP Family Medicine; Visit Provider Anesthesiology Pain Medicine | DX: M17.0 Bilateral primary osteoarthritis of knee (principal); M47.816 Spondylosis without myelopathy or radiculopathy, lumbar region; M51.36 Other intervertebral disc degeneration, lumbar region | CPT/HCPCS: 99214 ==

== ENCOUNTER 2023-04-30 09:41 | Outpatient (CLI) | payer MEDICARE, MEDICAID, SELFPAY ==
--- NOTE | 2023-04-30 10:15 | US_ITS ---
WS: [id number] ULTRASOUND SOFT TISSUES RIGHT axilla HISTORY: right axillary mass COMPARISON: None available. TECHNIQUE: 2-D and color Doppler imaging is submitted. Ultrasound is directed to the RIGHT axilla at the area of clinical concern. No soft tissue mass ident ified. There is no distortion of the soft tissues. No shadowing. IMPRESSION: Normal RIGHT axillary ultrasound. No mass identified.
== END 2023-04-30 09:42 | disposition home or self-care (01) ==
PROVIDERS: PCP Family Medicine; Visit Provider Family Medicine
DX: R22.31 Localized swelling, mass and lump, right upper limb (principal)
CPT/HCPCS: 76882

== ENCOUNTER 2023-05-21 14:06 | Outpatient (CLI) | payer MEDICARE, SELFPAY ==
--- NOTE | 2023-05-21 14:24 | MM_ITS ---
WS: [id number] Bilateral screening 3D tomosynthesis digital mammogram, 05/21/2023 Clinical Data: Z00.00 - Encounter for general adult medical examination ... Comparison: 12/07/2020 Findings: The breast parenchymal pattern shows fat replacement. No spiculated masses or clustered calcification s are seen. There are no secondary signs of carcinoma. Impression: 1. Negative bilateral mammogram unchanged. 2. Recommend annual screening mammograms. MM/[place] [id number] BIRADS: 1-Negative FOLLOW UP: 1 Year Follow-up The CAD cash checker was used.
== END 2023-05-21 14:07 | disposition home or self-care (01) ==
LOC: RAD 14:09
PROVIDERS: PCP Family Medicine; Visit Provider Family Medicine
DX: Z12.31 Encounter for screening mammogram for malignant neoplasm of breast (principal)
CPT/HCPCS: 77063; 77067

== ENCOUNTER → 2023-06-04 12:56 | Outpatient (BNVA) | payer MEDICARE, SELFPAY | PROVIDERS: PCP Family Medicine; Visit Provider Anesthesiology Pain Medicine | DX: M51.36 Other intervertebral disc degeneration, lumbar region (principal); M47.816 Spondylosis without myelopathy or radiculopathy, lumbar region | CPT/HCPCS: 99214 ==

== ENCOUNTER 2023-06-12 08:18 | Outpatient (RCR) | payer MEDICARE, MEDICAID, SELFPAY | END 2023-06-24 23:59 | disposition home or self-care (01) | LOC: SPT 08:18 | PROVIDERS: PCP Family Medicine; Visit Provider Anesthesiology Pain Medicine | DX: M50.30 Other cervical disc degeneration, unspecified cervical region (principal) | CPT/HCPCS: 97032; 97110; 97161 ==

== ENCOUNTER → 2023-06-24 10:13 | Outpatient (BNVA) | payer MEDICARE, SELFPAY | PROVIDERS: PCP Family Medicine; Visit Provider Anesthesiology Pain Medicine | DX: M79.18 Myalgia, other site (principal); M54.16 Radiculopathy, lumbar region; M47.816 Spondylosis without myelopathy or radiculopathy, lumbar region; M51.36 Other intervertebral disc degeneration, lumbar region; M25.561 Pain in right knee; M25.562 Pain in left knee | CPT/HCPCS: 20553; 99214; J1030; J3490 ==

== ENCOUNTER 2023-06-25 06:00 | Outpatient (RCR) | payer MEDICARE, MEDICAID, SELFPAY | END 2023-07-24 23:59 | disposition home or self-care (01) | LOC: SPT 06:00 | PROVIDERS: PCP Family Medicine; Visit Provider Anesthesiology Pain Medicine | DX: M50.30 Other cervical disc degeneration, unspecified cervical region (principal) | CPT/HCPCS: 97110; 97530 ==

== ENCOUNTER → 2023-06-30 14:07 | Outpatient (BNVA) | payer MEDICARE, MEDICAID, SELFPAY | PROVIDERS: PCP Family Medicine; Visit Provider Family Medicine | DX: M51.36 Other intervertebral disc degeneration, lumbar region (principal); I10 Essential (primary) hypertension; E03.9 Hypothyroidism, unspecified; F33.2 Major depressive disorder, recurrent severe without psychotic features | CPT/HCPCS: 80053; 84443 ==

== ENCOUNTER → 2023-08-26 08:45 | Outpatient (BNVA) | payer MEDICARE, MEDICAID, SELFPAY | PROVIDERS: PCP Family Medicine; Visit Provider Anesthesiology Pain Medicine | DX: M51.36 Other intervertebral disc degeneration, lumbar region (principal); M47.816 Spondylosis without myelopathy or radiculopathy, lumbar region | CPT/HCPCS: 99214 ==

== ENCOUNTER 2023-11-24 11:21 | Outpatient (RCR) | payer MEDICARE, MEDICAID, SELFPAY | END 2023-12-23 23:59 | disposition home or self-care (01) | LOC: SPT 11:21 | PROVIDERS: PCP Family Medicine; Visit Provider Anesthesiology Pain Medicine | DX: M50.30 Other cervical disc degeneration, unspecified cervical region (principal) | CPT/HCPCS: 97110; 97161 ==

== ENCOUNTER → 2023-11-25 08:58 | Outpatient (BNVA) | payer MEDICARE, MEDICAID, SELFPAY | PROVIDERS: PCP Family Medicine; Visit Provider Anesthesiology Pain Medicine | DX: M51.36 Other intervertebral disc degeneration, lumbar region (principal); M47.816 Spondylosis without myelopathy or radiculopathy, lumbar region; M17.9 Osteoarthritis of knee, unspecified | CPT/HCPCS: 99214 ==

== ENCOUNTER 2023-12-01 14:15 | Emergency (ER) | payer MEDICARE, MEDICAID, SELFPAY ==
[2023-12-01 14:20] VITALS: BP 149/84; PULSE 74; RESP 16; TEMP 36.9; O2SAT 99; BMI 47.2
--- NOTE | 2023-12-01 14:38 | XRR_ITS ---
PROCEDURE INFORMATION: Exam: XR Right Wrist Exam date and time: 12/01/2023 2:54 PM Age: 53 years old Clinical indication: Injury or trauma; Fall; Blunt trauma (contusions or hematomas); Wrist; Right TECHNIQUE: Imaging protocol: Radiologic exam of the right wrist. Views: 3 or more views. COMPARISON: US soft tissue/extremity [id number] 04/30/2023 10:27 AM FINDINGS: Bones/joints: No fracture or other acute abnormality. Degenerative changes are seen in the distal navicular articulations Soft tissues: Normal. XR/XR wrist RT min 3V* [id number] IMPRESSION: Nonacute findings.
--- NOTE | 2023-12-01 14:55 | ED_ITS ---
HPI - Extremity Injury (Upper) General: Chief Complaint: Extremity Injury, Upper Stated Complaint: right wrist pain Time Seen by Provider: 12/01/23 14:50 Source: patient Mode of arrival: ambulatory Limitations: no limitations History of Present Illness: Patient is a nice 53-year-old female presents to ED today for evaluation of right wrist pain following a fall just prior to arrival. Patient states she tripped after a dog bit her to the back of her left lower leg. Bite was through her jeans and did not break the skin. No other injuries noted on the fall apart from her right wrist. MD complaint: injury to: right and wrist Onset (ago): hour(s) Other Extremity Injury: Right: wrist Other injuries: none Place: home Severity: moderate Relieving factors: immobilization Exacerbating factors: movement of extremity Context: fall Associated symptoms: Reports no associated symptoms Review of Systems Musc: Reports: joint pain (R wrist) and joint swelling (R wrist) Skin/Breast: Reports: other (minimal abrasion L posterior lower leg; did not puncture through her jeans) Neuro: Denies: numbness in extremities or sensory changes PFSH ED PFSH: Medical History COVID-19 Positive COVID test 08/08/2021. Chronic back pain Asthma Hypertension Hypothyroidism Gastritis GERD (gastroesophageal reflux disease) EGD 2021 - normal, polyps in the past. Fibromyalgia Depression, major, severe recurrence Surgical History History of surgery on arm History of cholecystectomy History of Family History Other Cancer Social History Smoking and tobacco/nicotine status: former use of tobacco/nicotine Second hand smoke exposure: No Alcohol intake: never Substance/Drug Use: never Additional social history: Goes by Leeann Physical Exam Const: COMMON NORMALS: no acute distress, no limitations and well nourished Extremity: COMMON NORMALS: capillary refill normal GENERAL: Yes normal exam except as noted RIGHT UPPER EXTREMITY: Yes wrist Right wrist: Yes palpation (TTP distal radius; does have scaphoid tenderness), Yes ROM (extremely limited ROM secondary to pain) and Yes neurovascular exam (normal) Neuro: COMMON NORMALS: moves all extremities, no focal motor deficits and no sensory deficits noted Course Vital Signs: Vital signs: Vital Signs Temperature 98.4 F 12/01/23 14:20 Pulse Rate 74 12/01/23 14:20 Respiratory Rate 16 12/01/23 14:20 Blood Pressure 149/84 12/01/23 14:20 Pulse Oximetry 99 12/01/23 14:20 Oxygen Delivery Me thod Room Air 12/01/23 14:20 MDM - Extremity Injury (Upper) Medical Decision Making Patient is exquisitely tender to her distal radius and into her scaphoid. X-ray is normal. Based on examination/clinical suspicion she will be placed in a splint and will have her follow-up with orthopedics. Differential Diagnosis Likely sprain and strain of wrist and fracture of wrist Medical Records I reviewed the patient's medical records. Lab Data Radiology Impressions Wrist X-Ray 12/01/23 14:38 IMPRESSION: Nonacute findings. All radiology interpretation(s) finalized by discharge Discharge Plan Discharge Patient Disposition: Home Clinical Impression: Injury of right wrist Qualifiers: Encounter type: initial encounter Qualified Code(s): S69.91XA - Unspecified injury of right wrist, hand and finger(s), initial encounter Condition: Stable Prescriptions: No Action albuterol sulfate [ProAir HFA] 90 mcg/actuation HFA aerosol inhaler 2 puff inhalation Q6H PRN (Reason: shortness of breath or wheezing) Qty: 8.5 3RF Flovent HFA 110 mcg/actuation HFA aerosol inhaler 1 puff inhalation Q12H 10 Days Qty: 12 0RF amitriptyline 50 mg tablet 50 mg PO BEDTIME Qty: 90 3RF montelukast [Singulair] 10 mg tablet 10 mg PO DAILY Qty: 30 11RF diclofenac sodium 1 % gel 4 g topical QID Qty: 100 2RF Rx Instructions: apply to single knee, ankle, foot; for foot includes sole/toes/top of foot hydrocodone-acetaminophen 5-325 mg tablet 1 tab PO DAILY PRN (Reason: pain) 30 Days Qty: 20 0RF baclofen 10 mg tablet 10 mg PO BID PRN (Reason: spasm) Qty: 60 0RF diazepam 10 mg tablet 10 mg PO ONCE PRN (Reason: anxiety) Qty: 1 0RF Rx Instructions: Take 1 hour prior to procedure. pregabalin 150 mg capsule 150 mg PO TID Qty: 90 5RF sertraline 100 mg tablet 100 mg PO BEDTIME Qty: 90 3RF esomeprazole magnesium [Nexium] 40 mg capsule,delayed release(DR/EC) 40 mg PO DAILY Qty: 90 3RF levothyroxine 75 mcg capsule 75 mcg PO DAILY Qty: 90 3RF metoclopramide HCl 10 mg tablet 10 mg PO Q6H PRN (Reason: nausea and vomiting) Qty: 14 0RF cholecalciferol (vitamin D3) [Vitamin D3] 25 mcg (1,000 unit) Capsule 25 mcg PO DAILY [id number] [Oblwkl-Ssvte-QHE (with antiox)] 500-500-66.7 mg Tablet 1 tab PO BID Discharge Orders: Discharge ED (Routine); Ordered 12/01/23 Ordered By: Aneta Medina Referrals: Aidan Garcia MD [Primary Care Provider] - Activity Restrictions/Additional Instructions: As we discussed I do not see anything obvious on your x-ray today however clinically I am concerned there could be a fracture present therefore we are placing you in a splint and having you follow-up with orthopedics. You may ice and elevate the extremity as well as take dhcs-hho-wnzrnfx analgesics such as Ibuprofen or Tylenol. Case management should reach out to you this week to set you up with your follow-up appointment. Coding Level of Care Code ED Gyroscopic Instrument Tester for Urvashi Collins
--- NOTE | 2023-12-02 15:19 | PC.SOCIAL ---
Ortho Referral Referral to clinic at this time. Clinic to contact patient with appt date/time.
== END 2023-12-01 15:47 | disposition home or self-care (01) ==
PROVIDERS: Emergency Provider Physician Assistant; PCP Family Medicine
DX: S80.872A Other superficial bite, left lower leg, initial encounter (principal); W54.0XXA Bitten by dog, initial encounter; S69.91XA Unspecified injury of right wrist, hand and finger(s), initial encounter; I10 Essential (primary) hypertension; Z87.891 Personal history of nicotine dependence
CPT/HCPCS: 73110; 99283

== ENCOUNTER 2023-12-05 06:00 | Outpatient (CLI) | payer MEDICARE, MEDICAID, SELFPAY | END 2023-12-05 06:01 | LOC: SOT 12-08 09:48 | PROVIDERS: PCP Family Medicine; Visit Provider Student in an Organized Health Care Education/Training Program | DX: Z46.89 Encounter for fitting and adjustment of other specified devices (principal); S69.91XD Unspecified injury of right wrist, hand and finger(s), subsequent encounter; W19.XXXD Unspecified fall, subsequent encounter | CPT/HCPCS: L3807 ==

== ENCOUNTER → 2023-12-05 08:48 | Outpatient (BNVA) | payer MEDICARE, MEDICAID, SELFPAY | PROVIDERS: PCP Family Medicine; Referring Provider Physician Assistant; Visit Provider Student in an Organized Health Care Education/Training Program | DX: S69.91XA Unspecified injury of right wrist, hand and finger(s), initial encounter (principal); S62.101A Fracture of unspecified carpal bone, right wrist, initial encounter for closed fracture; W18.30XA Fall on same level, unspecified, initial encounter; Z46.89 Encounter for fitting and adjustment of other specified devices; S69.91XD Unspecified injury of right wrist, hand and finger(s), subsequent encounter; W19.XXXD Unspecified fall, subsequent encounter | CPT/HCPCS: 73110; 99204; L3807 ==

== ENCOUNTER 2023-12-24 06:00 | Outpatient (RCR) | payer MEDICARE, MEDICAID, SELFPAY | END 2024-01-23 23:59 | disposition home or self-care (01) | LOC: SPT 06:00 | PROVIDERS: PCP Family Medicine; Visit Provider Anesthesiology Pain Medicine | DX: M50.30 Other cervical disc degeneration, unspecified cervical region (principal) | CPT/HCPCS: 97110 ==

== ENCOUNTER → 2024-01-08 08:32 | Outpatient (BNVA) | payer MEDICARE, MEDICAID, SELFPAY | PROVIDERS: PCP Family Medicine; Visit Provider Student in an Organized Health Care Education/Training Program | DX: S62.101A Fracture of unspecified carpal bone, right wrist, initial encounter for closed fracture (principal); S52.501A Unspecified fracture of the lower end of right radius, initial encounter for closed fracture; X58.XXXA Exposure to other specified factors, initial encounter | CPT/HCPCS: 73110 ==

== ENCOUNTER 2024-01-08 10:57 | Outpatient (CLI) | payer MEDICARE, MEDICAID, SELFPAY | END 2024-01-08 10:58 | disposition home or self-care (01) | LOC: SPT 10:58 | PROVIDERS: PCP Family Medicine; Visit Provider Student in an Organized Health Care Education/Training Program | DX: S52.501A Unspecified fracture of the lower end of right radius, initial encounter for closed fracture (principal); X58.XXXA Exposure to other specified factors, initial encounter | CPT/HCPCS: 99213 ==

== ENCOUNTER → 2024-01-26 09:46 | Outpatient (BNVA) | payer MEDICARE, MEDICAID, SELFPAY | PROVIDERS: PCP Family Medicine; Visit Provider Anesthesiology Pain Medicine | DX: M47.816 Spondylosis without myelopathy or radiculopathy, lumbar region (principal); M51.36 Other intervertebral disc degeneration, lumbar region | CPT/HCPCS: 99214 ==

== ENCOUNTER 2024-01-28 13:48 | Outpatient (RCR) | payer MEDICARE, MEDICAID, SELFPAY | END 2024-02-22 23:59 | disposition home or self-care (01) | LOC: SOT 13:48 | PROVIDERS: PCP Family Medicine; Visit Provider Student in an Organized Health Care Education/Training Program | DX: S52.501D Unspecified fracture of the lower end of right radius, subsequent encounter for closed fracture with routine healing (principal); X58.XXXD Exposure to other specified factors, subsequent encounter | CPT/HCPCS: 97022; 97110; 97140; 97165 ==

== ENCOUNTER 2024-02-23 23:59 | Outpatient (RCR) | payer MEDICARE, MEDICAID, SELFPAY | END 2024-03-24 23:59 | disposition home or self-care (01) | LOC: SOT 23:59 | PROVIDERS: PCP Family Medicine; Visit Provider Student in an Organized Health Care Education/Training Program | DX: S52.501D Unspecified fracture of the lower end of right radius, subsequent encounter for closed fracture with routine healing (principal); X58.XXXD Exposure to other specified factors, subsequent encounter | CPT/HCPCS: 97022; 97110 ==

== ENCOUNTER → 2024-03-04 13:07 | Outpatient (BNVA) | payer MEDICARE, MEDICAID, SELFPAY | PROVIDERS: PCP Family Medicine; Visit Provider Physician Assistant | DX: S52.501A Unspecified fracture of the lower end of right radius, initial encounter for closed fracture; W19.XXXA Unspecified fall, initial encounter | CPT/HCPCS: 73110; 99213 ==

== ENCOUNTER → 2024-06-08 09:51 | Outpatient (BNVA) | payer MEDICARE, MEDICAID, SELFPAY | PROVIDERS: PCP Family Medicine; Visit Provider Family Medicine | DX: I10 Essential (primary) hypertension (principal); E03.9 Hypothyroidism, unspecified; R53.1 Weakness; R79.89 Other specified abnormal findings of blood chemistry; E11.9 Type 2 diabetes mellitus without complications | CPT/HCPCS: 80053; 80061; 82607; 84443; 85025 ==

== ENCOUNTER 2024-06-11 15:01 | Emergency (ER) | payer MEDICARE, MEDICAID, SELFPAY ==
--- NOTE | 2024-06-11 15:06 | XR_ITS ---
WS: [id number] Left knee, 3 views, 06/11/2024 Clinical Data: injury Comparison: AP both knees, left knee, 02/07/2022 Findings: No fractures or dislocations are seen. The joint spaces are normal. The patella shows minimal posteri or irregularity. The soft tissues are unremarkable. XR/XR knee LT 3V* [id number] Impression: Minimal irregularity of posterior left patella Kellgren-Kannan Classification: grade 1 (doubtful): doubtful joint space narr owing and possible osteophytic lipping
[2024-06-11 15:18] VITALS: BP 143/81; PULSE 73; RESP 17; TEMP 36.7; O2SAT 97; BMI 46.8
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
[2024-06-11 16:19] VITALS: BP 163/96; PULSE 69; O2SAT 92
--- NOTE | 2024-06-14 08:36 | DCPLANNER ---
messaged ortho for er f/u
== END 2024-06-11 16:21 | disposition home or self-care (01) ==
PROVIDERS: Emergency Provider Emergency Medicine; PCP Family Medicine
DX: M25.562 Pain in left knee (principal); Z87.891 Personal history of nicotine dependence; I10 Essential (primary) hypertension
CPT/HCPCS: 29530; 73562; 99283; E0114

== ENCOUNTER → 2024-06-16 09:10 | Outpatient (BNVA) | payer MEDICARE, MEDICAID, SELFPAY | PROVIDERS: PCP Family Medicine; Visit Provider Family Medicine | DX: Z01.419 Encounter for gynecological examination (general) (routine) without abnormal findings (principal) | CPT/HCPCS: 87624 ==

== ENCOUNTER 2024-06-22 13:21 | Outpatient (CLI) | payer MEDICARE, MEDICAID, SELFPAY ==
[2024-06-22 13:55] LABS: Reticulocyte % 2.7 % (0.5-2.0)
[2024-06-22 14:35] LABS: Ferritin 8 ng/mL (15-150); Iron 22 ug/dL (37-145); Percent Saturation 5.4 % (20-50); Total Iron Binding Capacity 407 mcg/dl; Unsaturated Iron Binding 385 ug/dL (112-347); Vitamin B12 528 pg/mL (232-1245)
== END 2024-06-22 13:22 | disposition home or self-care (01) ==
LOC: LAB 13:22
PROVIDERS: PCP Family Medicine; Visit Provider Family Medicine
DX: D64.9 Anemia, unspecified (principal); M25.562 Pain in left knee
CPT/HCPCS: 36415; 82607; 82728; 83010; 83540; 83550; 85045

== ENCOUNTER → 2024-06-30 13:42 | Outpatient (BNVA) | payer MEDICARE, MEDICAID, SELFPAY | PROVIDERS: PCP Family Medicine; Visit Provider Family Medicine | DX: K21.9 Gastro-esophageal reflux disease without esophagitis (principal) | CPT/HCPCS: 82270 ==

== ENCOUNTER → 2024-07-02 11:24 | Outpatient (BNVA) | payer MEDICARE, MEDICAID, SELFPAY | PROVIDERS: PCP Family Medicine; Visit Provider Physician Assistant | DX: M23.209 Derangement of unspecified meniscus due to old tear or injury, unspecified knee (principal); M25.562 Pain in left knee; R03.0 Elevated blood-pressure reading, without diagnosis of hypertension | CPT/HCPCS: 73560; 73565; 99213 ==

== ENCOUNTER → 2024-07-19 10:14 | Outpatient (BNVA) | payer MEDICARE, MEDICAID, SELFPAY | PROVIDERS: PCP Family Medicine; Referring Provider Family Medicine; Visit Provider Surgery | DX: D50.9 Iron deficiency anemia, unspecified (principal); K21.9 Gastro-esophageal reflux disease without esophagitis; Z86.0100 Personal history of colon polyps, unspecified; Z80.0 Family history of malignant neoplasm of digestive organs | CPT/HCPCS: 99204 ==

== ENCOUNTER 2024-07-28 09:20 | Day surgery (SDC) | payer MEDICARE, MEDICAID, SELFPAY ==
[2024-07-28 09:49] VITALS: BP 144/85; PULSE 88; RESP 18; TEMP 37.1; O2SAT 96; BMI 47.2
[2024-07-28] MEDS: sodium chloride 0.9% 500 ML 15 ML IV (10:07)
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
--- NOTE | 2024-07-28 11:13 | W.PM.OPSUD ---
Surgery/Procedure H&P Update DATE OF PROCEDURE: July 28, 2024 DATE H&P PERFORMED: 07/19/24 H&P UPDATE INFORMATION: I have reviewed H&P completed within last 30 days, I have examined patient prior to procedure and No changes to prior documentation PREOP DIAGNOSIS: GERD, SCreening PLANNED PROCEDURE: Operation Date: 07/28/24 10:30 Proposed Procedures p EGD 88651, 25901, G0105, D50.9, J21.9, Z86.0100, Z8.0(Not Applicable) - DO cony Burdick Colonoscopy(Not Applicable) - Armand Daley DO
[2024-07-28 11:32] VITALS: BP 103/71; PULSE 75; RESP 18; TEMP 36.1; O2SAT 90
[2024-07-28 11:55] VITALS: BP 124/82; PULSE 71; RESP 18; O2SAT 93
--- NOTE | 2024-07-28 12:01 | ANE.PACU2 ---
Inpatient post-anesthesia follow up: Airway intact: Yes Vital signs: Temperature 97.0 F Pulse Rate 71 Respiratory Rate 18 Blood Pressure 124/82 Pulse Oximetry 93 Oxygen Delivery Me thod Room Air Oxygen Flow Rate 3 Fraction of Inspir ed Oxygen Hydration adequate: Yes Nausea and vomiting: No Pain level: 1 Mental status: Baseline
== END 2024-07-28 12:01 | disposition home or self-care (01) ==
PROVIDERS: PCP Family Medicine; Visit Provider Surgery
PROC: 0DJ08ZZ Inspection of Upper Intestinal Tract, Via Natural or Artificial Opening Endoscopic (ICD-10-PCS; CPT 43235; principal; 2024-07-28 10:30)
PROC: 0DJD8ZZ Inspection of Lower Intestinal Tract, Via Natural or Artificial Opening Endoscopic (ICD-10-PCS; CPT 45378; 2024-07-28 10:30)
DX: Z12.11 Encounter for screening for malignant neoplasm of colon (principal); K29.50 Unspecified chronic gastritis without bleeding; K21.00 Gastro-esophageal reflux disease with esophagitis, without bleeding; Z80.0 Family history of malignant neoplasm of digestive organs; I10 Essential (primary) hypertension; M79.7 Fibromyalgia; E03.9 Hypothyroidism, unspecified; K21.9 Gastro-esophageal reflux disease without esophagitis
CPT/HCPCS: 43239; 88305; 88312; 88342; G0121; J2704; J3490; J7040

== ENCOUNTER → 2024-08-09 14:24 | Outpatient (BNVA) | payer MEDICARE, SELFPAY | PROVIDERS: PCP Family Medicine; Visit Provider Surgery | DX: Z86.0100 Personal history of colon polyps, unspecified (principal); R13.10 Dysphagia, unspecified; R03.0 Elevated blood-pressure reading, without diagnosis of hypertension; Z80.0 Family history of malignant neoplasm of digestive organs; K21.9 Gastro-esophageal reflux disease without esophagitis; K20.90 Esophagitis, unspecified without bleeding | CPT/HCPCS: 99214 ==

== ENCOUNTER → 2024-08-10 13:33 | Outpatient (BNVA) | payer MEDICARE, SELFPAY | PROVIDERS: PCP Family Medicine; Visit Provider Family Medicine | DX: D50.9 Iron deficiency anemia, unspecified (principal); M25.562 Pain in left knee; D64.9 Anemia, unspecified | CPT/HCPCS: 83540; 85025 ==

== ENCOUNTER 2024-09-08 06:51 | Day surgery (SDC) | payer MEDICARE, SELFPAY ==
[2024-09-08 07:11] VITALS: BP 142/92; PULSE 83; RESP 18; TEMP 36.7; O2SAT 92; BMI 47.0
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
--- NOTE | 2024-09-08 08:22 | W.PM.OPSUD ---
Surgery/Procedure H&P Update DATE OF PROCEDURE: September 08, 2024 DATE H&P PERFORMED: 08/09/24 H&P UPDATE INFORMATION: I have reviewed H&P completed within last 30 days, I have examined patient prior to procedure and No changes to prior documentation PREOP DIAGNOSIS: difficulty swallowing PLANNED PROCEDURE: Operation Date: 09/08/24 08:00 Proposed Procedures p EGD Dilation W/ Balloon 56878, 66454, G0105, Z86.0100, R13.10(Not Applicable) - DO cony Burdick Colonoscopy(Not Applicable) - Armand Daley DO
[2024-09-08 09:29] VITALS: BP 119/56; PULSE 73; RESP 16; TEMP 36.2; O2SAT 93
[2024-09-08] MEDS: sodium chloride 0.9% 500 ML 15 ML IV (09:43)
[2024-09-08 09:44] VITALS: BP 105/55; PULSE 63; RESP 16; O2SAT 94
--- NOTE | 2024-09-08 09:57 | ANE.PACU2 ---
Inpatient post-anesthesia follow up: Airway intact: Yes Vital signs: Temperature 97.2 F Pulse Rate 63 Respiratory Rate 16 Blood Pressure 105/55 Pulse Oximetry 94 Oxygen Delivery Me thod Room Air Oxygen Flow Rate Fraction of Inspir ed Oxygen Hydration adequate: Yes Nausea and vomiting: No Pain level: 1 Mental status: Baseline
== END 2024-09-08 09:57 | disposition home or self-care (01) ==
PROVIDERS: PCP Family Medicine; Visit Provider Surgery
PROC: 0DJD8ZZ Inspection of Lower Intestinal Tract, Via Natural or Artificial Opening Endoscopic (ICD-10-PCS; CPT 45378; 2024-09-08 08:00)
DX: Z12.11 Encounter for screening for malignant neoplasm of colon (principal); Z86.0100 Personal history of colon polyps, unspecified; R13.10 Dysphagia, unspecified; K21.00 Gastro-esophageal reflux disease with esophagitis, without bleeding; K22.2 Esophageal obstruction; K44.9 Diaphragmatic hernia without obstruction or gangrene; K29.70 Gastritis, unspecified, without bleeding; I10 Essential (primary) hypertension; Z80.0 Family history of malignant neoplasm of digestive organs; E03.9 Hypothyroidism, unspecified; M79.7 Fibromyalgia
CPT/HCPCS: 43239; 43249; 88305; G0121; J2704; J7040

== ENCOUNTER → 2024-09-20 10:11 | Outpatient (BNVA) | payer MEDICARE, SELFPAY | PROVIDERS: PCP Family Medicine; Visit Provider Surgery | DX: Z09 Encounter for follow-up examination after completed treatment for conditions other than malignant neoplasm (principal); R03.0 Elevated blood-pressure reading, without diagnosis of hypertension; K21.9 Gastro-esophageal reflux disease without esophagitis; K21.00 Gastro-esophageal reflux disease with esophagitis, without bleeding | CPT/HCPCS: 99214 ==

== ENCOUNTER → 2024-09-21 13:30 | Outpatient (BNVA) | payer MEDICARE, SELFPAY | PROVIDERS: PCP Family Medicine; Visit Provider Family Medicine | DX: D50.9 Iron deficiency anemia, unspecified (principal); L65.9 Nonscarring hair loss, unspecified | CPT/HCPCS: 85025 ==

== ENCOUNTER → 2024-11-02 13:54 | Outpatient (BNVA) | payer MEDICARE, SELFPAY | PROVIDERS: PCP Family Medicine; Visit Provider Nurse Practitioner Family | DX: R53.83 Other fatigue (principal); L65.9 Nonscarring hair loss, unspecified; L23.9 Allergic contact dermatitis, unspecified cause; D22.39 Melanocytic nevi of other parts of face; L81.4 Other melanin hyperpigmentation | CPT/HCPCS: 99204 ==

== ENCOUNTER 2024-11-04 11:08 | Outpatient (CLI) | payer MEDICARE, SELFPAY ==
[2024-11-04 12:39] LABS: Ferritin 43 ng/mL (15-150); Thyroid Stimulating Hormone 6.37 uIU/mL (0.27-4.20)
[2024-11-04 12:50] LABS: Vitamin B12 541 pg/mL (232-1245)
[2024-11-04 13:21] LABS: Free T4 Free Thyroxine 0.96 ng/dL (0.82-1.77)
== END 2024-11-04 11:09 | disposition home or self-care (01) ==
LOC: LAB 11:11
PROVIDERS: PCP Family Medicine; Visit Provider Nurse Practitioner Family
DX: R53.83 Other fatigue (principal); L65.9 Nonscarring hair loss, unspecified
CPT/HCPCS: 36415; 82607; 82728; 82746; 84439; 84443; 84630

== ENCOUNTER → 2025-02-10 11:03 | Outpatient (BNVA) | payer MEDICARE, SELFPAY | PROVIDERS: PCP Family Medicine; Visit Provider Physician Assistant | DX: M25.561 Pain in right knee (principal); M25.862 Other specified joint disorders, left knee; M25.861 Other specified joint disorders, right knee; M17.0 Bilateral primary osteoarthritis of knee | CPT/HCPCS: 20610; 73560; 73565; 99213; J3301; J9999 ==